=== PATIENT | female | born 1975 | race Two or more races ===

== ENCOUNTER 2019-12-08 17:23 | Emergency (ER) | payer OTHER, SELFPAY ==
[2019-12-08 18:03] VITALS: BP 155/80; PULSE 89; RESP 18; TEMP 36.9; O2SAT 98
[2019-12-08 18:28] VITALS: BP 155/80; PULSE 89; RESP 18; TEMP 36.9; O2SAT 98; BMI 31.8
--- NOTE | 2019-12-08 18:29 | ED_ITS ---
HPI - Extremity Problem General Chief complaint: Skin/Abscess/Foreign Body Stated complaint: abcess Time Seen by Provider: 12/08/19 18:29 Source: patient Mode of arrival: ambulatory Limitations: no limitations History of Present Illness HPI Narrative: Patient is a 44-year-old female who presents with a painful right 3rd digit x 1 week which is getting worse. denies fever or chills, is able to move the digit and has good strength and sensation. states it is worse if she hits it on something. Has no other complaints Related Data Previous Rx's Medication Instructions Recorded cephalexin [Keflex] 500 mg PO TID 7 Days #21 cap 12/08/19 Allergies Allergy/AdvReac Type Severity Reaction Status Date / Time No Known Allergies Allergy Verified 12/08/19 18:27 Review of Systems Review of Systems: Yes all other systems are reviewed and are negative [facility] Past Medical History Attestation statement: The following information was validated with the patient. Medical History HTN (hypertension) Hypothyroid PKD (polycystic kidney disease) Social History Social History Advance Directives: No Advance Directives Information Provided: No Physical Exam Vital Signs: Vital Signs: Vital Signs Temp Pulse Resp BP Pulse Ox 12/08/19 18:28 98.5 F 89 18 155/80 H 98 12/08/19 18:03 98.5 F 89 18 155/80 H 98 Body Mass Index 31.8 Const: General: cooperative, healthy appearing, comfortable, no acute distress and well developed Orientation/consciousness: patient oriented x3 Limitations: no limitations HENMT: Head: Yes normal to inspection Eyes: General: appearance normal, both eyes and all related structures Neck: Neck: Yes normal visual inspection and Yes full ROM Skin: General skin exam: no rashes or lesions noted Neuro: General: patient oriented x3 Extrem: General: Yes normal to inspection Right upper extremity: Extremity exam: right hand (pus and erythema around nail of right third digit) Course Course Course Narrative: 44-year-old female with right 3rd digit paronychia, will do a digital block and drain. Procedures Nail Trephination Time out: Yes Location (finger): middle (right) Sterile prep: betadine Method of drainage: other (#11 blade, did digital block w/2% epi) Procedure successful: Yes Patient tolerated procedure: No Complications Discharge Plan Discharge Clinical Impression: Paronychia of finger of right hand Patient Disposition: Home, Self-Care Instructions: Paronychia (ED) Prescriptions: New cephalexin [Keflex] 500 mg capsule 500 mg PO TID 7 Days Qty: 21 RF: 0
[2019-12-08] MEDS: Lidocaine HCl 2 % MPF 5 ML VIAL INFILTRATI (19:01)
== END 2019-12-08 19:05 | disposition home or self-care (01) ==
PROVIDERS: Emergency Provider Emergency Medicine; PCP Internal Medicine
DX: L03.011 Cellulitis of right finger (principal); M79.641 Pain in right hand; I10 Essential (primary) hypertension; Z79.899 Other long term (current) drug therapy
CPT/HCPCS: 99283; 99284

== ENCOUNTER 2020-01-16 13:20 | Outpatient (REF) | payer OTHER, SELFPAY ==
[2020-01-16 14:30] LABS: Glucose Urine UA NEG (NEG); Leukocyte Esterase Urine NEG (NEG); Nitrite Urine NEG (NEG); Specific Gravity - Urine 1.025 (1.005-1.025); Urine Blood 1+ (NEG); Urine Ketones NEG (NEG); Urine Protein NEG (NEG-TRACE)
[2020-01-16 14:32] LABS: Appearance Urine CLEAR; Color Urine YELLOW
[2020-01-16 14:43] LABS: RBC Urine 0-2 /HPF (0); Squamous Epithelial Cell Urine 1+ /LPF; WBC Urine 0-2 /HPF (0-4)
[2020-01-16 15:12] LABS: Anion Gap 13 (12-20); Blood Urea Nitrogen 15 mg/dL (9-16); Calcium 8.8 mg/dL (8.4-10.2); Carbon Dioxide 25 mmol/L (22-29); Chloride 106 mmol/L (96-108); Estimated Glomerular Filt Rate > 60; Potassium 4.5 mmol/l (3.3-5.1); Sodium 139 mmol/L (135-145)
== END 2020-01-16 13:21 | disposition home or self-care (01) ==
LOC: HO.LAB 13:20
PROVIDERS: PCP Internal Medicine; Visit Provider Internal Medicine Hypertension Specialist
DX: I12.9 Hypertensive chronic kidney disease with stage 1 through stage 4 chronic kidney disease, or unspecified chronic kidney disease (principal); N18.9 Chronic kidney disease, unspecified; Q61.2 Polycystic kidney, adult type; D63.8 Anemia in other chronic diseases classified elsewhere
CPT/HCPCS: 80051; 81001; 82310; 82565; 84520; 87086

== ENCOUNTER → 2020-01-31 08:44 | Outpatient (BNV) | payer OTHER, SELFPAY | PROVIDERS: PCP Internal Medicine; Visit Provider Internal Medicine Medical Oncology | DX: D50.9 Iron deficiency anemia, unspecified (principal) | CPT/HCPCS: 99213; 99214 ==

== ENCOUNTER 2020-02-08 16:59 | Outpatient (REF) | payer OTHER, SELFPAY ==
[2020-02-08 18:31] LABS: MANUAL DIFF FLAG NO
[2020-02-08 19:00] LABS: Basophils Percent Auto 0.4 % (0-2); Eosinophils Absolute Auto 0.2 X10*3/uL (0.0-0.4); Eosinophils Percent Auto 1.9 % (0-4); Hematocrit 35.8 % (37-47); Hemoglobin 10.9 g/dl (12.0-16.0); Imm Gran Abs Auto 0.02 X10*3/uL (0.00-0.03); Imm Gran Pct Auto 0.2 % (0.0-0.4); Lymphocytes Absolute Auto 2.7 X10*3/uL (1.2-4.9); Lymphocytes Percent Auto 29.2 % (20-40); Mean Corpuscular HGB Conc 30.4 g/dl (31.0-35.0); Mean Corpuscular Volume 72.2 fL (80-98); Mean Platelet Volume 10.7 fL (9.4-12.3); Monocytes Absolute Auto 0.6 X10*3/uL (0.1-1.2); Monocytes Percent Auto 6.7 % (2-11); Neutrophils Absolute Auto 5.8 X10*3/uL (2.0-8.3); Neutrophils Percent Auto 61.6 % (45-73); Platelet Count 326 X10*3/uL (160-400); Red Blood Count 4.96 X10*6/uL (4.20-5.50); Red Cell Distribution Width 15.9 % (11.0-16.0); White Blood Count 9.4 X10*3/uL (4.8-10.8)
[2020-02-08 19:07] LABS: Anion Gap 12 (12-20); Blood Urea Nitrogen 16 mg/dL (9-16); Carbon Dioxide 26 mmol/L (22-29); Chloride 106 mmol/L (96-108); Estimated Glomerular Filt Rate > 60; Potassium 4.4 mmol/l (3.3-5.1); Sodium 140 mmol/L (135-145)
[2020-02-08 19:25] LABS: Glucose Urine UA NEG (NEG); Leukocyte Esterase Urine NEG (NEG); Nitrite Urine NEG (NEG); Specific Gravity - Urine 1.025 (1.005-1.025); Urine Blood 1+ (NEG); Urine Ketones NEG (NEG); Urine Protein NEG (NEG-TRACE)
[2020-02-08 19:30] LABS: Appearance Urine CLEAR; Color Urine YELLOW
[2020-02-08 19:44] LABS: WBC Urine 0 /HPF (0-4)
[2020-02-08 19:45] LABS: Squamous Epithelial Cell Urine 3+ /LPF
== END 2020-02-08 17:00 | disposition home or self-care (01) ==
LOC: HO.LAB 16:59
PROVIDERS: PCP Internal Medicine; Visit Provider Internal Medicine Hypertension Specialist
DX: Q61.2 Polycystic kidney, adult type (principal); I12.9 Hypertensive chronic kidney disease with stage 1 through stage 4 chronic kidney disease, or unspecified chronic kidney disease; D63.8 Anemia in other chronic diseases classified elsewhere; N18.30 Chronic kidney disease, stage 3 unspecified
CPT/HCPCS: 36415; 80051; 81001; 81003; 82565; 84520; 85025

== ENCOUNTER 2020-06-27 16:59 | Outpatient (REF) | payer OTHER, SELFPAY ==
[2020-06-27 17:51] LABS: MANUAL DIFF FLAG NO
[2020-06-27 17:53] LABS: Basophils Percent Auto 0.4 % (0-2); Eosinophils Absolute Auto 0.2 X10*3/uL (0.0-0.4); Eosinophils Percent Auto 1.7 % (0-4); Hematocrit 36.7 % (37-47); Hemoglobin 11.2 g/dl (12.0-16.0); Imm Gran Abs Auto 0.04 X10*3/uL (0.00-0.03); Imm Gran Pct Auto 0.4 % (0.0-0.4); Immature Retic Fraction 15.9 % (3.0-15.9); Lymphocytes Absolute Auto 2.8 X10*3/uL (1.2-4.9); Lymphocytes Percent Auto 26.3 % (20-40); Mean Corpuscular HGB Conc 30.5 g/dl (31.0-35.0); Mean Corpuscular Hemoglobin 21.7 pg (27.0-33.0); Mean Corpuscular Volume 71.1 fL (80-98); Mean Platelet Volume 9.6 fL (9.4-12.3); Monocytes Absolute Auto 0.7 X10*3/uL (0.1-1.2); Monocytes Percent Auto 6.3 % (2-11); Neutrophils Absolute Auto 6.8 X10*3/uL (2.0-8.3); Neutrophils Percent Auto 64.9 % (45-73); Platelet Count 321 X10*3/uL (160-400); Red Blood Count 5.16 X10*6/uL (4.20-5.50); Red Cell Distribution Width 16.1 % (11.0-16.0); Retic HGB Equivalent 25.3 pg (30.0-35.0); Reticulocyte Percent 1.8 % (0.5-1.8); White Blood Count 10.5 X10*3/uL (4.8-10.8)
[2020-06-27 18:24] LABS: Alanine Aminotransferase 27 U/L (0-31); Albumin Level 4.4 g/dL (3.5-5.0); Alkaline Phosphatase 81 U/L (39-117); Anion Gap 12 (12-20); Aspartate Amino Transferase 22 U/L (5-31); Bilirubin Total 0.3 mg/dL (0.0-1.0); Blood Urea Nitrogen 19 mg/dL (9-16); Calcium 9.1 mg/dL (8.4-10.2); Carbon Dioxide 26 mmol/L (22-29); Chloride 103 mmol/L (96-108); Cholesterol 193 mg/dL; Estimated Glomerular Filt Rate > 60; Glucose Random 99 mg/dL (60-115); HDL Cholesterol 43 mg/dL; Iron 66 mcg/dL (30-160); LDL Cholesterol Calculated 130 mg/dl; Percent Iron Saturation 18 % (15-50); Potassium 4.3 mmol/L (3.3-5.1); Sodium 137 mmol/L (135-145); Total Iron Binding Capacity 367 mcg/dL (228-428); Total Protein 7.4 g/dL (6.5-8.0); Triglycerides 103 mg/dL; Unsaturated Iron Binding 301 ug/dL
[2020-06-27 18:46] LABS: Free T4 (Free Thyroxine) 0.98 ng/dL (0.71-1.85); Vitamin D 25-OH Total 21.9 ng/mL (>30)
[2020-06-27 19:16] LABS: Ferritin 33 ng/mL (10-250)
[2020-06-28 09:33] LABS: Vitamin B12 480 pg/mL (200-900)
== END 2020-06-27 17:00 | disposition home or self-care (01) ==
LOC: HO.LAB 16:59
PROVIDERS: PCP Internal Medicine; Visit Provider Internal Medicine
DX: D50.0 Iron deficiency anemia secondary to blood loss (chronic) (principal); I10 Essential (primary) hypertension; E03.9 Hypothyroidism, unspecified; E78.00 Pure hypercholesterolemia, unspecified
CPT/HCPCS: 36415; 80053; 80061; 82306; 82607; 82728; 82746; 83540; 84439; 84443; 85025; 85045

== ENCOUNTER 2020-12-20 09:37 | Outpatient (REF) | payer OTHER, SELFPAY ==
[2020-12-20 09:56] LABS: MANUAL DIFF FLAG NO
[2020-12-20 10:21] LABS: Basophils Percent Auto 0.6 % (0-2); Eosinophils Absolute Auto 0.2 X10*3/uL (0.0-0.4); Eosinophils Percent Auto 2.5 % (0-4); Hematocrit 37.4 % (37.0-47.0); Hemoglobin 11.5 g/dl (12.0-16.0); Imm Gran Abs Auto 0.02 X10*3/uL (0.00-0.03); Imm Gran Pct Auto 0.3 % (0.0-0.4); Lymphocytes Absolute Auto 1.7 X10*3/uL (1.2-4.9); Lymphocytes Percent Auto 25.4 % (20-40); Mean Corpuscular HGB Conc 30.7 g/dl (31.0-35.0); Mean Corpuscular Hemoglobin 21.9 pg (27.0-33.0); Mean Corpuscular Volume 71.4 fL (80.0-98.0); Mean Platelet Volume 8.7 fL (9.4-12.3); Monocytes Absolute Auto 0.4 X10*3/uL (0.1-1.2); Monocytes Percent Auto 5.8 % (2-11); Neutrophils Absolute Auto 4.47 x10*3/uL (2.0-8.3); Neutrophils Percent Auto 65.4 % (45-73); Platelet Count 284 X10*3/uL (160-400); Red Blood Count 5.24 X10*6/uL (4.20-5.50); Red Cell Distribution Width 15.5 % (11.0-16.0); White Blood Count 6.8 X10*3/uL (4.8-10.8)
[2020-12-20 10:54] LABS: Alanine Aminotransferase 25 U/L (0-31); Albumin Level 4.2 g/dL (3.5-5.0); Alkaline Phosphatase 80 U/L (39-117); Anion Gap 10 (12-20); Aspartate Amino Transferase 21 U/L (5-31); Bilirubin Total 0.4 mg/dL (0.0-1.0); Blood Urea Nitrogen 13 mg/dL (9-16); Calcium 9.1 mg/dL (8.4-10.2); Carbon Dioxide 27 mmol/L (22-29); Chloride 109 mmol/L (96-108); Estimated Glomerular Filt Rate > 60; Glucose Random 101 mg/dL (60-115); Potassium 4.3 mmol/L (3.3-5.1); Sodium 142 mmol/L (135-145); Total Protein 7.2 g/dL (6.5-8.0)
== END 2020-12-20 09:38 | disposition home or self-care (01) ==
LOC: HO.LAB 09:37
PROVIDERS: PCP Internal Medicine; Visit Provider Internal Medicine
DX: R10.11 Right upper quadrant pain (principal)
CPT/HCPCS: 36415; 80053; 85025

== ENCOUNTER 2020-12-31 19:45 | Emergency (ER) | payer OTHER, SELFPAY ==
--- NOTE | ~2020-12-31 | CT_ITS ---
EXAMINATION: CT ABDOMEN AND PELVIS WITHOUT CONTRAST CLINICAL INFORMATION: Bilateral flank pain. COMPARISON: Ultrasound of abdomen 04/08/2014 TECHNIQUE: Multidetector volumetric imaging was performed from the superior aspect of the liver through the pubic symphysis. Sagittal and coronal reformatted images were obtained on the technologist's workstation. This CT examination was performed using dose optimization techniques as appropriate, variously including the following: *Automated exposure control *Adjustment of mA and/or kV according to patient size (this includes techniques or standardized protocols for targeted exams where dose is matched to indication/reason for exam; i.e. extremities or head) *Use of iterative reconstruction technique DLP: 647 mGy-cm FINDINGS: LUNG BASES: The visualized lung bases are unremarkable. LIVER, GALLBLADDER, AND BILIARY TREE: The liver is normal in size, shape, and attenuation. No focal hepatic lesion or biliary ductal dilatation is present. The gallbladder is unremarkable with no evidence of radiopaque gallstones, gallbladder wall thickening, or obvious pericholecystic inflammatory changes. PANCREAS: Unremarkable. SPLEEN: Unremarkable. ADRENAL GLANDS: Unremarkable. KIDNEYS AND URETERS: Multiple bilateral renal cysts. Largest at the lower pole of the right kidney measures 10 cm. A few demonstrate small thin-walled calcification. No substantial change since abdominal ultrasound 04/08/2014. No follow-up imaging is recommended for simple renal cyst. No suspicious renal mass. No hydronephrosis. No renal or ureteral calculus. BLADDER: Unremarkable. GASTROINTESTINAL TRACT: The small and large bowel are unremarkable. The appendix is unremarkable. ABDOMINAL WALL: No significant hernia is appreciated. LYMPH NODES: Normal. VASCULAR: Unremarkable. PELVIC VISCERA: Unremarkable. OSSEOUS STRUCTURES: Mild degenerative spondylosis of the spine. No acute osseous abnormality. CT/CT abdomen pelvis wo con IMPRESSION: No acute abdomen abnormality CT scan abdomen pelvis.
[2020-12-31 20:00] VITALS: BP 173/62; PULSE 93; RESP 18; TEMP 36.7; O2SAT 98; BMI 30.9
--- NOTE | 2020-12-31 23:17 | ED_ITS ---
HPI - Abdominal Pain General Chief Complaint: General Medical Stated Complaint: Back pain Time Seen by Provider: 12/31/20 23:13 Source: patient Mode of arrival: ambulatory Limitations: no limitations History of Present Illness MD elicited complaint: abdominal pain and flank pain Onset (ago): week(s) (2) Pain Consistency: intermittent Location: LLQ (started today), L flank and R flank Severity: moderate (but now resolved) Quality: stabbing Radiation: none Migration to: no migration Exacerbating factors: nothing Relieving factors: nothing Associated symptoms: nausea and vomiting Related Data Home Medications Medication Instructions Recorded Confirmed meclizine 25 mg tablet 1 tab PO Q8H PRN 01/31/20 07/06/20 multivitamin 1 tab PO DAILY 03/30/20 07/31/20 Previous Rx's Medication Instructions Recorded lisinopril 10 mg tablet 10 mg PO DAILY #90 tab 06/04/20 levothyroxine 25 mcg tablet 25 mcg PO QAM #90 tab 06/05/20 Allergies Allergy/AdvReac Type Severity Reaction Status Date / Time No Known Allergies Allergy Verified 12/31/20 20:00 Review of Systems Review of Systems Constitutional : No Weight loss, No Fever, No Chills ENT/Mouth : No sore throat, No Rhinorrhea Eyes: No Swelling, No Redness Cardiovascular : No Chest Pain, No SOB, NoEdema Respiratory : No Cough, No Sputum, No Wheezing Gastrointestinal : pos Nausea, Positive Vomiting, no Diarrhea, positive abdominal Pain, No Hematochezia, No Melena Genitourinary : No Dysuria, No Urinary Frequency, No Hematuria, No Urgency Musculoskeletal : No joint pain, No Myalgias, No Joint Swelling Skin : No Skin Lesions, No rash Neuro : No Weakness, No Numbness, No Dizziness, No Headache Psych : No Anxiety/Panic, No Depression Heme/Lymph: No Bruising, No Lymphadenopathy Endocrine : No Polyuria, No Polydipsia All other systems reviewed and are negative. Physical Exam Vital Signs: Vital Signs: Last Vital Signs Temp 98.0 F 12/31/20 20:00 Pulse 93 12/31/20 20:00 Resp 18 12/31/20 20:00 BP 173/62 H 12/31/20 20:00 Pulse Ox 98 12/31/20 20:00 Body Mass Index 30.9 Appearance: Alert. Oriented X3. No acute distress. Eyes: Pupils equal, round and reactive to light. ENT: Pharynx normal. Neck: Normal inspection. Neck supple. CVS: Normal heart rate and rhythm. Pulses normal. Respiratory: No respiratory distress. Breath sounds normal. Abdomen: Soft and nontender. Skin: Skin warm and dry. Normal skin color. Normal skin turgor. Extremities: No lower extremity edema. No calf ttp Neuro: Oriented X 3. No motor deficit. No sensory deficit. Course Course Course Narrative: per RN patient eloped from the ED, UA not obtained. MDM - Abdominal Pain MDM Narrative Medical decision making narrative: 45 yo female with hx of HLD, anxiety, polycystic kidney disease reports initially 2 weeks ago R flank pain had planned for US but then today pain moved to LLQ and she had n/v that pain has resolved and she feels better now but pain has been intermittent. At this time will obtain labs, CT scan for diverticulitis, renal colic. Dispo per results and findings. Lab Data Result diagrams: 12/31/20 23:53 12/31/20 23:53 Labs: Lab Results 12/31/20 Range/Units 23:53 WBC 14.9 H (4.8-10.8) X10*3/uL RBC 5.03 (4.20-5.50) X10*6/uL Hgb 11.3 L (12.0-16.0) g/dl Hct 35.4 L (37.0-47.0) % MCV 70.4 L (80.0-98.0) fL MCH 22.5 L (27.0-33.0) pg MCHC 31.9 (31.0-35.0) g/dl RDW 15.4 (11.0-16.0) % Plt Count 315 (160-400) X10*3/uL MPV 10.5 (9.4-12.3) fL Immature Gran % (Auto) 0.3 (0.0-0.4) % Neut % (Auto) 85.2 H (45-73) % Lymph % (Auto) 10.2 L (20-40) % [place] % (Auto) 4.0 (2-11) % Eos % (Auto) 0.1 (0-4) % Baso % (Auto) 0.2 (0-2) % Lymph # (Auto) 1.5 (1.2-4.9) X10*3/uL [place] # (Auto) 0.6 (0.1-1.2) X10*3/uL Eos # (Auto) 0.0 (0.0-0.4) X10*3/uL Baso # (Auto) 0.0 (0.0-0.2) X10*3/uL Abs Immat Gran (auto) 0.05 H (0.00-0.03) X10*3/uL Absolute Neuts (auto) 12.7 H (2.0-8.3) x10*3/uL Absolute Nucleated RBC 0.000 (0.0-0.012) X10*3/uL Nucleated RBC % (auto) 0.0 (0.0-0.2) /100WBC Discharge Plan Discharge Clinical Impression: Abdominal pain Patient Disposition: Elopement Prescriptions: No Action lisinopril 10 mg tablet 10 mg PO DAILY Qty: 90 RF: 2 levothyroxine 25 mcg tablet 25 mcg PO QAM Qty: 90 RF: 2 meclizine 25 mg tablet 1 tab PO Q8H PRN (Reason: nausea) RF: 0 multivitamin Tablet 1 tab PO DAILY RF: 0 PMFSH Past Medical History Attestation statement: The following information was validated with the patient. Medical History Anemia Anxiety HTN (hypertension) Hypothyroid Iron deficiency anemia Obesity (BMI 30-39.9) PKD (polycystic kidney disease) Vitamin D deficiency Surgical History No pertinent past surgical history Family History Family History Mother Breast cancer Maternal Aunt Breast cancer IBS (irritable bowel syndrome) Maternal Aunt Breast cancer Family/Other Breast cancer Family/Other Breast cancer Sister Colon cancer Maternal Uncle Heart attack Brother Diabetes Brother Diabetes Other Mental health problem Social History Social History Housing: Apartment Alcohol intake: former Patient Tobacco Use Status: Never used Tobacco Second Hand Smoke Exposure: No Advance Directives: No Advance Directives Information Provided: No Patient : No service: No Current occupational status: employed
[2020-12-31 23:59] LABS: MANUAL DIFF FLAG NO
[2021-01-01] LABS: Basophils Percent Auto 0.2 % (0-2); Eosinophils Percent Auto 0.1 % (0-4); Hematocrit 35.4 % (37.0-47.0); Hemoglobin 11.3 g/dl (12.0-16.0); Imm Gran Abs Auto 0.05 X10*3/uL (0.00-0.03); Imm Gran Pct Auto 0.3 % (0.0-0.4); Lymphocytes Absolute Auto 1.5 X10*3/uL (1.2-4.9); Lymphocytes Percent Auto 10.2 % (20-40); Mean Corpuscular HGB Conc 31.9 g/dl (31.0-35.0); Mean Corpuscular Hemoglobin 22.5 pg (27.0-33.0); Mean Corpuscular Volume 70.4 fL (80.0-98.0); Mean Platelet Volume 10.5 fL (9.4-12.3); Monocytes Absolute Auto 0.6 X10*3/uL (0.1-1.2); Neutrophils Absolute Auto 12.7 x10*3/uL (2.0-8.3); Neutrophils Percent Auto 85.2 % (45-73); Platelet Count 315 X10*3/uL (160-400); Red Blood Count 5.03 X10*6/uL (4.20-5.50); Red Cell Distribution Width 15.4 % (11.0-16.0); White Blood Count 14.9 X10*3/uL (4.8-10.8)
--- NOTE | 2021-01-01 00:30 | PC.NURSE ---
pt not in bed (19H). this nurse was informed by family member of a different pt (family member of Rm 20) that pt was seen putting on her jacket and walked out of ED. pt not in bathroom or waiting room charge nurse aware.
[2021-01-01 00:32] LABS: Alanine Aminotransferase 29 U/L (0-31); Albumin Level 4.2 g/dL (3.5-5.0); Alkaline Phosphatase 75 U/L (39-117); Anion Gap 15 (12-20); Aspartate Amino Transferase 22 U/L (5-31); Bilirubin Direct 0.2 mg/dL (0.0-0.5); Bilirubin Total 0.4 mg/dL (0.0-1.0); Blood Urea Nitrogen 16 mg/dL (9-16); Calcium 9.2 mg/dL (8.4-10.2); Carbon Dioxide 22 mmol/L (22-29); Chloride 103 mmol/L (96-108); Estimated Glomerular Filt Rate 58; Glucose Random 185 mg/dL (60-115); Lipase 35 U/L (8-78); Potassium 3.8 mmol/L (3.3-5.1); Sodium 136 mmol/L (135-145); Total Protein 7.1 g/dL (6.5-8.0)
== END 2021-01-01 00:30 | disposition left against medical advice (07) ==
PROVIDERS: Emergency Provider Emergency Medicine; PCP Internal Medicine
DX: R10.32 Left lower quadrant pain (principal)
CPT/HCPCS: 36415; 74176; 80048; 80076; 83690; 85025; 99283; 99284

== ENCOUNTER 2021-08-02 10:27 | Outpatient (REF) | payer OTHER, SELFPAY ==
[2021-08-02 12:53] LABS: Cholesterol 172 mg/dL; HDL Cholesterol 41 mg/dL; LDL Cholesterol Calculated 121 mg/dl; Triglycerides 52 mg/dL
[2021-08-02 13:18] LABS: Free T4 (Free Thyroxine) 0.98 ng/dL (0.71-1.85); Thyroid Stimulating Hormone 1.64 uIU/mL (0.32-4.0); Vitamin D 25-OH Total 23.4 ng/mL (>30)
[2021-08-02 14:17] LABS: Folate > 20.0 ng/mL (> or = 4.0); Vitamin B12 392 pg/mL (200-900)
== END 2021-08-02 10:28 | disposition home or self-care (01) ==
LOC: HO.LAB 10:27
PROVIDERS: PCP Internal Medicine; Visit Provider Internal Medicine
DX: E03.9 Hypothyroidism, unspecified (principal); E78.00 Pure hypercholesterolemia, unspecified
CPT/HCPCS: 36415; 80061; 82306; 82607; 82746; 84439; 84443

== ENCOUNTER 2022-01-02 16:43 | Inpatient (IN) | payer OTHER, SELFPAY ==
--- NOTE | ~2022-01-02 | CT_ITS ---
EXAMINATION: CT ABDOMEN AND PELVIS WITHOUT CONTRAST CLINICAL INFORMATION: Left flank pain and left lower quadrant pain. COMPARISON: CT abdomen/pelvis 12/31/2020. TECHNIQUE: Multidetector volumetric imaging was performed from the superior aspect of the liver through the pubic symphysis. Sagittal and coronal reformatted images were obtained on the technologist's workstation. This CT examination was performed using dose optimization techniques as appropriate, variously including the following: *Automated exposure control *Adjustment of mA and/or kV according to patient size (this includes techniques or standardized protocols for targeted exams where dose is matched to indication/reason for exam; i.e. extremities or head) *Use of iterative reconstruction technique DLP: 639 mGy-cm FINDINGS: LUNG BASES: No focal consolidation or pleural effusion. LIVER, GALLBLADDER, AND BILIARY TREE: The liver measures 17.3 cm craniocaudally and demonstrates decreased parenchymal attenuation suggesting the presence of hepatic steatosis. No discrete focal liver lesions are noted in this limited noncontrast examination. Normal appearance of the gallbladder. No biliary ductal dilatation. PANCREAS: Limited noncontrast examination, unremarkable. SPLEEN: Limited noncontrast examination, unremarkable. ADRENAL GLANDS: No adrenal mass. KIDNEYS AND URETERS: There is mild to moderate left-sided hydroureteronephrosis is with a 5 mm calculus in the distal left ureter at about 3 cm proximal to the UVJ. There is mild asymmetric fat stranding around the left kidney and left ureter. No evidence of right hydroureteronephrosis. There are innumerable cysts in both kidneys, some demonstrating thin peripheral calcifications. There are also scattered hyperattenuating observations, for instance measuring 0.8 cm in the lower left kidney (3:38), likely representing proteinaceous/hemorrhagic cyst although incompletely characterized in this limited noncontrast examination. There are scattered calcific densities in both kidneys that could represent calculi, medullary nephrocalcinosis or calcifications associated with the innumerable cysts. BLADDER: Unremarkable. GASTROINTESTINAL TRACT: The stomach and the small bowel are nondilated. Normal appendix. Mild diverticulosis without evidence of pericolonic inflammatory changes or bowel obstruction. ABDOMINAL WALL: No significant hernia is appreciated. LYMPH NODES: There are prominent but subcentimeter in short axis left-sided retroperitoneal and left-sided pelvic lymph nodes, possibly reactive. VASCULAR: The abdominal aorta is of normal diameter. PELVIC VISCERA: The endometrium is not well defined in the absence of IV contrast measuring approximately 0.8 cm in thickness. No pelvic mass. OSSEOUS STRUCTURES: No acute or aggressive appearing osseous abnormalities. Degenerative changes of the spine. CT/CT abdomen pelvis wo IV con IMPRESSION: 1. Mild to moderate left-sided hydroureteronephrosis with a 5 mm calculus in the distal left ureter. 2. There are innumerable cysts in both kidneys, some of which are hyperattenuating and likely represent proteinaceous/hemorrhagic cysts although incompletely characterized in this limited noncontrast examination. Recommend further evaluation with a nonemergent abdominal MRI with and without intravenous contrast, renal mass protocol. 3. Prominent left-sided retroperitoneal and pelvic lymph nodes are likely reactive in the setting of hydronephrosis. Attention on follow-up in subsequent studies is recommended. 4. Mild diverticulosis but no evidence of acute diverticulitis. 5. Hepatic steatosis. 6. The endometrium is not well defined in the absence of IV contrast but appears thickened for a postmenopausal patient. Recommend correlation with patient's menstrual history and if indicated, consider further evaluation with a dedicated pelvic ultrasound.
--- NOTE | ~2022-01-02 | FL_ITS ---
EXAMINATION: FL guidance in OR INDICATION: Reason for Exam cystoscopy ureteroscopy retro laser COMPARISON: CT abdomen pelvis 01/02/2022 TECHNIQUE: Multiple fluoroscopic OR images were provided. FLUOROSCOPY TIME: 26.8 seconds CUMULATIVE DOSE: 10.3 mGy FINDINGS: Intraoperative fluoroscopy was obtained. No radiologist was in attendance. Please refer to operative report for complete evaluation. Placement of a left nephroureteral stent. FL/FL guidance in OR IMPRESSION: Intraoperative fluoroscopy was obtained. No radiologist was in attendance. Please refer to operative report for complete evaluation.
[2022-01-02 16:49] VITALS: BP 134/72; PULSE 96; RESP 18; TEMP 36.4; O2SAT 98; BMI 33.6
--- NOTE | 2022-01-02 16:49 | ED.GENADULT ---
HPI - General Adult General Chief complaint: Back Pain/Injury Stated complaint: left side lower back pain Time Seen by Provider: 01/02/22 17:58 Related Data Home Medications Medication Instructions Recorded Confirmed multivitamin 1 tab PO DAILY 03/30/20 01/02/22 levothyroxine 25 mcg tablet 25 mcg PO DAILY@0600 01/02/22 01/02/22 Previous Rx's Medication Instructions Recorded hydrocortisone 2.5 % topical cream 1 appl NM BID PRN itching #30 grams 08/01/21 with perineal applicator (Proctosol HC) meclizine 25 mg tablet 25 mg PO Q8H PRN nausea #20 tabs 09/26/21 lisinopril 10 mg tablet 10 mg PO DAILY #90 tabs 09/30/21 Allergies Allergy/AdvReac Type Severity Reaction Status Date / Time No Known Allergies Allergy Verified 12/09/21 12:50 PMFSH Past Medical History Medical History Anemia Anxiety Family history of colon cancer HTN (hypertension) Hypothyroid Iron deficiency anemia Obesity (BMI 30-39.9) PKD (polycystic kidney disease) Vitamin D deficiency Surgical History No pertinent past surgical history Family History Family History Mother Breast cancer Maternal Aunt Breast cancer IBS (irritable bowel syndrome) Maternal Aunt Breast cancer Family/Other Breast cancer Family/Other Breast cancer Sister Colon cancer Cervical cancer Maternal Uncle Heart attack Brother Diabetes Brother Diabetes Other Mental health problem Social History Social History Household Members: Family Housing: Apartment Are you a primary furnace caretaker to a significant other at home: No Do you presently have visiting nurse or other home services: No Alcohol intake: former Patient Tobacco Use Status: Never used Tobacco e-Cigarette/Vaping Use: Never Used Second Hand Smoke Exposure: No Advance Directives: No Advance Directives Information Provided: Yes service: No Current occupational status: employed Cognitive needs: No Hearing needs: No Vision needs: Yes Physical Exam ED Vital Signs: Vital Signs - 24 hr 01/02/22 16:49 01/02/22 19:56 Temperature 97.5 F 97.1 F Pulse Rate 96 78 Respiratory Rate 18 18 Blood Pressure 134/72 136/76 Pulse Oximetry 98 95 Oxygen Delivery Method Room Air Room Air BMI result Body Mass Index 33.6 Course Course Course Narrative: SIL--46yo F w/PMHx anemia, anxiety, HTN, hypothyroid, PKD, c/o L flank pain radiating to LLQ x 2 days. Reports assoc nausea and vomiting from pain. Denies fever, hematuria, dysuria, diarrhea/constipation Labs, UA, CT AP ordered in triage Medications Administered Generic Name Dose Route Start Last Admin Trade Name Freq PRN Reason Stop Dose Admin Dextrose/Sodium Chloride 1,000 mls @ 100 mls/hr 01/02/22 21:45 01/03/22 11:38 D5ns IVCONT 100 mls/hr .Q10H YEFRI Administration Ketorolac Tromethamine 15 mg 01/03/22 01:00 01/03/22 13:40 Ketorolac Tromethamine 15 Mg/Ml Vial IVPUSH 15 mg Q6H YEFRI Administration Levothyroxine Sodium 25 mcg 01/03/22 06:00 01/03/22 06:24 Levothyroxine Sodium 25 Mcg Tablet PO 25 mcg DAILY@0600 YEFRI Administration Lisinopril 10 mg 01/03/22 09:00 01/03/22 07:49 Lisinopril 10 Mg Tablet PO 10 mg DAILY YEFRI Administration Protocol Multivitamins/Vitamin C 1 tab 01/03/22 09:00 01/03/22 07:49 Multivitamin Tablet PO 1 tab DAILY YEFRI Administration Ondansetron HCl 4 mg 01/03/22 00:52 01/03/22 01:55 Ondansetron Hcl 4 Mg/2 Ml Vial IVPUSH 4 mg Q4H PRN Administration Nausea Sodium Chloride 3 ml 01/03/22 00:00 01/03/22 09:19 0.9 % Sodium Chloride Flush 3 Ml Syringe IVFLUSH Not Given QSHIFT YEFRI Discontinued Medications Generic Name Dose Route Start Last Admin Trade Name Freq PRN Reason Stop Dose Admin Hydromorphone HCl 0.5 mg 01/02/22 19:56 01/02/22 20:23 Hydromorphone Hcl 0.5 Mg/0.5 Ml Syringe IVPUSH 01/02/22 19:57 0.5 mg ONCE ONE Administration Protocol Hydromorphone HCl 0.5 mg 01/03/22 00:18 01/03/22 00:46 Hydromorphone Hcl 0.5 Mg/0.5 Ml Syringe IVPUSH 01/03/22 00:19 0.5 mg ONCE ONE Administration Protocol Sodium Chloride 1,000 mls @ 999 mls/hr 01/02/22 18:00 01/02/22 19:44 Ns IV 01/02/22 19:00 Infused .Q1H1M YEFRI Infusion Ceftriaxone Sodium 1 gm/ 50 mls @ 100 mls/hr 01/02/22 18:28 01/02/22 19:45 Sodium Chloride IV 01/02/22 18:57 Infused ONCE ONE Infusion Sodium Chloride 1,000 mls @ 999 mls/hr 01/02/22 19:00 01/02/22 21:17 Ns IV 01/02/22 20:00 Infused .Q1H1M YEFRI Infusion Cefazolin Sodium/Dextrose 2 gm in 50 mls @ 100 mls/hr 01/03/22 11:13 01/03/22 13:39 Ancef IV 01/03/22 11:42 100 mls/hr PREOP ONE Administration Morphine Sulfate 4 mg 01/02/22 18:02 01/02/22 18:19 Morphine Sulfate 4 Mg/Ml Cartridge IVPUSH 01/02/22 18:03 4 mg ONCE ONE Administration Protocol Prednisone 20 mg 01/02/22 17:58 01/02/22 18:10 Prednisone 20 Mg Tablet PO 01/02/22 17:59 20 mg ONCE ONE Administration Tamsulosin HCl 0.4 mg 01/02/22 17:58 01/02/22 18:10 Tamsulosin Hcl 0.4 Mg Capsule PO 01/02/22 17:59 0.4 mg ONCE ONE Administration Medical Decision Making Lab Data Result diagrams: 01/03/22 06:04 01/03/22 06:04 Labs: Lab Results 01/02/22 01/02/22 01/02/22 Range/Units 18:02 18:02 18:02 WBC 15.1 H (4.8-10.8) X10*3/uL RBC 4.88 (4.20-5.50) X10*6/uL Hgb 10.7 L (12.0-16.0) g/dl Hct 34.6 L (37.0-47.0) % MCV 70.9 L (80.0-98.0) fL MCH 21.9 L (27.0-33.0) pg MCHC 30.9 L (31.0-35.0) g/dl RDW 15.4 (11.0-16.0) % Plt Count 316 (160-400) X10*3/uL MPV 11.0 (9.4-12.3) fL Immature Gran % (Auto) 0.5 H (0.0-0.4) % Neut % (Auto) 85.6 H (45-73) % Lymph % (Auto) 7.1 L (20-40) % [place] % (Auto) 6.4 (2-11) % Eos % (Auto) 0.1 (0-4) % Baso % (Auto) 0.3 (0-2) % Lymph # (Auto) 1.1 L (1.2-4.9) X10*3/uL [place] # (Auto) 1.0 (0.1-1.2) X10*3/uL Eos # (Auto) 0.0 (0.0-0.4) X10*3/uL Baso # (Auto) 0.0 (0.0-0.2) X10*3/uL Abs Immat Gran (auto) 0.07 H (0.00-0.03) X10*3/uL Absolute Neuts (auto) 13.0 H (2.0-8.3) x10*3/uL Absolute Nucleated RBC 0.000 (0.0-0.012) X10*3/uL Nucleated RBC % (auto) 0.0 (0.0-0.2) /100WBC Sodium 138 (135-145) mmol/L Potassium 4.1 (3.3-5.1) mmol/L Chloride 107 (96-108) mmol/L Carbon Dioxide 23 (22-29) mmol/L Anion Gap 12 (12-20) BUN 18 H (9-16) mg/dL Creatinine 1.41 H (0.5-1.4) mg/dL Estim Creat Clear Calc 50.7 Estimated GFR 40 Random Glucose 122 H (60-115) mg/dL Lactic Acid (0.5-2.0) mmol/L Calcium 8.9 (8.4-10.2) mg/dL Total Bilirubin 0.4 (0.0-1.0) mg/dL Direct Bilirubin 0.2 (0.0-0.5) mg/dL AST 16 (5-31) U/L ALT 20 (0-31) U/L Alkaline Phosphatase 76 (39-117) U/L Total Protein 7.1 (6.5-8.0) g/dL Albumin 4.1 (3.5-5.0) g/dL Lipase 38 (8-78) U/L Urine Color Yellow Urine Appearance Clear Urine pH 5.0 (5.0-9.0) Ur Specific [place] >= 1.030 H (1.005-1.025) Urine Protein Trace (Neg-Trace) mg/dL Urine Glucose (UA) Negative (Negative) mg/dL Urine Ketones Negative (Negative) mg/dL Urine Blood Trace (Negative) Urine Nitrite Negative (Negative) Ur Leukocyte Esterase Negative (Negative) Urine RBC 0-2 (0-2) /HPF Urine WBC 0-5 (0-5) /HPF Ur Squamous Epith Cells 3-5 (0-2) /HPF Urine Bacteria None Seen (None Seen) Hyaline Casts 0-2 (0-2) /LPF COVID-19 ([facility]) (Negative) COVID-19 Clin Com 01/02/22 01/02/22 Range/Units 19:35 19:35 WBC (4.8-10.8) X10*3/uL RBC (4.20-5.50) X10*6/uL Hgb (12.0-16.0) g/dl Hct (37.0-47.0) % MCV (80.0-98.0) fL MCH (27.0-33.0) pg MCHC (31.0-35.0) g/dl RDW (11.0-16.0) % Plt Count (160-400) X10*3/uL MPV (9.4-12.3) fL Immature Gran % (Auto) (0.0-0.4) % Neut % (Auto) (45-73) % Lymph % (Auto) (20-40) % [place] % (Auto) (2-11) % Eos % (Auto) (0-4) % Baso % (Auto) (0-2) % Lymph # (Auto) (1.2-4.9) X10*3/uL [place] # (Auto) (0.1-1.2) X10*3/uL Eos # (Auto) (0.0-0.4) X10*3/uL Baso # (Auto) (0.0-0.2) X10*3/uL Abs Immat Gran (auto) (0.00-0.03) X10*3/uL Absolute Neuts (auto) (2.0-8.3) x10*3/uL Absolute Nucleated RBC (0.0-0.012) X10*3/uL Nucleated RBC % (auto) (0.0-0.2) /100WBC Sodium (135-145) mmol/L Potassium (3.3-5.1) mmol/L Chloride (96-108) mmol/L Carbon Dioxide (22-29) mmol/L Anion Gap (12-20) BUN (9-16) mg/dL Creatinine (0.5-1.4) mg/dL Estim Creat Clear Calc Estimated GFR Random Glucose (60-115) mg/dL Lactic Acid 0.5 (0.5-2.0) mmol/L Calcium (8.4-10.2) mg/dL Total Bilirubin (0.0-1.0) mg/dL Direct Bilirubin (0.0-0.5) mg/dL AST (5-31) U/L ALT (0-31) U/L Alkaline Phosphatase (39-117) U/L Total Protein (6.5-8.0) g/dL Albumin (3.5-5.0) g/dL Lipase (8-78) U/L Urine Color Urine Appearance Urine pH (5.0-9.0) Ur Specific [place] (1.005-1.025) Urine Protein (Neg-Trace) mg/dL Urine Glucose (UA) (Negative) mg/dL Urine Ketones (Negative) mg/dL Urine Blood (Negative) Urine Nitrite (Negative) Ur Leukocyte Esterase (Negative) Urine RBC (0-2) /HPF Urine WBC (0-5) /HPF Ur Squamous Epith Cells (0-2) /HPF Urine Bacteria (None Seen) Hyaline Casts (0-2) /LPF COVID-19 ([facility]) Negative (Negative) COVID-19 Clin Com See Note Discharge Plan Discharge Clinical Impression: Obstructive uropathy, ZACHERY (acute kidney injury) Patient Disposition: Admitted As Inpatient
--- NOTE | 2022-01-02 18:00 | ED.GENADULT ---
HPI - General Adult General Chief complaint: Back Pain/Injury Stated complaint: left side lower back pain Time Seen by Provider: 01/02/22 17:58 Source: patient Mode of arrival: ambulatory Limitations: no limitations History of Present Illness HPI narrative: 46-year-old female with a past pertinent medical history of PKD presents today to the emergency department for 2 days of left-sided flank pain. 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 However pain was initially colicky in nature and worsened and is now constant. Patient describes this pain as a constant pain to the left flank area that does not radiate. Her pain is an 8/10. Has had associated nausea and vomiting, which occurs after she has the left sided flank pain. Has had 2 similar episodes in the past but no confirmed nephrolithiasis. Patient notes that she consumes a lot of sugary drinks, however drinks a lot of cranberry juice. Denies fevers, chills, shortness of breath, chest pain, dysuria, hematuria, nocturia, urinary incontinence, increased frequency of urination or diarrhea. No recent sick contacts. Has department assistant but has not followed up with them since prior to the COVID pandemic. Does not see urology. Related Data Home Medications Medication Instructions Recorded Confirmed multivitamin 1 tab PO DAILY 03/30/20 01/02/22 levothyroxine 25 mcg tablet 25 mcg PO DAILY@0600 01/02/22 01/02/22 Previous Rx's Medication Instructions Recorded hydrocortisone 2.5 % topical cream 1 appl VT BID PRN itching #30 grams 08/01/21 with perineal applicator (Proctosol HC) meclizine 25 mg tablet 25 mg PO Q8H PRN nausea #20 tabs 09/26/21 lisinopril 10 mg tablet 10 mg PO DAILY #90 tabs 09/30/21 Allergies Allergy/AdvReac Type Severity Reaction Status Date / Time No Known Allergies Allergy Verified 12/09/21 12:50 Review of Systems Review of Systems: Constitutional : No Weight loss, No Fever, No Chills, No Fatigue, No Malaise ENT/Mouth : No sore throat, No Rhinorrhea Eyes: No Eye Pain, No Swelling, No Redness Cardiovascular : No Chest Pain, No SOB, No Dyspnea on Exertion, No Orthopnea, No Edema, No Palpitations Respiratory : No Cough, No Sputum, No Wheezing Gastrointestinal : +Nausea, + Vomiting, No Diarrhea, No Constipation, No abdominal Pain, No Hematochezia, No Melena Genitourinary : No Dysuria, No Urinary Frequency, No Hematuria, Musculoskeletal : No joint pain, No Myalgias, No Joint Swelling, + L flank pain Skin : No Skin Lesions, No rash Neuro : No Weakness, No Numbness, No Dizziness, No Headache Psych : No Anxiety/Panic, No Depression All other systems reviewed and are negative Yes all other systems are reviewed and are negative [facility] Past Medical History Attestation statement: The following information was validated with the patient. Source: old records reviewed and nursing notes reviewed Medical History Anemia Anxiety Family history of colon cancer HTN (hypertension) Hypothyroid Iron deficiency anemia Obesity (BMI 30-39.9) PKD (polycystic kidney disease) Vitamin D deficiency Surgical History No pertinent past surgical history Family History Family History Mother Breast cancer Maternal Aunt Breast cancer IBS (irritable bowel syndrome) Maternal Aunt Breast cancer Family/Other Breast cancer Family/Other Breast cancer Sister Colon cancer Cervical cancer Maternal Uncle Heart attack Brother Diabetes Brother Diabetes Other Mental health problem Social History Social History Household Members: Family Housing: Apartment Are you a primary respiratory care instructor to a significant other at home: No Do you presently have visiting nurse or other home services: No Alcohol intake: former Patient Tobacco Use Status: Never used Tobacco e-Cigarette/Vaping Use: Never Used Second Hand Smoke Exposure: No Advance Directives: No Advance Directives Information Provided: Yes service: No Current occupational status: employed Cognitive needs: No Hearing needs: No Vision needs: Yes Physical Exam ED Vital Signs: Vital Signs - 24 hr 01/02/22 16:49 01/02/22 19:56 Temperature 97.5 F 97.1 F Pulse Rate 96 78 Respiratory Rate 18 18 Blood Pressure 134/72 136/76 Pulse Oximetry 98 95 Oxygen Delivery Method Room Air Room Air BMI result Body Mass Index 33.6 vss Appearance: Alert.? Oriented X3.? No acute distress.? Head: Normocephalic, atraumatic, no step-offs or deformities Eyes: Pupils equal, round and reactive to light.? CVS: Normal heart rate and rhythm.? Pulses normal.? Respiratory: No respiratory distress.? Breath sounds normal.? Abdomen: Soft and nontender.? Skin: Skin warm and dry.? Normal skin color.? Normal skin turgor.? Extremities: No lower extremity edema.? No calf ttp. 5/5 strength to bilateral upper and lower extremities Back: No midline tenderness, no C-spine tenderness, full range of motion, + CVA tenderness on left negative on right Neuro: Oriented X 3.? No motor deficit.? No sensory deficit. CN 2-12 intact Course Reevaluation(s) Reevaluation #1: CT of the abdomen and pelvis with mild to moderate left-sided hydroureter nephrosis with 5 mm calculus in distal left ureter, will give patient fluids, morphine, prednisone, Flomax. Pending laboratory studies and urine. Time: 18:02 Reevaluation #2: Labs w/ showing leukocytosis 15.1, acute kidney injury is noted 18 and 1.41 likely secondary to obstructive uropathy. UA without infection. Lactic acid pending. Will reach out to urology for input. Will order ceftriaxone at this time Time: 18:34 Reevaluation #3: Dr. Vega recommends increase pain control (Dilaudid), and another liter of fluids Time: 18:58 Additional Reevaluation(s): 2029 Upon re-evaluation patient tells me she is feeling better however still having intermittent episodes of pain. Pain better than upon arrival, patient appears comfortable. Will do a p.o. trial. 2050 Patient tolerating p.o. well. Patient is still reporting some pain discuss this case with Urology, urology will admit for pain control. Comfortable with plan Medications Administered Discontinued Medications Generic Name Dose Route Start Last Admin Trade Name Freq PRN Reason Stop Dose Admin Hydromorphone HCl 0.5 mg 01/02/22 19:56 01/02/22 20:23 Hydromorphone Hcl 0.5 Mg/0.5 Ml Syringe IVPUSH 01/02/22 19:57 0.5 mg ONCE ONE Administration Protocol Sodium Chloride 1,000 mls @ 999 mls/hr 01/02/22 18:00 01/02/22 19:44 Ns IV 01/02/22 19:00 Infused .Q1H1M YEFRI Infusion Ceftriaxone Sodium 1 gm/ 50 mls @ 100 mls/hr 01/02/22 18:28 01/02/22 19:45 Sodium Chloride IV 01/02/22 18:57 Infused ONCE ONE Infusion Sodium Chloride 1,000 mls @ 999 mls/hr 01/02/22 19:00 01/02/22 19:40 Ns IV 01/02/22 20:00 999 mls/hr .Q1H1M YEFRI Administration Morphine Sulfate 4 mg 01/02/22 18:02 01/02/22 18:19 Morphine Sulfate 4 Mg/Ml Cartridge IVPUSH 01/02/22 18:03 4 mg ONCE ONE Administration Protocol Prednisone 20 mg 01/02/22 17:58 01/02/22 18:10 Prednisone 20 Mg Tablet PO 01/02/22 17:59 20 mg ONCE ONE Administration Tamsulosin HCl 0.4 mg 01/02/22 17:58 01/02/22 18:10 Tamsulosin Hcl 0.4 Mg Capsule PO 01/02/22 17:59 0.4 mg ONCE ONE Administration Medical Decision Making [facility] Narrative Medical decision making narrative: 1800 46-year-old female presents with left-sided flank pain x2 days worsening reports pain is severe, intermittent. Physical exam with left-sided CVA tenderness. Will rule out UTI versus cystitis versus pyelonephritis, versus obstructing uropathy/kidney stone. No signs of acute abdomen on exam. Unlikely diverticulitis, appendicitis, pancreatitis, cholecystitis. Plan at this time is to obtain basic labs, urine, imaging. Will give control patient's pain. Medical Records Medical records reviewed: Yes I reviewed the patient's medical records. Lab Data Lab results reviewed: Yes I reviewed the patient's lab results. Result diagrams: 01/02/22 18:02 01/02/22 18:02 Labs: Lab Results 01/02/22 01/02/22 01/02/22 Range/Units 18:02 18:02 18:02 WBC 15.1 H (4.8-10.8) X10*3/uL RBC 4.88 (4.20-5.50) X10*6/uL Hgb 10.7 L (12.0-16.0) g/dl Hct 34.6 L (37.0-47.0) % MCV 70.9 L (80.0-98.0) fL MCH 21.9 L (27.0-33.0) pg MCHC 30.9 L (31.0-35.0) g/dl RDW 15.4 (11.0-16.0) % Plt Count 316 (160-400) X10*3/uL MPV 11.0 (9.4-12.3) fL Immature Gran % (Auto) 0.5 H (0.0-0.4) % Neut % (Auto) 85.6 H (45-73) % Lymph % (Auto) 7.1 L (20-40) % [place] % (Auto) 6.4 (2-11) % Eos % (Auto) 0.1 (0-4) % Baso % (Auto) 0.3 (0-2) % Lymph # (Auto) 1.1 L (1.2-4.9) X10*3/uL [place] # (Auto) 1.0 (0.1-1.2) X10*3/uL Eos # (Auto) 0.0 (0.0-0.4) X10*3/uL Baso # (Auto) 0.0 (0.0-0.2) X10*3/uL Abs Immat Gran (auto) 0.07 H (0.00-0.03) X10*3/uL Absolute Neuts (auto) 13.0 H (2.0-8.3) x10*3/uL Absolute Nucleated RBC 0.000 (0.0-0.012) X10*3/uL Nucleated RBC % (auto) 0.0 (0.0-0.2) /100WBC Sodium 138 (135-145) mmol/L Potassium 4.1 (3.3-5.1) mmol/L Chloride 107 (96-108) mmol/L Carbon Dioxide 23 (22-29) mmol/L Anion Gap 12 (12-20) BUN 18 H (9-16) mg/dL Creatinine 1.41 H (0.5-1.4) mg/dL Estim Creat Clear Calc 50.7 Estimated GFR 40 Random Glucose 122 H (60-115) mg/dL Lactic Acid (0.5-2.0) mmol/L Calcium 8.9 (8.4-10.2) mg/dL Total Bilirubin 0.4 (0.0-1.0) mg/dL Direct Bilirubin 0.2 (0.0-0.5) mg/dL AST 16 (5-31) U/L ALT 20 (0-31) U/L Alkaline Phosphatase 76 (39-117) U/L Total Protein 7.1 (6.5-8.0) g/dL Albumin 4.1 (3.5-5.0) g/dL Lipase 38 (8-78) U/L Urine Color Yellow Urine Appearance Clear Urine pH 5.0 (5.0-9.0) Ur Specific [place] >= 1.030 H (1.005-1.025) Urine Protein Trace (Neg-Trace) mg/dL Urine Glucose (UA) Negative (Negative) mg/dL Urine Ketones Negative (Negative) mg/dL Urine Blood Trace (Negative) Urine Nitrite Negative (Negative) Ur Leukocyte Esterase Negative (Negative) Urine RBC 0-2 (0-2) /HPF Urine WBC 0-5 (0-5) /HPF Ur Squamous Epith Cells 3-5 (0-2) /HPF Urine Bacteria None Seen (None Seen) Hyaline Casts 0-2 (0-2) /LPF COVID-19 (LILLY) (Negative) COVID-19 Clin Com 01/02/22 01/02/22 Range/Units 19:35 19:35 WBC (4.8-10.8) X10*3/uL RBC (4.20-5.50) X10*6/uL Hgb (12.0-16.0) g/dl Hct (37.0-47.0) % MCV (80.0-98.0) fL MCH (27.0-33.0) pg MCHC (31.0-35.0) g/dl RDW (11.0-16.0) % Plt Count (160-400) X10*3/uL MPV (9.4-12.3) fL Immature Gran % (Auto) (0.0-0.4) % Neut % (Auto) (45-73) % Lymph % (Auto) (20-40) % [place] % (Auto) (2-11) % Eos % (Auto) (0-4) % Baso % (Auto) (0-2) % Lymph # (Auto) (1.2-4.9) X10*3/uL [place] # (Auto) (0.1-1.2) X10*3/uL Eos # (Auto) (0.0-0.4) X10*3/uL Baso # (Auto) (0.0-0.2) X10*3/uL Abs Immat Gran (auto) (0.00-0.03) X10*3/uL Absolute Neuts (auto) (2.0-8.3) x10*3/uL Absolute Nucleated RBC (0.0-0.012) X10*3/uL Nucleated RBC % (auto) (0.0-0.2) /100WBC Sodium (135-145) mmol/L Potassium (3.3-5.1) mmol/L Chloride (96-108) mmol/L Carbon Dioxide (22-29) mmol/L Anion Gap (12-20) BUN (9-16) mg/dL Creatinine (0.5-1.4) mg/dL Estim Creat Clear Calc Estimated GFR Random Glucose (60-115) mg/dL Lactic Acid 0.5 (0.5-2.0) mmol/L Calcium (8.4-10.2) mg/dL Total Bilirubin (0.0-1.0) mg/dL Direct Bilirubin (0.0-0.5) mg/dL AST (5-31) U/L ALT (0-31) U/L Alkaline Phosphatase (39-117) U/L Total Protein (6.5-8.0) g/dL Albumin (3.5-5.0) g/dL Lipase (8-78) U/L Urine Color Urine Appearance Urine pH (5.0-9.0) Ur Specific [place] (1.005-1.025) Urine Protein (Neg-Trace) mg/dL Urine Glucose (UA) (Negative) mg/dL Urine Ketones (Negative) mg/dL Urine Blood (Negative) Urine Nitrite (Negative) Ur Leukocyte Esterase (Negative) Urine RBC (0-2) /HPF Urine WBC (0-5) /HPF Ur Squamous Epith Cells (0-2) /HPF Urine Bacteria (None Seen) Hyaline Casts (0-2) /LPF COVID-19 (LILLY) Negative (Negative) COVID-19 Clin Com See Note Critical Care Time Critical Care Time Critical Care Time: Yes Total Critical Care Time: 35 Attestation: I attest to this time spent taking care of the patient, obtaining history, physical, reviewing labs, imaging, speaking to my attending, speaking to specialist. Discharge Plan Discharge Clinical Impression: Obstructive uropathy, ZACHERY (acute kidney injury) Patient Disposition: Admitted As Inpatient
[2022-01-02 18:08] LABS: MANUAL DIFF FLAG NO
[2022-01-02] MEDS: Tamsulosin HCL 0.4 MG CAPSULE PO (18:10)
[2022-01-02] MEDS: predniSONE 20 MG TABLET PO (18:10)
[2022-01-02] MEDS: Morphine Sulfate 4 MG/ML CARTRIDGE IVPUSH (18:19)
[2022-01-02 18:21] LABS: Basophils Percent Auto 0.3 % (0-2); Eosinophils Percent Auto 0.1 % (0-4); Hematocrit 34.6 % (37.0-47.0); Hemoglobin 10.7 g/dl (12.0-16.0); Imm Gran Abs Auto 0.07 X10*3/uL (0.00-0.03); Imm Gran Pct Auto 0.5 % (0.0-0.4); Lymphocytes Absolute Auto 1.1 X10*3/uL (1.2-4.9); Lymphocytes Percent Auto 7.1 % (20-40); Mean Corpuscular HGB Conc 30.9 g/dl (31.0-35.0); Mean Corpuscular Hemoglobin 21.9 pg (27.0-33.0); Mean Corpuscular Volume 70.9 fL (80.0-98.0); Monocytes Percent Auto 6.4 % (2-11); Neutrophils Percent Auto 85.6 % (45-73); Platelet Count 316 X10*3/uL (160-400); Red Blood Count 4.88 X10*6/uL (4.20-5.50); Red Cell Distribution Width 15.4 % (11.0-16.0); White Blood Count 15.1 X10*3/uL (4.8-10.8)
[2022-01-02 18:24] LABS: Appearance Urine Clear; Color Urine Yellow; Glucose Urine UA Negative (Negative); Leukocyte Esterase Urine Negative (Negative); Nitrite Urine Negative (Negative); UMIC TRIGGER UACC YES; Urine Blood Trace (Negative); Urine Ketones Negative (Negative); Urine Protein Trace mg/dL (Neg-Trace)
[2022-01-02] MEDS: 0.9 % Sodium Chloride 1,000 ML 999 ML IV ×2 (18:24→19:40)
[2022-01-02 18:26] LABS: Alanine Aminotransferase 20 U/L (0-31); Albumin Level 4.1 g/dL (3.5-5.0); Alkaline Phosphatase 76 U/L (39-117); Anion Gap 12 (12-20); Aspartate Amino Transferase 16 U/L (5-31); Bilirubin Direct 0.2 mg/dL (0.0-0.5); Bilirubin Total 0.4 mg/dL (0.0-1.0); Blood Urea Nitrogen 18 mg/dL (9-16); Calcium 8.9 mg/dL (8.4-10.2); Carbon Dioxide 23 mmol/L (22-29); Chloride 107 mmol/L (96-108); Creatinine Clr Calc Pharmacy 50.7; Estimated Glomerular Filt Rate 40; Glucose Random 122 mg/dL (60-115); Lipase 38 U/L (8-78); Potassium 4.1 mmol/L (3.3-5.1); Sodium 138 mmol/L (135-145); Total Protein 7.1 g/dL (6.5-8.0)
[2022-01-02 18:31] LABS: Specific Gravity - Urine >= 1.030 (1.005-1.025)
[2022-01-02] MEDS: cefTRIAXone sodium 1 GM in 0.9 % Sodium Chloride 50 ML IV (18:51)
--- NOTE | 2022-01-02 18:54 | PHA.MEDREC ---
Pharmacy Consult ? Medication Reconciliation Pharmacy has completed the medication reconciliation.
[2022-01-02 18:59] LABS: Bacteria Urine None Seen (None Seen); Hyaline Casts Urine 0-2 /LPF (0-2); RBC Urine 0-2 /HPF (0-2); WBC Urine 0-5 /HPF (0-5)
[2022-01-02 19:56] VITALS: BP 136/76; PULSE 78; RESP 18; TEMP 36.2; O2SAT 95
[2022-01-02 19:57] LABS: Lactic Acid 0.5 mmol/L (0.5-2.0)
[2022-01-02 19:59] LABS: COVID-19 Test Negative (Negative)
[2022-01-02] MEDS: HYDROmorphone HCl 0.5 MG/0.5 ML SYRINGE IVPUSH (20:23)
--- NOTE | 2022-01-02 21:27 | PC.NURSE ---
PT COMPLETING PO TRIAL WITH NO ISSUE, PAIN RESOLVED WITH MEDS.
[2022-01-02] MEDS: Dextrose 5 % and 0.9 % NaCl 1,000 ML 100 ML IVCONT (22:53)
[2022-01-02 23:28] VITALS: BP 142/72; PULSE 54; RESP 16; TEMP 36.7; O2SAT 100
[2022-01-03] VITALS (8 sets, daily range): BP systolic 115–128; BP diastolic 55–70; PULSE 66–98; RESP 14–20; TEMP 35.9–37.3; O2SAT 96–98
[2022-01-03] MEDS: HYDROmorphone HCl 0.5 MG/0.5 ML SYRINGE IVPUSH (00:46)
[2022-01-03] MEDS: 0.9 % Sodium Chloride Flush 3 ML SYRINGE IVFLUSH (00:49)
--- NOTE | 2022-01-03 00:55 | PC.NURSE ---
report given to overflow rn
--- NOTE | 2022-01-03 01:20 | PC.NURSE ---
patient ambulated from stretcher to the bed with steady gait. given the call beverly and educated on use. verbalized understanding
[2022-01-03] MEDS: ondansetron HCL 4 MG/2 ML VIAL IVPUSH (01:55)
[2022-01-03] MEDS: Ketorolac Tromethamine 15 MG/ML VIAL IVPUSH ×3 (01:55→13:40)
[2022-01-03] MEDS: Levothyroxine Sodium 25 MCG TABLET PO (06:24)
[2022-01-03 07:00] LABS: Hematocrit 31.9 % (37.0-47.0); Hemoglobin 9.8 g/dl (12.0-16.0); Mean Corpuscular HGB Conc 30.7 g/dl (31.0-35.0); Mean Corpuscular Hemoglobin 21.5 pg (27.0-33.0); Mean Platelet Volume 10.4 fL (9.4-12.3); Platelet Count 270 X10*3/uL (160-400); Red Blood Count 4.56 X10*6/uL (4.20-5.50); Red Cell Distribution Width 15.5 % (11.0-16.0); White Blood Count 14.5 X10*3/uL (4.8-10.8)
[2022-01-03] MEDS: Multivitamin TABLET 1 TAB PO (07:49)
[2022-01-03] MEDS: lisinopriL 10 MG TABLET PO (07:49)
[2022-01-03 08:20] LABS: Anion Gap 10 (12-20); Blood Urea Nitrogen 14 mg/dL (9-16); Calcium 7.7 mg/dL (8.4-10.2); Carbon Dioxide 22 mmol/L (22-29); Chloride 110 mmol/L (96-108); Creatinine Clr Calc Pharmacy 68.8; Estimated Glomerular Filt Rate 57; Glucose Random 115 mg/dL (60-115); Potassium 3.9 mmol/L (3.3-5.1); Sodium 138 mmol/L (135-145)
[2022-01-03 09:57] LABS: UPreg QC Valid YES; Urine Pregnancy NEGATIVE (NEGATIVE)
--- NOTE | 2022-01-03 11:16 | PM.HPGS ---
History of Present Illness History of Present Illness Date of Service: 01/03/22 Chief complaint: Kidney stone Narrative: Ev Friedman is a 46-year-old female with a past pertinent medical history of PKD presents 01/02/22 to the emergency department for 2 days of left-sided flank pain.? Pain was initially colicky in nature and worsened and is now constant.? Patient describes this pain as a constant pain to the left flank area that does not radiate.? Her pain was an 8/10.? Has had associated nausea and vomiting, which occurs after she has the left sided flank pain.? Has had 2 similar episodes in the past but no confirmed nephrolithiasis.? Denies fevers, chills, shortness of breath, chest pain, dysuria, hematuria, nocturia, urinary incontinence, increased frequency of urination or diarrhea.? No recent sick contacts.? 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 CT reviewed: Pertinent findings: KIDNEYS AND URETERS: Polycystic Kidneys. There is mild to moderate left-sided hydroureteronephrosis is with a 5 mm calculus in the distal left ureter at about 3 cm proximal to the UVJ. There is mild asymmetric fat stranding around the left kidney and left ureter. No evidence of right hydroureteronephrosis. Review of Systems Review of Systems: 10 point ROS negative other than stated in HPI PMFSH Past Medical History Medical History Anemia Anxiety Family history of colon cancer HTN (hypertension) Hypothyroid Iron deficiency anemia Obesity (BMI 30-39.9) PKD (polycystic kidney disease) Vitamin D deficiency Family History Family History Mother Breast cancer Maternal Aunt Breast cancer IBS (irritable bowel syndrome) Maternal Aunt Breast cancer Family/Other Breast cancer Family/Other Breast cancer Sister Colon cancer Cervical cancer Maternal Uncle Heart attack Brother Diabetes Brother Diabetes Other Mental health problem Surgical History Surgical History No pertinent past surgical history Social History Social History Household Members: Family Housing: Apartment Are you a primary child care nurse to a significant other at home: No Do you presently have visiting nurse or other home services: No Alcohol intake: former Patient Tobacco Use Status: Never used Tobacco e-Cigarette/Vaping Use: Never Used Second Hand Smoke Exposure: No Advance Directives: No Advance Directives Information Provided: Yes service: No Current occupational status: employed Cognitive needs: No Hearing needs: No Vision needs: Yes Meds Allergies Allergy/AdvReac Type Severity Reaction Status Date / Time No Known Allergies Allergy Verified 12/09/21 12:50 Active Medications: Current Medications Hydrocortisone (Hydrocortisone 2.5 % Rectal Cr 30 Gm Tube) 1 appl [place] BID PRN PRN Reason: itching Hydromorphone HCl (Hydromorphone Hcl 0.5 Mg/0.5 Ml Syringe) 0.5 mg IVPUSH Q2H PRN; Protocol PRN Reason: Pain, Moderate (Pain Scale 4-6 Dextrose/Sodium Chloride (D5ns) 1,000 mls @ 100 mls/hr IVCONT .Q10H [facility] Last Admin: 01/02/22 22:53 Dose: 100 mls/hr Cefazolin Sodium/Dextrose (Ancef) 2 gm in 50 mls @ 100 mls/hr IV PREOP ONE Stop: 01/03/22 11:42 Ketorolac Tromethamine (Ketorolac Tromethamine 15 Mg/Ml Vial) 15 mg IVPUSH Q6H [facility] Last Admin: 01/03/22 06:24 Dose: 15 mg Levothyroxine Sodium (Levothyroxine Sodium 25 Mcg Tablet) 25 mcg PO DAILY@0600 [facility] Last Admin: 01/03/22 06:24 Dose: 25 mcg Lisinopril (Lisinopril 10 Mg Tablet) 10 mg PO DAILY [facility]; Protocol Last Admin: 01/03/22 07:49 Dose: 10 mg Multivitamins/Vitamin C (Multivitamin Tablet) 1 tab PO DAILY [facility] Last Admin: 01/03/22 07:49 Dose: 1 tab Ondansetron HCl (Ondansetron Hcl 4 Mg/2 Ml Vial) 4 mg IVPUSH Q4H PRN PRN Reason: Nausea Last Admin: 01/03/22 01:55 Dose: 4 mg Pharmacy Consult (Consult Rx Perform Med Rec) 1 each MISCELLANE ONCE PRN PRN Reason: Consult order Sodium Chloride (0.9 % Sodium Chloride Flush 3 Ml Syringe) 3 ml IVFLUSH QSHIFT [facility] Last Admin: 01/03/22 09:19 Dose: Not Given Home Medications Medication Instructions Recorded Confirmed Last Taken Type multivitamin 1 tab PO DAILY 03/30/20 01/02/22 01/02/22 History levothyroxine 25 mcg tablet 25 mcg PO DAILY@0600 01/02/22 01/02/22 01/02/22 History Physical Exam Vital Signs: Vital Signs: Last Vital Signs Temp 96.6 F L 01/03/22 08:00 Pulse 66 01/03/22 08:00 Resp 15 01/03/22 08:00 BP 118/70 01/03/22 08:00 Pulse Ox 97 01/03/22 08:00 O2 Del Method 01/03/22 08:00 BMI result Body Mass Index 33.6 Const: General: cooperative and no acute distress Orientation/consciousness: patient oriented x3 HEENT: Head: Yes normal to inspection, Yes normocephalic and Yes atraumatic Eyes: Conjunctivae: conjunctivae normal Neck: Neck: Yes normal visual inspection and Yes trachea midline Chest: Chest palpation & inspection: normal inspection of the chest Resp: Effort & Inspection: normal respiratory effort Cardio: Rate: regular rate GI: Inspection: Yes normal to inspection Palpation (GI): Soft to palpation : Other: the patient has received pain medication and currently no CVA or abdominal tenderness Skin: General skin exam: no rashes or lesions noted Neuro: General: patient oriented x3 Extrem: General: No edema Psych: Appearance: grossly normal Results Results Labs: Short CBC 01/02/22 01/03/22 Range/Units 18:02 06:04 WBC 15.1 H 14.5 H (4.8-10.8) X10*3/uL Hgb 10.7 L 9.8 L (12.0-16.0) g/dl Hct 34.6 L 31.9 L (37.0-47.0) % Plt Count 316 270 (160-400) X10*3/uL BMP 01/02/22 01/03/22 18:02 06:04 Sodium 138 138 Potassium 4.1 3.9 Chloride 107 110 H Carbon Dioxide 23 22 BUN 18 H 14 Creatinine 1.41 H 1.04 Calcium 8.9 7.7 L D Liver Function 01/02/22 Range/Units 18:02 Total Bilirubin 0.4 (0.0-1.0) mg/dL Direct Bilirubin 0.2 (0.0-0.5) mg/dL AST 16 (5-31) U/L ALT 20 (0-31) U/L Alkaline Phosphatase 76 (39-117) U/L Albumin 4.1 (3.5-5.0) g/dL Urine 01/02/22 01/03/22 Range/Units 18:02 09:20 Urine Color Yellow Urine Appearance Clear Urine pH 5.0 (5.0-9.0) Ur Specific [place] >= 1.030 H (1.005-1.025) Urine Protein Trace (Neg-Trace) mg/dL Urine Glucose (UA) Negative (Negative) mg/dL Urine Test NEGATIVE (NEGATIVE) Abdomen CT scan report/results: report reviewed and image reviewed CT scan - pelvis: report reviewed and image reviewed Additional studies: Date of Service: 01/02/22 EXAMINATION: CT ABDOMEN AND PELVIS WITHOUT CONTRAST? CLINICAL INFORMATION: Left flank pain and left lower quadrant pain.? COMPARISON: CT abdomen/pelvis 12/31/2020.? FINDINGS: LUNG BASES: No focal consolidation or pleural effusion.? LIVER, GALLBLADDER, AND BILIARY TREE: The liver measures 17.3 cm craniocaudally and demonstrates decreased parenchymal attenuation suggesting the presence of hepatic steatosis. No discrete focal liver lesions are noted in this limited noncontrast examination. Normal appearance of the gallbladder. No biliary ductal dilatation. PANCREAS: Limited noncontrast examination, unremarkable.? SPLEEN: Limited noncontrast examination, unremarkable.? ADRENAL GLANDS: No adrenal mass.? KIDNEYS AND URETERS: There is mild to moderate left-sided hydroureteronephrosis is with a 5 mm calculus in the distal left ureter at about 3 cm proximal to the UVJ. There is mild asymmetric fat stranding around the left kidney and left ureter. No evidence of right hydroureteronephrosis. There are innumerable cysts in both kidneys, some demonstrating thin peripheral calcifications. There are also scattered hyperattenuating observations, for instance measuring 0.8 cm in the lower left kidney (3:38), likely representing proteinaceous/hemorrhagic cyst although incompletely characterized in this limited noncontrast examination. There are scattered calcific densities in both kidneys that could represent calculi, medullary nephrocalcinosis or calcifications associated with the innumerable cysts.? BLADDER: Unremarkable.? GASTROINTESTINAL TRACT: The stomach and the small bowel are nondilated. Normal appendix. Mild diverticulosis without evidence of pericolonic inflammatory changes or bowel obstruction.? ABDOMINAL WALL: No significant hernia is appreciated.? LYMPH NODES: There are prominent but subcentimeter in short axis left-sided retroperitoneal and left-sided pelvic lymph nodes, possibly reactive. VASCULAR: The abdominal aorta is of normal diameter. PELVIC VISCERA: The endometrium is not well defined in the absence of IV contrast measuring approximately 0.8 cm in thickness. No pelvic mass.? OSSEOUS STRUCTURES: No acute or aggressive appearing osseous abnormalities. Degenerative changes of the spine.? IMPRESSION: 1.? Mild to moderate left-sided hydroureteronephrosis with a 5 mm calculus in the distal left ureter. 2.? There are innumerable cysts in both kidneys, some of which are hyperattenuating and likely represent proteinaceous/hemorrhagic cysts although incompletely characterized in this limited noncontrast examination. Recommend further evaluation with a nonemergent abdominal MRI with and without intravenous contrast, renal mass protocol. 3.? Prominent left-sided retroperitoneal and pelvic lymph nodes are likely reactive in the setting of hydronephrosis. Attention on follow-up in subsequent studies is recommended. 4.? Mild diverticulosis but no evidence of acute diverticulitis. 5.? Hepatic steatosis. 6.? The endometrium is not well defined in the absence of IV contrast but appears thickened for a postmenopausal patient. Recommend correlation with patient's menstrual history and if indicated, consider further evaluation with a dedicated pelvic ultrasound. ? Assessment and Plan (1) ZACHERY (acute kidney injury): Status: Acute (2) Obstructive uropathy: Status: Acute (3) PKD (polycystic kidney disease): Status: Acute (4) Ureteral stone: Status: Acute Plan IV fluid hydration. Plan for Cystoscopy, left ureteroscopy, possible laser lithotripsy, possible ureteral stent. Risks discussed included but not limited to, possible need to repeat procedure if stone is not completely fragmented, Irritative voiding symptoms, bladder spasms, urgency, blood in urine. Quality Stroke Does the patient have a stroke diagnosis?: No VTE Prior VTE?: No VTE Risk Level:: Surgical - low VTE Device Contraindication: Treatment Not Indicated VTE Drug Contraindication: Treatment Not Indicated Procedures Date of Service Date of Service: 01/02/22
[2022-01-03] MEDS: Dextrose 5 % and 0.9 % NaCl 1,000 ML 100 ML IVCONT (11:38)
--- NOTE | 2022-01-03 12:47 | MHC.CM.PN ---
Home, self care is the goal; CM has initiated and will follow for dc planning. PCP is Dr. Stanley Contreras.
[2022-01-03] MEDS: ceFAZolin Sodium/Dextrose,Iso 2 GM/50 ML PIGGYBACK IV (13:39)
--- NOTE | 2022-01-03 16:24 | P.CONAN_ITS ---
[facility] Active Problems Active Problems: All Active Problems (Updated 01/03/22 @ 11:26 by Court Gonzalez MD) Ureteral stone (Acute) PKD (polycystic kidney disease) (Acute) Obstructive uropathy (Acute) ZACHERY (acute kidney injury) (Acute) Family history of colon cancer (Acute) Hemorrhoids (Acute) Constipation (Acute) Colon cancer screening (Acute) COVID-19 virus infection (Acute) Anemia of chronic disease (Acute) Annual physical exam (Acute) Constipation (Acute) Anemia (Acute) Generalized anxiety disorder (Acute) RUQ abdominal pain (Acute) Abnormal mammogram of right breast (Acute) Hematuria (Acute) Hypercholesterolemia (Acute) Obesity (BMI 30-39.9) (Acute) Hypothyroid (Acute) HTN (hypertension) (Acute) Iron deficiency anemia (Acute) Past Medical History Medical History Anemia Anxiety Family history of colon cancer HTN (hypertension) Hypothyroid Iron deficiency anemia Obesity (BMI 30-39.9) PKD (polycystic kidney disease) Vitamin D deficiency Family History Family History Mother Breast cancer Maternal Aunt Breast cancer IBS (irritable bowel syndrome) Maternal Aunt Breast cancer Family/Other Breast cancer Family/Other Breast cancer Sister Colon cancer Cervical cancer Maternal Uncle Heart attack Brother Diabetes Brother Diabetes Other Mental health problem Family history of problems with anesthesia: No Surgical History Surgical History No pertinent past surgical history History of Problems with Anesthesia: No Social History Social History Household Members: Family Housing: Apartment Are you a primary hearing care professional to a significant other at home: No Do you presently have visiting nurse or other home services: No Alcohol intake: former Patient Tobacco Use Status: Never used Tobacco e-Cigarette/Vaping Use: Never Used Second Hand Smoke Exposure: No service: No Current occupational status: employed Cognitive needs: No Hearing needs: No Vision needs: Yes Meds Allergies Allergy/AdvReac Type Severity Reaction Status Date / Time No Known Allergies Allergy Verified 12/09/21 12:50 Active Medications: Current Medications Hydrocortisone (Hydrocortisone 2.5 % Rectal Cr 30 Gm Tube) 1 appl [place] BID PRN PRN Reason: itching Hydromorphone HCl (Hydromorphone Hcl 0.5 Mg/0.5 Ml Syringe) 0.5 mg IVPUSH Q2H PRN; Protocol PRN Reason: Pain, Moderate (Pain Scale 4-6 Dextrose/Sodium Chloride (D5ns) 1,000 mls @ 100 mls/hr IVCONT .Q10H [facility] Last Admin: 01/03/22 11:38 Dose: 100 mls/hr Ketorolac Tromethamine (Ketorolac Tromethamine 15 Mg/Ml Vial) 15 mg IVPUSH Q6H [facility] Last Admin: 01/03/22 13:40 Dose: 15 mg Levothyroxine Sodium (Levothyroxine Sodium 25 Mcg Tablet) 25 mcg PO DAILY@0600 [facility] Last Admin: 01/03/22 06:24 Dose: 25 mcg Lisinopril (Lisinopril 10 Mg Tablet) 10 mg PO DAILY [facility]; Protocol Last Admin: 01/03/22 07:49 Dose: 10 mg Multivitamins/Vitamin C (Multivitamin Tablet) 1 tab PO DAILY [facility] Last Admin: 01/03/22 07:49 Dose: 1 tab Ondansetron HCl (Ondansetron Hcl 4 Mg/2 Ml Vial) 4 mg IVPUSH Q4H PRN PRN Reason: Nausea Last Admin: 01/03/22 01:55 Dose: 4 mg Pharmacy Consult (Consult Rx Perform Med Rec) 1 each MISCELLANE ONCE PRN PRN Reason: Consult order Sodium Chloride (0.9 % Sodium Chloride Flush 3 Ml Syringe) 3 ml IVFLUSH QSHIFT [facility] Last Admin: 01/03/22 09:19 Dose: Not Given Home Medications Medication Instructions Recorded Confirmed Last Taken Type multivitamin 1 tab PO DAILY 03/30/20 01/02/22 01/02/22 History levothyroxine 25 mcg tablet 25 mcg PO DAILY@0600 01/02/22 01/02/22 01/02/22 History Exam Exam Date and Time: January 03, 2022 1624 Height,Weight and Vital Signs: Height 5 ft 3 in Weight 86.183 kg Last Vital Signs Temp 96.6 F L 01/03/22 08:00 Pulse 66 01/03/22 08:00 Resp 15 01/03/22 08:00 BP 118/70 01/03/22 08:00 Pulse Ox 97 01/03/22 08:00 O2 Del Method 01/03/22 08:00 Pertinent Lab Results Pertinent Lab Results: Laboratory Tests 01/02/22 01/02/22 01/02/22 18:02 18:02 18:02 WBC 15.1 H RBC 4.88 Hgb 10.7 L Hct 34.6 L MCV 70.9 L MCH 21.9 L MCHC 30.9 L RDW 15.4 Plt Count 316 MPV 11.0 Immature Gran % (Auto) 0.5 H Neut % (Auto) 85.6 H Lymph % (Auto) 7.1 L [place] % (Auto) 6.4 Eos % (Auto) 0.1 Baso % (Auto) 0.3 Lymph # (Auto) 1.1 L [place] # (Auto) 1.0 Eos # (Auto) 0.0 Baso # (Auto) 0.0 Abs Immat Gran (auto) 0.07 H Absolute Neuts (auto) 13.0 H Absolute Nucleated RBC 0.000 Nucleated RBC % (auto) 0.0 Sodium 138 Potassium 4.1 Chloride 107 Carbon Dioxide 23 Anion Gap 12 BUN 18 H Creatinine 1.41 H Estim Creat Clear Calc 50.7 Estimated GFR 40 Random Glucose 122 H Lactic Acid Calcium 8.9 Total Bilirubin 0.4 Direct Bilirubin 0.2 AST 16 ALT 20 Alkaline Phosphatase 76 Total Protein 7.1 Albumin 4.1 Lipase 38 Urine Color Yellow Urine Appearance Clear Urine pH 5.0 Ur Specific [place] >= 1.030 H Urine Protein Trace Urine Glucose (UA) Negative Urine Ketones Negative Urine Blood Trace Urine Nitrite Negative Ur Leukocyte Esterase Negative Urine RBC 0-2 Urine WBC 0-5 Ur Squamous Epith Cells 3-5 Urine Bacteria None Seen Hyaline Casts 0-2 Urine Test COVID-19 ([facility]) COVID-19 Clin Com 01/02/22 01/02/22 01/03/22 19:35 19:35 06:04 WBC 14.5 H RBC 4.56 Hgb 9.8 L Hct 31.9 L MCV 70.0 L MCH 21.5 L MCHC 30.7 L RDW 15.5 Plt Count 270 MPV 10.4 Immature Gran % (Auto) Neut % (Auto) Lymph % (Auto) [place] % (Auto) Eos % (Auto) Baso % (Auto) Lymph # (Auto) [place] # (Auto) Eos # (Auto) Baso # (Auto) Abs Immat Gran (auto) Absolute Neuts (auto) Absolute Nucleated RBC 0.000 Nucleated RBC % (auto) 0.0 Sodium Potassium Chloride Carbon Dioxide Anion Gap BUN Creatinine Estim Creat Clear Calc Estimated GFR Random Glucose Lactic Acid 0.5 Calcium Total Bilirubin Direct Bilirubin AST ALT Alkaline Phosphatase Total Protein Albumin Lipase Urine Color Urine Appearance Urine pH Ur Specific [place] Urine Protein Urine Glucose (UA) Urine Ketones Urine Blood Urine Nitrite Ur Leukocyte Esterase Urine RBC Urine WBC Ur Squamous Epith Cells Urine Bacteria Hyaline Casts Urine Test COVID-19 ([facility]) Negative COVID-19 Clin Com See Note 01/03/22 01/03/22 06:04 09:20 WBC RBC Hgb Hct MCV MCH MCHC RDW Plt Count MPV Immature Gran % (Auto) Neut % (Auto) Lymph % (Auto) [place] % (Auto) Eos % (Auto) Baso % (Auto) Lymph # (Auto) [place] # (Auto) Eos # (Auto) Baso # (Auto) Abs Immat Gran (auto) Absolute Neuts (auto) Absolute Nucleated RBC Nucleated RBC % (auto) Sodium 138 Potassium 3.9 Chloride 110 H Carbon Dioxide 22 Anion Gap 10 L BUN 14 Creatinine 1.04 Estim Creat Clear Calc 68.8 Estimated GFR 57 Random Glucose 115 Lactic Acid Calcium 7.7 L D Total Bilirubin Direct Bilirubin AST ALT Alkaline Phosphatase Total Protein Albumin Lipase Urine Color Urine Appearance Urine pH Ur Specific [place] Urine Protein Urine Glucose (UA) Urine Ketones Urine Blood Urine Nitrite Ur Leukocyte Esterase Urine RBC Urine WBC Ur Squamous Epith Cells Urine Bacteria Hyaline Casts Urine Test NEGATIVE COVID-19 ([facility]) COVID-19 Clin Com Airway Mallampati Class: II TM Dist: >3cm Neck ROM: Full Heart: rrr Lungs: cta Assessment and Plan Assessment Anesthesia Assessment: Anesthesia Plan Discussed and Chart Reviewed Final Anesthetic Review Family History of Problems with Anesthesia: No History of Problems with Anesthesia: No NPO: Yes ASA Class: III Final Preanesthetic Review: No Changes in Pt Med Stat, Meds/Allgs Chart Reviewed and Consent Obtained/Reviewed Patient Risk: Intermediate Procedure Risk: Intermediate Anesthetic Plan Anesthetic Plan: GA Disposition: Standard PACU
--- NOTE | 2022-01-03 16:40 | P.HPSUR_ITS ---
Pre-Procedural Eval Section A Date of Service: 01/03/22 The patient is an INPATIENT: Yes Section B Chief Complaint: Kidney stone Allergies: Allergies Allergy/AdvReac Type Severity Reaction Status Date / Time No Known Allergies Allergy Verified 12/09/21 12:50 Plan I have reviewed the history and physical and performed a pertinent physical examination on my patient. No changes have occurred unless specified. Plan for Cystoscopy, left ureteroscopy, possible laser lithotripsy, possible ureteral stent. Risks discussed included but not limited to, possible need to r epeat procedure if stone is not completely fragmented, Irritative voiding symptoms, bladder spasms, urgency, blood in urine.
--- NOTE | 2022-01-03 17:47 | P.OP_ITS ---
Operative Note Operative Note Date of Service: 01/03/22 Narrative: PreOperative Diagnosis:?? Left ureteral stone Post Operative Diagnosis:?? Left ureteral stone Procedure: - cystoscopy, left retrograde, left ureteroscopy stone extraction, stent insertion, 6 [place] by 24 cm Surgeon:?Dr Court Gonzalez Anesthesia:? General Indications for procedure: 46-year-old female with a past pertinent medical history of PKD presents for 2 days of left-sided flank pain.? CT reviewed: Pertinent findings:??KIDNEYS AND URETERS: Polycystic Kidneys.? There is mild to moderate left-sided hydroureteronephrosis is with a 5 mm calculus in the distal left ureter at about 3 cm proximal to the UVJ. There is mild asymmetric fat stranding around the left kidney and left ureter. No evidence of right hydroureteronephrosis. Procedure: After informed consent was verified the patient was brought to the operating placed on the OR table in supine position.? General Anesthesia was administered per protocol.? The patient was placed in lithotomy position, prepped and draped in the usual sterile fashion.? Safety pause time-out and side of surgery confirmed.? Antibiotics confirmed. 2% lidocaine jelly 10 mL was passed transurethrally. A 22 [place] cystoscope was inserted transurethrally. The bladder was visualized.? Both ureteric orifices were in normal position. The left ureteral orifice was edematous. An open-ended ureteral catheter was passed into the Left ureteral orifice and a retrograde examination was performed. There was a filling defect in the distal ureter and dilatation of the proximal ureter. A guidewire was passed through the ureteral catheter into the kidney. The balloon dilator was passed over the guidewire and the left intramural ureter was dilated for 60 seconds. A 2nd guidewire was then passed into the kidney to use as a safety. The cystoscope was removed, leaving both guidewires in place. One guidewire was used as the safety and was attached to the draping. The semi rigid ureteroscope was passed over one of the guidewires to the level of the stone in the ureter. One guidewire was then removed. The basket was passed through the ureteroscope, The stone was basketed and removed to send for analysis. The ureteroscope was removed. The cystoscope was passed over the safety guidewire. A? 6 [place] by 24 cm stent was placed into the ureter and renal pelvis under a combination of fluoroscopy and direct visualization. The bladder was emptied.? The rigid cystoscope was removed. 2% lidocaine jelly was passed transurethrally, the dangler/string was left attached to the stent and taped lateral to the labia.? The patient tolerated the procedure well and was brought to the recovery room in stable condition. Complications: None Drains: Ureteral stent as dictated above.
[2022-01-13 16:26] LABS: Stone Source URETERAL STONE
--- NOTE | 2022-05-13 13:09 | P.DS_ITS ---
DS: Providers Provider Date of Service: 01/03/22 Date of discharge: 01/03/22 Primary care physician: Stanley Contreras MD Admitting clinician: Court Gonzalez Attending physician on admission: Court Gonzalez Attending physician on discharge: Cuort Gonzalez Discharging clinician: Court Gonzalez DS: Diagnosis Discharge Diagnosis (1) Ureteral stone: Status: Acute (2) PKD (polycystic kidney disease): Status: Acute (3) Hydronephrosis: Status: Acute DS: Summary Hospital Course Hospital Course: 46-year-old female with a past pertinent medical history of PKD presents? for 2 days of left-sided flank pain.? CT reviewed: Pertinent findings:??KIDNEYS AND URETERS: Polycystic Kidneys.? There is mild to moderate left-sided hydroureteronephrosis is with a 5 mm calculus in the distal left ureter at about 3 cm proximal to the UVJ. There is mild asymmetric fat stranding around the left kidney and left ureter. No evidence of right hydroureteronephrosis. S/P Left ureteroscopy stone extraction, and ureteral stent on 01/03/22. The patient was stable after procedure and discharged with outpatient follow up with Urology scheduled. Status at Discharge Overall status at discharge: patient is back to baseline Time Spent with Patient Time attestation: Total time managing care of this patient today ____ minutes. Discharge coordination time: Less than 30 minutes Quality: Safe Use of Opioids Does Pt have an Active Cancer Diagnosis on the Problem List?: No Quality: Stroke Does the patient have a stroke diagnosis?: No DS: Data Data Completed and Pending Completed studies during hospitalization [Text1]: Procedures Dilation of Left Ureter with Intraluminal Device, Via Natural or Artificial Opening Endoscopic (01/02/22) Extirpation of Matter from Left Ureter, Via Natural or Artificial Opening Endoscopic (01/02/22) Fluoroscopy of Left Kidney, Ureter and Bladder using Low Osmolar Contrast (01/02/22) Discharge Plan Discharge Anticipated Discharge Date/Time: 01/06/22 11:10 Attending physician on admission: Court Gonzalez Primary Care Provider: Stanley Contreras Patient Disposition: Home, Self-Care Referrals: Stanley Contreras MD [Primary Care Provider] - 1 Week Discharge Medications: Continued lisinopril 10 mg tablet 10 mg PO DAILY Qty: 90 2RF levothyroxine 25 mcg tablet 25 mcg PO DAILY@0600 multivitamin Tablet 1 tab PO DAILY (DME) blood pressure monitor [Blood Pressure Kit] Kit See Rx Instructions .ROUTE .MEDSUPPLY Qty: 1 0RF Rx Instructions: As directed meclizine 25 mg tablet 25 mg PO BID PRN (Reason: dizziness) Qty: 30 3RF hydrocortisone [Proctosol HC] 2.5 % cream with perineal applicator 1 appl AR BID PRN (Reason: itching) Qty: 30 0RF Diet: Advance to usual diet Activity on Discharge: As tolerated Hospital Course: 46-year-old female with a past pertinent medical history of PKD presents? for 2 days of left-sided flank pain.? CT reviewed: Pertinent findings:??KIDNEYS AND URETERS: Polycystic Kidneys.? There is mild to moderate left-sided hydroureteronephrosis is with a 5 mm calculus in the distal left ureter at about 3 cm proximal to the UVJ. There is mild asymmetric fat stranding around the left kidney and left ureter. No evidence of right hydroureteronephrosis. S/P Left ureteroscopy stone extraction, and ureteral stent on 01/03/22. The patient was stable after procedure and discharged with outpatient follow up with Urology scheduled.
== END 2022-01-03 18:26 | disposition home or self-care (01) | DRG 446 ==
LOC: HO.ED 19:32 → HO.EDOVER 21:41
PROVIDERS: Physician Assistant; Admitting Provider Urology; Emergency Provider Emergency Medicine; PCP Internal Medicine; Visit Provider Urology
PROC: 0TC78ZZ Extirpation of Matter from Left Ureter, Via Natural or Artificial Opening Endoscopic (ICD-10-PCS; principal; 2022-01-03 17:00)
DX: N13.2 Hydronephrosis with renal and ureteral calculous obstruction (principal); N17.9 Acute kidney failure, unspecified; Q61.3 Polycystic kidney, unspecified; F41.9 Anxiety disorder, unspecified; E03.9 Hypothyroidism, unspecified; Z20.822 Contact with and (suspected) exposure to COVID-19; Z79.890 Hormone replacement therapy; Z79.899 Other long term (current) drug therapy
CPT/HCPCS: 36415; 74176; 80048; 80076; 81001; 81025; 82365; 83605; 83690; 85025; 85027; 87040; 87635; 88300; 99285; C1726; C1758; C1769; C2617; J0690; J0696; J1100; J1170; J1885; J2250; J2270; J2405; J3010

== ENCOUNTER → 2022-01-02 21:31 | Outpatient (BNV) | payer OTHER, SELFPAY | PROVIDERS: Admitting Provider Urology; Emergency Provider Emergency Medicine; PCP Internal Medicine; Visit Provider Urology | DX: N20.1 Calculus of ureter (principal); Q61.3 Polycystic kidney, unspecified; N13.30 Unspecified hydronephrosis | CPT/HCPCS: 99238 ==

== ENCOUNTER → 2022-01-06 11:10 | Outpatient (BNVA) | payer OTHER, SELFPAY ==
--- NOTE | 2022-05-13 13:09 | PM.DS ---
DS: Providers Provider Date of Service: 01/03/22 Date of discharge: 01/03/22 Primary care physician: Stanley Contreras MD Admitting clinician: Court Gonzalez Attending physician on admission: Court Gonzalez Attending physician on discharge: Court Gonzalez Discharging clinician: Court Gonzalez DS: Diagnosis Discharge Diagnosis (1) Ureteral stone: Status: Acute (2) PKD (polycystic kidney disease): Status: Acute (3) Hydronephrosis: Status: Acute DS: Summary Hospital Course Hospital Course: 46-year-old female with a past pertinent medical history of PKD presents? for 2 days of left-sided flank pain.? CT reviewed: Pertinent findings:??KIDNEYS AND URETERS: Polycystic Kidneys.? There is mild to moderate left-sided hydroureteronephrosis is with a 5 mm calculus in the distal left ureter at about 3 cm proximal to the UVJ. There is mild asymmetric fat stranding around the left kidney and left ureter. No evidence of right hydroureteronephrosis. S/P Left ureteroscopy stone extraction, and ureteral stent on 01/03/22. The patient was stable after procedure and discharged with outpatient follow up with Urology scheduled. Status at Discharge Overall status at discharge: patient is back to baseline Time Spent with Patient Time attestation: Total time managing care of this patient today ____ minutes. Discharge coordination time: Less than 30 minutes Quality: Safe Use of Opioids Does Pt have an Active Cancer Diagnosis on the Problem List?: No Quality: Stroke Does the patient have a stroke diagnosis?: No DS: Data Data Completed and Pending Completed studies during hospitalization [Text1]: Procedures Dilation of Left Ureter with Intraluminal Device, Via Natural or Artificial Opening Endoscopic (01/02/22) Extirpation of Matter from Left Ureter, Via Natural or Artificial Opening Endoscopic (01/02/22) Fluoroscopy of Left Kidney, Ureter and Bladder using Low Osmolar Contrast (01/02/22) Discharge Plan Discharge Anticipated Discharge Date/Time: 01/06/22 11:10 Attending physician on admission: Court Gonzalez Primary Care Provider: Stanley Contreras Patient Disposition: Home, Self-Care Referrals: Stanley Contreras MD [Primary Care Provider] - 1 Week Discharge Medications: Continued lisinopril 10 mg tablet 10 mg PO DAILY Qty: 90 2RF levothyroxine 25 mcg tablet 25 mcg PO DAILY@0600 multivitamin Tablet 1 tab PO DAILY (DME) blood pressure monitor [Blood Pressure Kit] Kit See Rx Instructions .ROUTE .MEDSUPPLY Qty: 1 0RF Rx Instructions: As directed meclizine 25 mg tablet 25 mg PO BID PRN (Reason: dizziness) Qty: 30 3RF hydrocortisone [Proctosol HC] 2.5 % cream with perineal applicator 1 appl [place] BID PRN (Reason: itching) Qty: 30 0RF Diet: Advance to usual diet Activity on Discharge: As tolerated Hospital Course: 46-year-old female with a past pertinent medical history of PKD presents? for 2 days of left-sided flank pain.? CT reviewed: Pertinent findings:??KIDNEYS AND URETERS: Polycystic Kidneys.? There is mild to moderate left-sided hydroureteronephrosis is with a 5 mm calculus in the distal left ureter at about 3 cm proximal to the UVJ. There is mild asymmetric fat stranding around the left kidney and left ureter. No evidence of right hydroureteronephrosis. S/P Left ureteroscopy stone extraction, and ureteral stent on 01/03/22. The patient was stable after procedure and discharged with outpatient follow up with Urology scheduled.
== END ==
PROVIDERS: PCP Internal Medicine; Visit Provider Urology
DX: N20.1 Calculus of ureter (principal)
CPT/HCPCS: 52310; 99238

== ENCOUNTER 2022-01-12 08:00 | Emergency (ER) | payer OTHER, SELFPAY ==
[2022-01-12 08:19] VITALS: BP 117/71; PULSE 71; RESP 17; TEMP 35.3; O2SAT 99
[2022-01-12 08:35] LABS: MANUAL DIFF FLAG NO
[2022-01-12 08:38] LABS: Basophils Percent Auto 0.4 % (0-2); Eosinophils Percent Auto 0.3 % (0-4); Hematocrit 37.5 % (37.0-47.0); Hemoglobin 11.6 g/dl (12.0-16.0); Imm Gran Abs Auto 0.03 X10*3/uL (0.00-0.03); Imm Gran Pct Auto 0.4 % (0.0-0.4); Lymphocytes Percent Auto 12.3 % (20-40); Mean Corpuscular HGB Conc 30.9 g/dl (31.0-35.0); Mean Corpuscular Hemoglobin 22.1 pg (27.0-33.0); Mean Corpuscular Volume 71.3 fL (80.0-98.0); Mean Platelet Volume 9.5 fL (9.4-12.3); Monocytes Absolute Auto 0.2 X10*3/uL (0.1-1.2); Monocytes Percent Auto 3.1 % (2-11); Neutrophils Absolute Auto 6.5 x10*3/uL (2.0-8.3); Neutrophils Percent Auto 83.5 % (45-73); Platelet Count 388 X10*3/uL (160-400); Red Blood Count 5.26 X10*6/uL (4.20-5.50); Red Cell Distribution Width 15.1 % (11.0-16.0); White Blood Count 7.8 X10*3/uL (4.8-10.8)
[2022-01-12 08:50] LABS: Anion Gap 14 (12-20); Blood Urea Nitrogen 16 mg/dL (9-16); Calcium 9.4 mg/dL (8.4-10.2); Carbon Dioxide 25 mmol/L (22-29); Chloride 103 mmol/L (96-108); Creatinine Clr Calc Pharmacy 118.4; Estimated Glomerular Filt Rate > 60; Glucose Random 130 mg/dL (60-115); Potassium 4.3 mmol/L (3.3-5.1); Sodium 138 mmol/L (135-145)
[2022-01-12 09:07] LABS: COVID-19 Test Negative (Negative); IDNOW Serial# 16C4AD1C
--- NOTE | 2022-01-12 11:28 | ED.DIZZY ---
HPI - Dizziness General Chief Complaint: Dizziness Stated Complaint: vertigo spell Time Seen by Provider: 01/12/22 11:09 Source: patient Mode of arrival: ambulatory Limitations: no limitations History of Present Illness HPI Narrative: 46-year-old female came in for evaluation of feeling dizzy since this morning. Patient describing dizziness as room spinning around her started this morning associated with mild nausea but no vomiting symptoms is worsening if she moves her head from right to left or left to right, no ear problems, patient had similar symptoms in the past and was prescribed meclizine by her PCP patient ran out of meclizine here today for prescription for meclizine. Patient has no neurological deficit otherwise, able to ambulate steady in the emergency department. Related Data Home Medications Medication Instructions Recorded Confirmed multivitamin 1 tab PO DAILY 03/30/20 01/06/22 levothyroxine 25 mcg tablet 25 mcg PO DAILY@0600 01/02/22 01/06/22 Previous Rx's Medication Instructions Recorded hydrocortisone 2.5 % topical cream [address] BID PRN itching #30 grams 08/01/21 with perineal applicator (Proctosol HC) meclizine 25 mg tablet 25 mg PO Q8H PRN nausea #20 tabs 09/26/21 lisinopril 10 mg tablet 10 mg PO DAILY #90 tabs 09/30/21 cephalexin 500 mg capsule 500 mg PO BID 7 days #14 caps 01/03/22 meclizine 25 mg tablet 25 mg PO BID PRN dizziness #30 tabs 01/12/22 Allergies Allergy/AdvReac Type Severity Reaction Status Date / Time No Known Allergies Allergy Verified 01/06/22 11:50 Review of Systems Review of Systems: All other systems are reviewed and are negative Constitutional: Reports as per HPI and Reports no additional constitutional complaints Eyes: Reports as per HPI and Reports no additional eye complaints Reports system reviewed and no additional complaints, except as documented Cardiovascular: Reports as per HPI and Reports no additional cardiovascular complaints Respiratory: Reports as per HPI and Reports no additional respiratory complaints Gastrointestinal: Reports as per HPI and Reports no additional gastrointestinal complaints Genitourinary: Reports no additional female genitourinary complaints Musculoskeletal: Reports no additional musculoskeletal complaints Skin/Breast: Reports system reviewed and no additional complaints, except as docu Psychiatric: Reports no additional psychiatric complaints Endocrine: Reports no additional endocrine complaints Hematologic/Lymphatic: Reports no additional hematologic/lymphatic complaints Allergic/Immunologic: Reports no additional allergic/immunologic complaints Reports system reviewed and no additional complaints, except as documented and Reports Abnormal speech present [facility] Past Medical History Medical History Anemia Anxiety Family history of colon cancer HTN (hypertension) Hypothyroid Iron deficiency anemia Obesity (BMI 30-39.9) PKD (polycystic kidney disease) Vitamin D deficiency Surgical History No pertinent past surgical history Family History Family History Mother Breast cancer Maternal Aunt Breast cancer IBS (irritable bowel syndrome) Maternal Aunt Breast cancer Family/Other Breast cancer Family/Other Breast cancer Sister Colon cancer Cervical cancer Maternal Uncle Heart attack Brother Diabetes Brother Diabetes Other Mental health problem Social History Social History Household Members: Family Housing: Apartment Are you a primary home care coordinator to a significant other at home: No Do you presently have visiting nurse or other home services: No Alcohol intake: former Patient Tobacco Use Status: Never used Tobacco e-Cigarette/Vaping Use: Never Used Second Hand Smoke Exposure: No Advance Directives: No Advance Directives Information Provided: No service: No Current occupational status: employed Cognitive needs: No Hearing needs: No Vision needs: Yes Physical Exam Vital Signs: Vital Signs: Last Vital Signs Temp 95.6 F L 01/12/22 08:19 Pulse 71 01/12/22 08:19 Resp 17 01/12/22 08:19 BP 117/71 01/12/22 08:19 Pulse Ox 99 01/12/22 08:19 O2 Del Method 01/12/22 08:19 BMI result Body Mass Index 0.3 Vital signs have been reviewed as appeared to be correct. Blood pressure normal. Heart rate normal. Respiration rate normal. Temperature normal. Oxygen saturation normal. Appearance: Alert. Oriented X3. No acute distress. Head: Normal external exam. Normocephalic. Atraumatic. No Recio signs noted. No raccoon eyes noted Eyes: PERRLA. EOMI. Conjunctiva and sclera normal. Eyelids normal. ENT: TM's Normal. Pharynx normal. Uvula midline. Moist mucous membranes. No trismus noted. No drooling noted. No muffled voice noted. Neck: Normal inspection. Neck supple. FROM. No adenopathy. Thyroid Normal. No meningeal signs. No neck mass noted. CVS: Normal heart rate and rhythm. Heart sound normal. No murmurs noted. Pulses normal throughout. Respiratory: No respiratory distress. Painless inspiration. Breath sounds normal. No wheezes/rales/rhonchi noted. Chest nontender. No accessory muscle usage noted or decreased air movement noted. Abdomen: Soft and nontender. Bowel sounds normal in all 4 quadrants. No distention noted. No organomegaly noted. No visible injury noted. Back: No CVA tenderness. Full range of motion noted. Skin: Skin warm and dry. Normal skin color. Normal skin turgor. No rashes/lesions/lacerations noted. Extremities: No lower extremity edema. Extremities exhibit normal range of motion. Extremities nontender. Neuro: Oriented X 3. Cranial nerve exam: II-XII are grossly intact No motor deficit. No sensory deficit. Reflexes normal. NIH Stroke Scale Time: 11:30 Level of Consciousness: Alert Level of Consciousness Questions: Answers both questions correctly Level of Consciousness Commands: Performs both tasks correctly Best Gaze: Normal Visual: No visual loss Facial Palsy: Normal Motor Arm (Right): No drift Motor Arm (Left): No drift Motor Leg (Right): No drift Motor Leg (Left): No drift Limb Ataxia: Absent Sensory: Normal Best Language: No aphasia Dysarthia: Normal Extinction and Inattention: No abnormality Score: 0 Course Course Course Narrative: 46-year-old female presented with paroxysmal benign vertigo patient had in the past required meclizine by her PCP return because ran out of meclizine, patient has a normal neuro exam with unremarkable exam otherwise. [facility] - Dizziness Medical Records Attestation: I reviewed the patient's medical records. Lab Data Attestation: I reviewed the patient's lab results. Result diagrams: 01/12/22 08:30 01/12/22 08:30 Labs: Lab Results 01/12/22 01/12/22 01/12/22 Range/Units 08:30 08:30 08:30 WBC 7.8 (4.8-10.8) X10*3/uL RBC 5.26 (4.20-5.50) X10*6/uL Hgb 11.6 L (12.0-16.0) g/dl Hct 37.5 (37.0-47.0) % MCV 71.3 L (80.0-98.0) fL MCH 22.1 L (27.0-33.0) pg MCHC 30.9 L (31.0-35.0) g/dl RDW 15.1 (11.0-16.0) % Plt Count 388 D (160-400) X10*3/uL MPV 9.5 (9.4-12.3) fL Immature Gran % (Auto) 0.4 (0.0-0.4) % Neut % (Auto) 83.5 H (45-73) % Lymph % (Auto) 12.3 L (20-40) % Roane % (Auto) 3.1 (2-11) % Eos % (Auto) 0.3 (0-4) % Baso % (Auto) 0.4 (0-2) % Lymph # (Auto) 1.0 L (1.2-4.9) X10*3/uL Roane # (Auto) 0.2 (0.1-1.2) X10*3/uL Eos # (Auto) 0.0 (0.0-0.4) X10*3/uL Baso # (Auto) 0.0 (0.0-0.2) X10*3/uL Abs Immat Gran (auto) 0.03 (0.00-0.03) X10*3/uL Absolute Neuts (auto) 6.5 (2.0-8.3) x10*3/uL Absolute Nucleated RBC 0.000 (0.0-0.012) X10*3/uL Nucleated RBC % (auto) 0.0 (0.0-0.2) /100WBC Sodium 138 (135-145) mmol/L Potassium 4.3 (3.3-5.1) mmol/L Chloride 103 (96-108) mmol/L Carbon Dioxide 25 (22-29) mmol/L Anion Gap 14 (12-20) BUN 16 (9-16) mg/dL Creatinine 0.79 (0.5-1.4) mg/dL Estim Creat Clear Calc 118.4 Estimated GFR > 60 Random Glucose 130 H (60-115) mg/dL Calcium 9.4 D (8.4-10.2) mg/dL COVID-19 (LILLY) Negative (Negative) COVID-19 Clin Com See Note Discharge Plan Discharge Clinical Impression: Benign paroxysmal positional vertigo Patient Disposition: Home, Self-Care Instructions: Benign Paroxysmal Positional Vertigo (ED) Prescriptions: New meclizine 25 mg tablet 25 mg PO BID PRN (Reason: dizziness) Qty: 30 0RF No Action meclizine 25 mg tablet 25 mg PO Q8H PRN (Reason: nausea) Qty: 20 0RF lisinopril 10 mg tablet 10 mg PO DAILY Qty: 90 2RF levothyroxine 25 mcg tablet 25 mcg PO DAILY@0600 cephalexin 500 mg capsule 500 mg PO BID 7 Days Qty: 14 0RF multivitamin Tablet 1 tab PO DAILY hydrocortisone [Proctosol HC] 2.5 % cream with perineal applicator [address] BID PRN (Reason: itching) Qty: 30 0RF Referrals: Po,Stanley Montes MD [Primary Care Provider] -
== END 2022-01-12 11:42 | disposition home or self-care (01) ==
PROVIDERS: Emergency Provider Emergency Medicine; PCP Internal Medicine
DX: H81.13 Benign paroxysmal vertigo, bilateral (principal); Z20.822 Contact with and (suspected) exposure to COVID-19; Z79.899 Other long term (current) drug therapy
CPT/HCPCS: 36415; 80048; 85025; 87635; 99282; 99283

== ENCOUNTER → 2022-01-17 07:41 | Day surgery (SDC) | payer OTHER, SELFPAY ==
[2022-01-14 11:57] VITALS: BMI 34.2
--- NOTE | 2022-01-16 11:49 | P.CONAN_ITS ---
Documented by User: Karen Rea NP 01/16/22 11:50 HPI - Anesthesia Eval Consult details Narrative: 46yo F for Colonoscopy s/p cysto, etc 12/2021 with GA-LMA 4 PMFSH Active Problems Active Problems: All Active Problems (Updated 01/14/22 @ 10:36 by Jeff Em MD) Iron deficiency anemia (Acute) Hypercholesterolemia (Acute) Hematuria (Acute) Abnormal mammogram of right breast (Acute) RUQ abdominal pain (Acute) Generalized anxiety disorder (Acute) Constipation (Acute) Annual physical exam (Acute) Anemia of chronic disease (Acute) COVID-19 virus infection (Acute) Colon cancer screening (Acute) Constipation (Acute) Hemorrhoids (Acute) PKD (polycystic kidney disease) (Acute) Ureteral stone (Acute) Family history of colon cancer (Acute) Anemia (Acute) Obesity (BMI 30-39.9) (Acute) Hypothyroid (Acute) HTN (hypertension) (Acute) Past Medical History Medical History (Updated 01/17/22 @ 07:56 by Miladis Alarcon RN) Anemia Anxiety Family history of colon cancer History of kidney stones HTN (hypertension) Hypothyroid Iron deficiency anemia Obesity (BMI 30-39.9) PKD (polycystic kidney disease) Vertigo Vitamin D deficiency Family History Family History Mother Breast cancer Maternal Aunt Breast cancer IBS (irritable bowel syndrome) Maternal Aunt Breast cancer Family/Other Breast cancer Family/Other Breast cancer Sister Colon cancer Cervical cancer Maternal Uncle Heart attack Brother Diabetes Brother Diabetes Other Mental health problem Family history of problems with anesthesia: No Surgical History Surgical History (Updated 01/17/22 @ 07:58 by Miladis Alarcon RN) Hx of colonoscopy Hx of cystoscopy No pertinent past surgical history History of Problems with Anesthesia: No Social History Social History (Updated 01/14/22 @ 10:31 by Gina Saini CMA) Household Members: Family Household Members Other:: brother Housing: Apartment Are you a primary progressive care manager to a significant other at home: No Do you presently have visiting nurse or other home services: No Alcohol intake: former Patient Tobacco Use Status: Never used Tobacco e-Cigarette/Vaping Use: Never Used Second Hand Smoke Exposure: No Use of substances other than those prescribed or required for medical reasons: No Are you DNR?: No Advance Directives: No Advance Directives Information Provided: Yes service: No Current occupational status: employed Cognitive needs: No Hearing needs: No Vision needs: Yes Meds Allergies Allergy/AdvReac Type Severity Reaction Status Date / Time No Known Allergies Allergy Verified 01/14/22 13:41 Home Medications Medication Instructions Recorded Confirmed Last Taken Type multivitamin 1 tab PO DAILY 03/30/20 01/17/22 01/02/22 History levothyroxine 25 mcg tablet 25 mcg PO DAILY@0600 01/02/22 01/17/22 01/17/22 06:00 History Exam Exam Date and Time: January 16, 2022 1149 Height,Weight and Vital Signs: Height 5 ft 3 in Weight 87.543 kg Pertinent Lab Results Pertinent Lab Results: Laboratory Tests 01/14/22 01/14/22 10:26 10:26 WBC 5.9 Hgb 11.5 L Hct 37.0 Plt Count 364 Sodium 139 Potassium 4.0 Chloride 105 Carbon Dioxide 24 BUN 15 Creatinine 0.94 Assessment and Plan Assessment Anesthesia Assessment: Chart Reviewed Final Anesthetic Review Family History of Problems with Anesthesia: No History of Problems with Anesthesia: No Documented by User: Vaughn Albarran MD 01/17/22 10:32 [facility] Past Medical History Medical History (Updated 01/17/22 @ 07:56 by Miladis Alarcon RN) Anemia Anxiety Family history of colon cancer History of kidney stones HTN (hypertension) Hypothyroid Iron deficiency anemia Obesity (BMI 30-39.9) PKD (polycystic kidney disease) Vertigo Vitamin D deficiency Functional capacity: independent ambulation Family History Family History Mother Breast cancer Maternal Aunt Breast cancer IBS (irritable bowel syndrome) Maternal Aunt Breast cancer Family/Other Breast cancer Family/Other Breast cancer Sister Colon cancer Cervical cancer Maternal Uncle Heart attack Brother Diabetes Brother Diabetes Other Mental health problem Surgical History Surgical History (Updated 01/17/22 @ 07:58 by Miladis Alarcon RN) Hx of colonoscopy Hx of cystoscopy No pertinent past surgical history Social History Social History (Updated 01/14/22 @ 10:31 by Gina Saini CMA) Household Members: Family Household Members Other:: brother Housing: Apartment Are you a primary progressive care manager to a significant other at home: No Do you presently have visiting nurse or other home services: No Alcohol intake: former Patient Tobacco Use Status: Never used Tobacco e-Cigarette/Vaping Use: Never Used Second Hand Smoke Exposure: No Use of substances other than those prescribed or required for medical reasons: No Are you DNR?: No Advance Directives: No Advance Directives Information Provided: Yes service: No Current occupational status: employed Cognitive needs: No Hearing needs: No Vision needs: Yes Meds Allergies Allergy/AdvReac Type Severity Reaction Status Date / Time No Known Allergies Allergy Verified 01/14/22 13:41 Home Medications Medication Instructions Recorded Confirmed Last Taken Type multivitamin 1 tab PO DAILY 03/30/20 01/17/22 01/02/22 History levothyroxine 25 mcg tablet 25 mcg PO DAILY@0600 01/02/22 01/17/22 01/17/22 06:00 History Exam Airway Mallampati Class: IV TM Dist: >3cm Neck ROM: Full Loose/Missing/Broken Teeth: Yes Heart: S1,S2 Lungs: b/l breath sounds Assessment and Plan Assessment Anesthesia Assessment: Anesthesia Plan Discussed Final Anesthetic Review NPO: Yes ASA Class: III Final Preanesthetic Review: Meds/Allgs Chart Reviewed, Consent Obtained/Reviewed and Anes Risks/Benef Reviewed Patient Risk: Intermediate Procedure Risk: Intermediate Anesthetic Plan Anesthetic Plan: MAC: Disposition: Standard PACU
[2022-01-17 08:03] LABS: UPreg QC Valid YES; Urine Pregnancy NEGATIVE (NEGATIVE)
[2022-01-17 08:27] VITALS: BP 122/69; PULSE 86; RESP 15; TEMP 36.4; O2SAT 96
[2022-01-17] MEDS: Lactated Ringers 1,000 ML 100 ML IVCONT (08:29)
--- NOTE | 2022-01-17 08:46 | MHC.SHP ---
Pre-Procedural Eval Section A Date of Service: 01/17/22 Section B Chief Complaint: Family history of malignant neoplasm of digestive Details of Present Illness: Has a sister diagnosed to have colon cancer at age of 42 Relevant Family History (Specify if Yes): Yes Relevant Social History: None Present Medications: see Short Stay Collaborative assessment Medical History: Significant History ( hyperlipidemia, iron deficiency anemia) History of Previous Operations: Relevant previous surgery/procedure and date(s) Allergies: Allergies Allergy/AdvReac Type Severity Reaction Status Date / Time No Known Allergies Allergy Verified 01/14/22 13:41 Review of Systems Sugical H&P ROS: Negative: Constitution, Cardiovascular, Respiratory, Neurological, Psychiatric, Hem-Onc, Allergic/Immunologic, Gastrointestinal, Genitourinary, Musculoskeletal, Integumentary, Endocrine and Eyes/Ears/Nose/Throat Exam Surgical H&P Exam: Normal: HEENT, Normal: Heart, Normal: Lungs, Normal: Extremities, Normal: Abdomen, Normal: Skin and Normal: Neurological Plan Diagnosis/Plan: Unchanged I have reviewed the history and physical and performed a pertinent physical examination on my patient. No changes have occurred unless specified.
--- NOTE | 2022-01-17 09:55 | W.PM.OPN ---
Operative Note Operative Note Date of Service: 01/17/22 Narrative: Preop diagnosis: family hx of colon cancer Postop diagnosis: same, with internal and external hemorrhoids, no polyps Procedure : colonoscopy Surgeon: Carlo Man M.D. The patient is a 46F with a strong family hx of colon cancer, who undergoes colonoscopy every 5 years. She understood the technique of the procedure and was aware of the risks, benefits and alternatives. She was brought to the operating room and placed in left lateral decubitus position under monitored anesthesia care. A surgical timeout was done. I proceeded to do a digital rectal exam, and there were no anal abdulkadir lesions felt except for hemorrhoids. I inserted the Olympus colonoscope and gently advanced this all the way to the cecum. The cecum was intubated. This was idetnfied via visualization of the ileocecal valve as well as the appendiceal orifice. The cecal mucosa was unremarkable. The scope was gradually withdrawn with careful examination of the entire colonic mucosa with scope withdrawal. The patient had good bowel prep so it was unlikely that any lesion may have been missed. The rectum was reached and there were no lesions seen. The anal canal was unremarkable except for internal and external hemorrhoids. The scope was withdrawn completely with dessuflation. She tolerated the procedure well. There were no immediate complications. She falls at above average risk for colon cancer so her next colonoscopy may be within the next 5 years.
[2022-01-17 10:03] VITALS: BP 104/48; PULSE 63; RESP 19; TEMP 36.3; O2SAT 98
[2022-01-17 10:18] VITALS: BP 115/67; PULSE 61; RESP 17; O2SAT 95
[2022-01-17 10:33] VITALS: BP 124/55; PULSE 61; RESP 16; TEMP 36.3; O2SAT 98
== END | disposition home or self-care (01) ==
PROVIDERS: Nurse Practitioner; PCP Internal Medicine; Visit Provider Surgery
DX: Z12.11 Encounter for screening for malignant neoplasm of colon (principal); Z80.0 Family history of malignant neoplasm of digestive organs; K64.8 Other hemorrhoids; K64.4 Residual hemorrhoidal skin tags; D50.9 Iron deficiency anemia, unspecified; E78.5 Hyperlipidemia, unspecified; D64.9 Anemia, unspecified; Q61.3 Polycystic kidney, unspecified; I10 Essential (primary) hypertension; E55.9 Vitamin D deficiency, unspecified; E66.9 Obesity, unspecified; Z68.34 Body mass index [BMI] 34.0-34.9, adult; Z79.899 Other long term (current) drug therapy
CPT/HCPCS: 45378; 81025

== ENCOUNTER → 2022-02-24 09:46 | Outpatient (BNVA) | payer OTHER, SELFPAY | PROVIDERS: PCP Internal Medicine; Visit Provider Surgery | DX: Z13.89 Encounter for screening for other disorder (principal) ==

== ENCOUNTER 2022-03-29 09:45 | Outpatient (REF) | payer OTHER, SELFPAY ==
--- NOTE | ~2022-03-29 | MM_ITS ---
EXAMINATION: MM SCREENING DIGITAL BREAST TOMOSYNTHESIS, BILATERAL CLINICAL INFORMATION: Screening. Asymptomatic. The lifetime risk of breast cancer based on the Tyrer-Cuzick Model is 16%. COMPARISON: Outside mammography: 11/01/2020, 10/26/2020, 09/19/2019 ([facility]) and prior mammography 08/21/2016, 02/16/2016, 01/20/2015, 01/14/2014 TECHNIQUE: Digital breast tomosynthesis is performed in both the craniocaudal and mediolateral oblique views along with computer-aided detection (CAD). Synthesized 2D images are generated from the tomosynthesis. FINDINGS: There are scattered areas of fibroglandular density (ACR BI-RADS breast composition Category b). There are no significant masses, abnormal calcifications, or other abnormalities. Parenchymal pattern is similar to prior studies. Minor asymmetries are stable. There is no developing density or architectural abnormality. The axilla and skin contours are unremarkable. No significant changes. MM/MM tomosynthesis screening BI IMPRESSION: No mammographic evidence of malignancy. ASSESSMENT: BI-RADS 2: Benign RECOMMENDATION: Routine annual mammography screening. This patient's information was entered into a reminder system with a target due date for their next mammogram.
== END 2022-03-29 09:46 | disposition home or self-care (01) ==
LOC: HO.MAMMO 09:45
PROVIDERS: Visit Provider Internal Medicine
DX: Z12.31 Encounter for screening mammogram for malignant neoplasm of breast (principal)
CPT/HCPCS: 77063; 77067

== ENCOUNTER 2022-09-17 16:11 | Outpatient (REF) | payer OTHER, SELFPAY ==
[2022-09-17 18:12] LABS: Appearance Urine Cloudy; Color Urine Yellow; Glucose Urine UA Negative (Negative); Leukocyte Esterase Urine Large (3+) (Negative); Nitrite Urine Negative (Negative); PH 6.5 (5.0-9.0); UMIC TRIGGER UACC YES; Urine Blood Small (1+) (Negative); Urine Ketones Negative (Negative); Urine Protein 30 (1+) mg/dL (Neg-Trace)
[2022-09-17 18:21] LABS: Bacteria Urine 4+ (None Seen); Hyaline Casts Urine 0-2 /LPF (0-2); Squamous Epithelial Cell Urine 0-2 /HPF (0-2); UACC Culture Trigger YES; WBC Urine >50 /HPF (0-5)
== END 2022-09-17 16:12 | disposition home or self-care (01) ==
LOC: HO.LAB 16:11
PROVIDERS: PCP Internal Medicine; Visit Provider Internal Medicine
DX: R39.9 Unspecified symptoms and signs involving the genitourinary system (principal)
CPT/HCPCS: 81001; 87086; 87088; 87186

== ENCOUNTER 2022-09-20 08:27 | Outpatient (REF) | payer OTHER, SELFPAY ==
[2022-09-20 08:42] LABS: MANUAL DIFF FLAG NO
[2022-09-20 09:17] LABS: Basophils Percent Auto 0.4 % (0-2); Eosinophils Absolute Auto 0.1 X10*3/uL (0.0-0.4); Eosinophils Percent Auto 2.1 % (0-4); Hematocrit 37.7 % (37.0-47.0); Hemoglobin 11.6 g/dl (12.0-16.0); Imm Gran Abs Auto 0.02 X10*3/uL (0.00-0.03); Imm Gran Pct Auto 0.3 % (0.0-0.4); Lymphocytes Absolute Auto 1.5 X10*3/uL (1.2-4.9); Lymphocytes Percent Auto 21.6 % (20-40); Mean Corpuscular HGB Conc 30.8 g/dl (31.0-35.0); Mean Corpuscular Hemoglobin 21.6 pg (27.0-33.0); Mean Corpuscular Volume 70.1 fL (80.0-98.0); Mean Platelet Volume 9.3 fL (9.4-12.3); Monocytes Absolute Auto 0.6 X10*3/uL (0.1-1.2); Monocytes Percent Auto 8.1 % (2-11); Neutrophils Absolute Auto 4.6 x10*3/uL (2.0-8.3); Neutrophils Percent Auto 67.5 % (45-73); Platelet Count 322 X10*3/uL (160-400); Red Blood Count 5.38 X10*6/uL (4.20-5.50); Red Cell Distribution Width 15.5 % (11.0-16.0); White Blood Count 6.8 X10*3/uL (4.8-10.8)
[2022-09-20 09:31] LABS: Estimated Average Glucose 111 mg/dL; Hemoglobin A1c % 5.5 %
[2022-09-20 10:02] LABS: Alanine Aminotransferase 39 U/L (0-31); Alkaline Phosphatase 90 U/L (39-117); Anion Gap 13 (12-20); Aspartate Amino Transferase 31 U/L (5-31); Bilirubin Total 0.3 mg/dL (0.0-1.0); Blood Urea Nitrogen 12 mg/dL (9-16); Carbon Dioxide 20 mmol/L (22-29); Chloride 107 mmol/L (96-108); Cholesterol 162 mg/dL; Estimated Glomerular Filt Rate > 60; Glucose Random 139 mg/dL (60-115); HDL Cholesterol 46 mg/dL; LDL Cholesterol Calculated 102 mg/dl; Potassium 4.1 mmol/L (3.3-5.1); Sodium 136 mmol/L (135-145); Total Protein 7.7 g/dL (6.5-8.0); Triglycerides 70 mg/dL
[2022-09-20 10:18] LABS: Free T4 (Free Thyroxine) 0.83 ng/dL (0.71-1.85); Thyroid Stimulating Hormone 4.61 uIU/mL (0.32-4.0); Vitamin D 25-OH Total 31.6 ng/mL (>30)
[2022-09-20 10:30] LABS: Folate 16.7 ng/mL (> or = 4.0); Vitamin B12 380 pg/mL (200-900)
== END 2022-09-20 08:28 | disposition home or self-care (01) ==
LOC: HO.LAB 08:27
PROVIDERS: PCP Internal Medicine; Visit Provider Internal Medicine
DX: Q61.3 Polycystic kidney, unspecified (principal); E78.00 Pure hypercholesterolemia, unspecified; E55.9 Vitamin D deficiency, unspecified; R73.9 Hyperglycemia, unspecified
CPT/HCPCS: 36415; 80053; 80061; 82306; 82607; 82746; 83036; 84439; 84443; 85025

== ENCOUNTER 2022-10-01 09:22 | Outpatient (AMB) | payer OTHER, SELFPAY ==
[2022-10-01 09:24] VITALS: BP 122/70; PULSE 91; O2SAT 96; BMI 34.9
--- NOTE | 2022-10-01 09:24 | MHC.PC.OV ---
Vital Signs 10/01/22 09:24 Height 5 ft 3 in Weight 197 lb BMI 34.9 BP 122/70 Blood Pressure Location Lt brachial Position Sitting Pulse 91 Pulse Source Pulse Oximeter Pulse Oximetry (%) 96 Oxygen Delivery Method Room Air Intake Visit Reasons: hypothyroid Allergies No Known Allergies Allergy (Verified 10/01/22 09:26) Medication List - Last Reconciled 10/01/22 by Stanley Contreras MD blood pressure monitor (Blood Pressure Kit) As directed ferrous sulfate 325 mg PO BID hydrocortisone 2.5% (Proctosol HC) 1 appl NM BID PRN levothyroxine 25 mcg PO DAILY@0600 lisinopril 10 mg PO DAILY meclizine 25 mg PO BID PRN multivitamin 1 tab PO DAILY Tobacco use date assessed: 04/03/22 Dental Screening Dental Screen Date: 10/01/22 Did you have a dental visit in the last 12 months?: Yes Did you have a dental problem in the last 6 months where you did not have access to dental care?: No Was dental information given to patient?: Patient has dentist HPI hypothyroid HPI Details 47-year-old obese female with iron deficiency anemia hypercholesterolemia generalized anxiety disorder polycystic kidney disease nephrolithiasis hypothyroidism hypertension last seen for physical in March 2022 patient is here for follow-up. Colonoscopy is up-to-date, mammogram is up-to-date. Patient follows up with the hematology oncology last June 2022 with iron deficiency anemia and anemia of chronic disease trial of iron done [facility] Medical History (Updated 10/01/22 @ 10:11 by Stanley Contreras MD) Anemia Anxiety Breast cancer screening by mammogram Colon cancer screening Family history of colon cancer History of kidney stones HTN (hypertension) Hypothyroid Iron deficiency anemia Obesity (BMI 30-39.9) PKD (polycystic kidney disease) Vertigo Vitamin D deficiency Surgical History (Updated 07/15/22 @ 10:48 by Jeff Em MD) Hx of colonoscopy Hx of cystoscopy No pertinent past surgical history Family History Mother Breast cancer Maternal Aunt Breast cancer IBS (irritable bowel syndrome) Maternal Aunt Breast cancer Family/Other Breast cancer Family/Other Breast cancer Sister Colon cancer Cervical cancer Maternal Uncle Heart attack Brother Diabetes Brother Diabetes Other Mental health problem Social History Household Members: Family Household Members Other:: brother Housing: Apartment Are you a primary career development counselor to a significant other at home: No Do you presently have visiting nurse or other home services: No Alcohol intake: former Patient Tobacco Use Status: Never used Tobacco e-Cigarette/Vaping Use: Never Used Second Hand Smoke Exposure: No service: No Current occupational status: employed Cognitive needs: No Hearing needs: No Vision needs: Yes Questionnaire PHQ-9 Over the last 2 weeks, how often have you been bothered by any of the following problems? 1. Little interest or pleasure in doing things: not at all 2. Feeling down, depressed, or hopeless: not at all 3. Trouble falling or staying asleep, or sleeping too much: not at all 4. Feeling tired or having little energy: not at all 5. Poor appetite or overeating: not at all 6. Feeling bad about yourself - or that you are a failure or have let yourself or your family down: not at all 7. Trouble concentrating on things, such as reading the newspaper or watching television: not at all 8. Moving or speaking so slowly that other people could have noticed. Or the opposite - being so fidgety or restless that you have been moving around a lot more than usual: not at all 9. Thoughts that you would be better off or of hurting yourself in some way: not at all Total score: 0 Depression Screening Interpretation: Negative Source: Developed by Drs. Brian Faust, Nighat Otto, Mickey Calderon and colleagues, with an educational maya from [employer]. Thrive Questionnaire Date Thrive assessed: 04/03/22 AUDIT C Alcohol Use Questionnaire (AUDIT-C) 1. How often do you have a drink containing alcohol?: Never 3. How often do you have six or more drinks on one occasion?: Never Total Score: 0 Score Reviewed/Action Taken: Yes AMANDA-7 AMB Questionnaire AMANDA-7 Date AMANDA - 7 assessed: 04/03/22 Source: Developed by Drs. Brian Faust, Mickey Romero and colleagues, with an educational maya from [employer]. Physical exam (Primary Care) Vital Signs: Last Vital Signs Pulse 91 10/01/22 09:24 BP 122/70 08/16/23 09:24 Pulse Ox 96 10/01/22 09:24 Oxygen Delivery Method Room Air 10/01/22 09:24 BMI result Body Mass Index 34.9 Tobacco/Smoking Status: Tobacco use Status Tobacco use date assessed 04/03/22 10/01/22 09:28 Patient Tobacco Use Status Never used Tobacco 10/01/22 09:28 e-Cigarette/Vaping Use Never Used 10/01/22 09:28 PHQ-9: PHQ-9 Score PHQ-9: Total score 0 10/01/22 09:40 Depression Screening Interpretation: Negative Thrive Assessment: Date of Thrive Assessment Date Thrive assessed 04/03/22 10/01/22 09:28 Const General: alert; No acute distress Eyes Conjunctivae: conjunctivae normal Resp Auscultation: clear to auscultation bilaterally Cardio Rate: regular rate Rhythm: regular rhythm GI Inspection: Yes normal to inspection Extrem General: Yes normal to inspection and No edema Assessment and Plan Assessment & Plan (1) Iron deficiency anemia: Code(s): D50.9 - Iron deficiency anemia, unspecified Qualifiers: Iron deficiency anemia type: chronic blood loss Qualified Code(s): D50.0 - Iron deficiency anemia secondary to blood loss (chronic) Plan: Patient follows up with Hematology Oncology and has started on iron (2) Obesity (BMI 30-39.9): Code(s): E66.9 - Obesity, unspecified Plan: Diet and exercise (3) Hypothyroid: Code(s): E03.9 - Hypothyroidism, unspecified Qualifiers: Hypothyroidism type: acquired Qualified Code(s): E03.9 - Hypothyroidism, unspecified Plan: Continue with thyroid medication, retest TSH (4) HTN (hypertension): Code(s): I10 - Essential (primary) hypertension Qualifiers: Hypertension type: essential hypertension Qualified Code(s): I10 - Essential (primary) hypertension Plan: Continue with blood pressure medication. Decrease salt intake and exercise (5) Plantar fasciitis, bilateral: Code(s): M72.2 - Plantar fascial fibromatosis Plan: Discussed about the weight, gel insoles, exercises showed to patient pain . If persist to call. Coding Level of Care Code Est Pt Level 4 (59027) Diagnoses Iron deficiency anemia D50.0 Iron deficiency anemia type: chronic blood loss Obesity (BMI 30-39.9) E66.9 Hypothyroid E03.9 Hypothyroidism type: acquired HTN (hypertension) I10 Hypertension type: essential hypertension Plantar fasciitis, bilateral M72.2 Additional Codes PHQ-9 - 32855 - PHQ-9 Billing: Y ([id number])
== END 2022-10-01 11:02 | disposition home or self-care (01) ==
PROVIDERS: PCP Internal Medicine; Visit Provider Internal Medicine
DX: D50.0 Iron deficiency anemia secondary to blood loss (chronic) (principal); E03.9 Hypothyroidism, unspecified; Z68.34 Body mass index [BMI] 34.0-34.9, adult; I10 Essential (primary) hypertension; E66.9 Obesity, unspecified; M72.2 Plantar fascial fibromatosis
CPT/HCPCS: 99214

== ENCOUNTER 2022-10-09 08:35 | Emergency (ER) | payer OTHER, SELFPAY ==
--- NOTE | ~2022-10-09 | US_ITS ---
EXAMINATION: US VENOUS ULTRASOUND WITH DOPPLER LOWER EXTREMITY, RIGHT CLINICAL INFORMATION: Calf pain COMPARISON: None available. TECHNIQUE: Ultrasound of the deep veins is performed from the hip to the calf with compression sonography and color and pulse Doppler assessment. Spectral analysis with color-flow imaging is performed. FINDINGS: There is normal venous compression and respiratory variation and augmented flow. The visualized common femoral vein, superficial femoral vein, profunda femoral vein, popliteal vein, and the trifurcation region shows no evidence of deep venous thrombosis. There is no significant popliteal fossa cyst. If the patient's symptoms persist, followup ultrasound in 5 days 7 days might be of value to exclude proximal propagation from a non-visualized calf vein. US/US venous duplex LE RT IMPRESSION: No DVT demonstrated in the right lower extremity.
[2022-10-09 08:41] VITALS: BP 107/80; PULSE 91; RESP 12; TEMP 37.4; O2SAT 97; BMI 34.9
[2022-10-09 10:17] VITALS: BP 124/60; PULSE 63; RESP 16
--- NOTE | 2022-10-09 11:29 | ED_ITS ---
HPI - Extremity Problem General Chief complaint: Extremity Problem Stated complaint: r leg pain Time Seen by Provider: 10/09/22 08:56 Source: patient and RN notes reviewed Mode of arrival: ambulatory Limitations: no limitations History of Present Illness HPI Narrative: This is a 47-year-old female presenting to the emergency department for evaluation of right leg pain x4 days. Patient denies any recent trauma or injury. She states that she walks lots of miles every day, and reports that she has pain while walking especially stairs. She denies foot pain, knee pain or back pain. Denies fevers, chills, chest pain, shortness breath, abdominal pain, nausea, vomiting, or diarrhea. Denies history of similar symptoms in the past. No other complaints or concerns at this time. MD Complaint: extremity pain Onset (ago): day(s) Pain Consistency: constant Location: right and lower extremity Quality: aching Radiation: none Relieving factors: nothing Exacerbating factors: nothing Associated symptoms: denies other symptoms Related Data Home Medications Medication Instructions Recorded Confirmed multivitamin 1 tab PO DAILY 03/30/20 10/01/22 levothyroxine 25 mcg tablet 25 mcg PO DAILY@0600 01/02/22 10/01/22 Previous Rx's Medication Instructions Recorded hydrocortisone 2.5 % topical cream 1 appl [place] BID PRN itching #30 grams 08/01/21 with perineal applicator (Proctosol HC) blood pressure monitor (Blood #1 ea 04/03/22 Pressure Kit) lisinopril 10 mg tablet 10 mg PO DAILY #90 tabs 06/10/22 ferrous sulfate 325 mg (65 mg 325 mg PO BID #60 tabs 07/15/22 iron) tablet meclizine 25 mg tablet 25 mg PO BID PRN dizziness #60 tabs 09/08/22 Allergies Allergy/AdvReac Type Severity Reaction Status Date / Time No Known Allergies Allergy Verified 10/01/22 09:26 Review of Systems Review of Systems: Yes all other systems are reviewed and are negative Constitutional: Constitutional: Reports as per HPI [facility] Past Medical History Medical History (Updated 10/09/22 @ 11:33 by CANDIDO Bentley) Anemia Anxiety Breast cancer screening by mammogram Colon cancer screening Family history of colon cancer History of kidney stones HTN (hypertension) Hypothyroid Iron deficiency anemia Obesity (BMI 30-39.9) PKD (polycystic kidney disease) Vertigo Vitamin D deficiency Surgical History (Updated 07/15/22 @ 10:48 by Jeff Em MD) Hx of colonoscopy Hx of cystoscopy No pertinent past surgical history Family History Family History Mother Breast cancer Maternal Aunt Breast cancer IBS (irritable bowel syndrome) Maternal Aunt Breast cancer Family/Other Breast cancer Family/Other Breast cancer Sister Colon cancer Cervical cancer Maternal Uncle Heart attack Brother Diabetes Brother Diabetes Other Mental health problem Social History Social History Household Members: Family Household Members Other:: brother Housing: Apartment Are you a primary care management specialist to a significant other at home: No Do you presently have visiting nurse or other home services: No Alcohol intake: former Patient Tobacco Use Status: Never used Tobacco Smoked in Last 30 Days: No e-Cigarette/Vaping Use: Never Used Second Hand Smoke Exposure: No Use of substances other than those prescribed or required for medical reasons: No Advance Directives: No Advance Directives Information Provided: Yes service: No Current occupational status: employed Cognitive needs: No Hearing needs: No Vision needs: Yes Physical Exam Vital Signs: Vital Signs: Last Vital Signs Temp 99.3 F 10/09/22 08:41 Pulse 63 10/09/22 10:17 Resp 16 10/09/22 10:17 BP 124/60 10/09/22 10:17 Pulse Ox 97 10/09/22 08:41 O2 Del Method Room Air 10/09/22 08:41 BMI result Body Mass Index 34.9 Const: General: cooperative, comfortable and no acute distress Orientation/consciousness: patient oriented x3 Limitations: no limitations HEENT: Head: Yes normal to inspection, Yes normocephalic and Yes atraumatic Ears: hearing grossly normal bilaterally General nose exam: Normal external nose present Face and sinus: Yes normal facial exam Mouth: Normal oral and palatal mucosa present, oropharynx normal and moist mucous membranes Throat: Yes posterior oropharynx normal Eyes: General: appearance normal, both eyes and all related structures Eyelids: Yes eyelids normal Conjunctivae: conjunctivae normal Sclerae: sclerae normal Pupils: Equal, round and reactive pupils present EOM: EOMs intact bilaterally Neck: Neck: Yes normal visual inspection, Yes full ROM and Yes no lymphadenopathy Lymphatic: no lymphadenopathy noted Chest: Chest palpation & inspection: normal inspection of the chest Resp: Effort & Inspection: normal respiratory effort and able to speak in complete sentences Auscultation: clear to auscultation bilaterally, no crackles, no rales, no rhonchi and no wheezes Cardio: Rate: regular rate Rhythm: regular rhythm Heart sounds: S1 normal heart sound present and S2 normal heart sound present GI: Inspection: Yes normal to inspection Skin: General skin exam: no rashes or lesions noted Trauma: no lacerations or abrasions Wounds: no wounds Neuro: General: patient oriented x3 and moves all extremities Cranial nerves: Yes Equal, round and reactive pupils present Extrem: Other: Right knee nontender, tenderness to palpation of the right calf with weight- bearing, no tenderness to palpation at rest. DP pulses 2+. Patient is ambulatory. No overlying skin changes noted to the right lower extremity. General: Yes normal to inspection Right upper extremity: normal to inspection Left upper extremity: normal to inspection Right lower extremity: normal to inspection Left lower extremity: normal to inspection Medical Decision Making Medical Decision Making MDM Narrative: 47-year-old female presenting to the emergency department for evaluation of right leg pain x4 days. No trauma or injury however reports that she walks many miles a day. On arrival, vital signs within normal limits. Differential diagnoses include DVT versus muscle strain. Patient has no chest pain or shortness of breath, no recent travel, surgeries, hospitalizations, history of blood clots, clotting disorders, cancer history, tobacco use, or control use. PE and DVT unlikely however will obtain ultrasound for rule out. On review of physical examination, sneakers that patient wears every day are worn out at the bottom. Discussed with patient it is important to wear supportive shoes. Encouraged to take ibuprofen or Tylenol as needed for pain. Advised follow-up with primary care physician as needed. If any new or worsening symptoms occur, patient was advised to return for re-evaluation. Patient understands and agrees with plan. Patient stable for discharge. Differential Diagnosis Differential Diagnoses: The differential diagnosis associated with the presentation includes Muscle strain, muscle contusion, DVT, johnson cyst Radiology Impression Discussion of test interpretation with radiology: I have reviewed the radiologist's reading. Radiologist Impression: EXAMINATION:? US VENOUS ULTRASOUND WITH DOPPLER LOWER EXTREMITY, RIGHT CLINICAL INFORMATION:? Calf pain COMPARISON:? None available. TECHNIQUE: Ultrasound of the deep veins is performed from the hip to the calf with compression sonography and color and pulse Doppler assessment. Spectral analysis with color-flow imaging is performed. FINDINGS: There is normal venous compression and respiratory variation and augmented flow. The visualized common femoral vein, superficial femoral vein, profunda femoral vein, popliteal vein, and the trifurcation region shows no evidence of deep venous thrombosis. ? There is no significant popliteal fossa cyst. If the patient's symptoms persist, followup ultrasound in 5 days 7 days might be of value to exclude proximal propagation from a non-visualized calf vein. US/US venous duplex LE RT IMPRESSION: No DVT demonstrated in the right lower extremity. Dictated By: Thaddeus Dang MD Discharge Plan Discharge Clinical Impression: Pain in right leg Patient Disposition: Home, Self-Care Instructions: Leg Cramps (ED), Leg Pain (ED) Additional Instructions: Your ultrasound was negative for blood clots Please rest, use heat or ice, gentle massage and stretching. You may use ibuprofen or Tylenol as needed for pain. Invest in good supportive sneakers. Please follow-up with your primary care physician regarding this visit. If any new or worsening symptoms occur, please return for re-evaluation. Prescriptions: No Action lisinopril 10 mg tablet 10 mg PO DAILY Qty: 90 2RF meclizine 25 mg tablet 25 mg PO BID PRN (Reason: dizziness) Qty: 60 3RF ferrous sulfate 325 mg (65 mg iron) Tablet 325 mg PO BID Qty: 60 3RF levothyroxine 25 mcg tablet 25 mcg PO DAILY@0600 multivitamin Tablet 1 tab PO DAILY (DME) blood pressure monitor [Blood Pressure Kit] Kit See Rx Instructions .ROUTE .MEDSUPPLY Qty: 1 0RF Rx Instructions: As directed hydrocortisone [Proctosol HC] 2.5 % cream with perineal applicator 1 appl [place] BID PRN (Reason: itching) Qty: 30 0RF Stand Alone Forms: Work/School Release
== END 2022-10-09 11:38 | disposition home or self-care (01) ==
PROVIDERS: Emergency Provider Emergency Medicine; PCP Internal Medicine
DX: M79.604 Pain in right leg (principal); I10 Essential (primary) hypertension; D50.9 Iron deficiency anemia, unspecified; E66.9 Obesity, unspecified; Z68.34 Body mass index [BMI] 34.0-34.9, adult; Z79.899 Other long term (current) drug therapy
CPT/HCPCS: 93971; 99284

== ENCOUNTER 2022-11-22 09:38 | Outpatient (REF) | payer OTHER, SELFPAY | END 2022-11-22 09:39 | disposition home or self-care (01) | LOC: HO.LAB 09:38 | PROVIDERS: PCP Internal Medicine; Visit Provider Internal Medicine | DX: E03.9 Hypothyroidism, unspecified (principal) | CPT/HCPCS: 36415; 84439; 84443 ==

== ENCOUNTER 2023-04-10 09:52 | Outpatient (AMB) | payer OTHER, SELFPAY ==
[2023-04-10 10:06] VITALS: BP 130/78; PULSE 90; O2SAT 97; BMI 32.2
--- NOTE | 2023-04-10 10:06 | A.OFFPC_ITS ---
Vital Signs 04/10/23 10:06 Height 5 ft 3 in Weight 182 lb BMI 32.2 BP 130/78 Blood Pressure Location Lt brachial Position Sitting Pulse 90 Pulse Source Pulse Oximeter Pulse Oximetry (%) 97 Oxygen Delivery Method Room Air Intake Visit Reasons: Annual Exam Intake Note: Patient is here today for a physical. Speech And Language Assistant Required: No Allergies No Known Allergies Allergy (Verified 04/10/23 10:07) Medication List - Last Reconciled 04/10/23 by Stanley Contreras MD blood pressure monitor (Blood Pressure Kit) As directed ferrous sulfate 325 mg PO BID hydrocortisone 2.5% (Proctosol HC) 1 appl [place] BID PRN levothyroxine 25 mcg PO DAILY@0600 lisinopril 10 mg PO DAILY lorazepam 0.5 mg PO DAILY PRN meclizine 25 mg PO BID PRN multivitamin 1 tab PO DAILY Tobacco use date assessed: 04/10/23 Dental Screening Dental Screen Date: 04/10/23 Did you have a dental visit in the last 12 months?: Yes Did you have a dental problem in the last 6 months where you did not have access to dental care?: No Was dental information given to patient?: Patient has dentist HPI Annual Exam HPI Details 47-year-old obese female with hypothyroi dism hypertension iron deficiency anemia last seen in September 2022 patient is here for physical exam patient's colonoscopy is up-to-date mammogram is due this month. Review of the notes was seen by hematology oncology for the iron deficiency anemia/anemia of chronic disease continuing to follow-up. Patient has also seen Nephrology. No diagnosis problem ER visit for right leg pain also in September 2022 [facility] Medical History (Updated 04/10/23 @ 10:53 by Stanley Contreras MD) Breast cancer screening by mammogram Vertigo History of kidney stones Family history of colon cancer Colon cancer screening Vitamin D deficiency Obesity (BMI 30-39.9) Anxiety Iron deficiency anemia Anemia HTN (hypertension) Hypothyroid PKD (polycystic kidney disease) Surgical History Hx of cystoscopy Hx of colonoscopy No pertinent past surgical history Family History Mother Breast cancer Maternal Aunt Breast cancer IBS (irritable bowel syndrome) Maternal Aunt Breast cancer Family/Other Breast cancer Family/Other Breast cancer Sister Colon cancer Cervical cancer Maternal Uncle Heart attack Brother Diabetes Brother Diabetes Other Mental health problem Social History (Updated 04/10/23 @ 10:56 by Stanley Contreras MD) Household Members: Family Household Members Other:: brother Housing: Apartment Are you a primary tire care manager to a significant other at home: No Do you presently have visiting nurse or other home services: No Alcohol intake: former Comment: 2012 quit Patient Tobacco Use Status: Never used Tobacco e-Cigarette/Vaping Use: Never Used Second Hand Smoke Exposure: No service: No Current occupational status: employed Cognitive needs: No Hearing needs: No Vision needs: Yes Questionnaire PHQ-9 Over the last 2 weeks, how often have you been bothered by any of the following problems? 1. Little interest or pleasure in doing things: not at all 2. Feeling down, depressed, or hopeless: not at all 3. Trouble falling or staying asleep, or sleeping too much: nearly every day 4. Feeling tired or having little energy: not at all 5. Poor appetite or overeating: not at all 6. Feeling bad about yourself - or that you are a failure or have let yourself or your family down: not at all 7. Trouble concentrating on things, such as reading the newspaper or watching television: not at all 8. Moving or speaking so slowly that other people could have noticed. Or the opposite - being so fidgety or restless that you have been moving around a lot more than usual: not at all 9. Thoughts that you would be better off or of hurting yourself in some way: not at all Total score: 3 Depression Screening Interpretation: Negative Depression Screening Done: Yes Source: Developed by Drs. Brian Faust, Nighat Otto, Mickey Calderon and colleagues, with an educational maya from [employer]. Thrive Questionnaire Date Thrive assessed: 04/10/23 I am a: Patient What is your living situation today?: I have a steady place to live Within the past 12 months, did the food you bought not last and you didn't have the money to get more?: Never true Within the past 12 months, did you worry whether your food would run out before you got money to buy more?: Never true Do you have trouble paying for medicines?: No Do you have trouble getting transportation to medical appointments?: No Do you have trouble paying your heating and electricity bill?: No Do you have trouble taking care of your child, family member or friend?: No Do you have trouble with day-to-day activities such as bathing, preparing meals, shopping, managing finances, etc.?: No Are you currently unemployed and looking for a job?: No Are you interested in more education?: No Please select the resources that you would like help with: None THRIVE Score: 0 AUDIT C Alcohol Use Questionnaire (AUDIT-C) 1. How often do you have a drink containing alcohol?: Never 3. How often do you have six or more drinks on one occasion?: Never Total Score: 0 Score Reviewed/Action Taken: Yes AMANDA-7 AMB Questionnaire AMANDA-7 Date AMANDA - 7 assessed: 04/10/23 Feeling nervous, anxious, or on edge: 0 = Not at all Not being able to stop or control worryin = Several days Worrying too much about different things: 0 = Not at all Trouble relaxin = Not at all Being so restless that it is hard to sit still: 0 = Not at all Becoming easily annoyed or irritable: 0 = Not at all Feeling afraid as if something awful might happen: 0 = Not at all Total AMANDA-7 score (0-4 normal; 5-9 mild; 10-14 moderate; 15-21 severe): 1 Source: Developed by Drs. Brian Faust, Nighat Otto, Mickey Calderon and colleagues, with an educational maya from [employer]. Review of Systems Const Denies poor appetite and Denies weakness Eyes Denies no additional complaints ENT Reports Normal hearing present, Denies dizziness, Denies nasal congestion, Denies tinnitus and Denies sore throat Card Denies chest pain, Denies syncope, Denies rapid heart rate and Denies dyspnea Resp Denies cough and Denies dyspnea GI Denies change in stool character, Reports constipation, Denies diarrhea, Denies nausea and Denies vomiting Denies urinary frequency, Denies difficulty voiding and Denies dysuria Neuro Reports Normal hearing present, Denies confusion, Denies dizziness, Denies syncope and Denies weakness Psych Denies confusion Physical exam (Primary Care) Vital Signs: Last Vital Signs Pulse 90 04/10/23 10:06 BP 130/78 04/10/23 10:06 Pulse Ox 97 04/10/23 10:06 Oxygen Delivery Method Room Air 04/10/23 10:06 BMI result Body Mass Index 32.2 Tobacco/Smoking Status: Tobacco use Status Tobacco use date assessed 04/10/23 04/10/23 10:08 Patient Tobacco Use Status Never used Tobacco 04/10/23 10:08 e-Cigarette/Vaping Use Never Used 04/10/23 10:08 PHQ-9: PHQ-9 Score PHQ-9: Total score 3 04/10/23 10:18 Depression Screening Interpretation: Negative Thrive Assessment: Date of Thrive Assessment Date Thrive assessed 04/10/23 04/10/23 10:08 Const General: No confusion Orientation/consciousness: No confusion HENMT Head: Yes normocephalic Ears: external ears normal and TM's normal bilaterally Face and sinus: Yes normal facial exam Mouth: moist mucous membranes Throat: Yes tonsils normal Eyes Conjunctivae: conjunctivae normal Pupils: Equal, round and reactive pupils present and Pupil accommodation reflex normal Direct Ophthalmoscopy: normal light reflex Neck Neck: No lymphadenopathy Thyroid: Thyroid normal Chest Chest palpation & inspection: normal inspection of the chest Resp Effort & Inspection: normal respiratory effort and no audible wheezes Auscultation: clear to auscultation bilaterally, no crackles, no wheezes and lung sounds not diminished Cardio Rate: regular rate Rhythm: regular rhythm Peripheral pulses: radial pulses present and dorsalis pedis present GI Palpation (GI): no masses Auscultation: normal bowel sounds and normoactive bowel sounds Rectal Exam - Female: deferred Skin General skin exam: no rashes or lesions noted Rashes: no rashes Neuro General: No confusion Cranial nerves: Yes Equal, round and reactive pupils present and Yes Normal hear ing present Cognition (Neuro): normal cognition Gait exam (Neuro): Normal gait present Motor exam (neuro): 5/5 motor strength present throughout Deep tendon reflexes (DTR's): Right brachioradialis reflex intensity grade: 2+, Left brachioradialis reflex intensity grade: 2+, Right patellar reflex intensity grade: 2+ and Left patellar reflex intensity grade: 2+ Extrem General: No edema Assessment and Plan Assessment & Plan (1) Annual physical exam: Code(s): Z00.00 - Encounter for general adult medical examination without abnormal findings (2) Anemia of chronic disease: Code(s): D63.8 - Anemia in other chronic diseases classified elsewhere Plan: Patient follows up with Hematology-Oncology and stable (3) Obesity (BMI 30-39.9): Code(s): E66.9 - Obesity, unspecified Plan: Diet and exercise (4) HTN (hypertension): Code(s): I10 - Essential (primary) hypertension Qualifiers: Hypertension type: essential hypertension Qualified Code(s): I10 - Essential (primary) hypertension Plan: Continue with blood pressure medication. Decrease salt intake and exercise presently on lisinopril 10 mg once a day (5) Hypothyroid: Code(s): E03.9 - Hypothyroidism, unspecified Qualifiers: Hypothyroidism type: acquired Qualified Code(s): E03.9 - Hypothyroidism, unspecified Plan: Continue with thyroid medication (6) Generalized anxiety disorder: Comment: Counseling declined referral July 2021 Code(s): F41.1 - Generalized anxiety disorder Plan: Stable (7) Hypercholesterolemia: Code(s): E78.00 - Pure hypercholesterolemia, unspecified Plan: Avoid fried foods, chicken skin, eggs, butter margarine, pastries and meat. Be it pork or beef they have a lot of cholesterol LDL goal of less than 130 and triglyceride of less than 150 (8) Bilateral knee pain: Code(s): M25.561 - Pain in right knee; M25.562 - Pain in left knee Orders: Orders Free T4 (Free Thyroxine) Today E78.00 - Pure hypercholesterolemia, unspecified Lipid Panel Today E78.00 - Pure hypercholesterolemia, unspecified IRON PROFILE Today E78.00 - Pure hypercholesterolemia, unspecified Reticulocyte Count Today E78.00 - Pure hypercholesterolemia, unspecified Thyroid Stimulating Hormone Today E78.00 - Pure hypercholesterolemia, unspecified XR knee standing BI Today M25.561 - Pain in right knee, M25.562 - Pain in left knee Vitamin B12 and Folate Today E78.00 - Pure hypercholesterolemia, unspecified Vitamin D 25-OH Total Today E78.00 - Pure hypercholesterolemia, unspecified Ferritin Today E78.00 - Pure hypercholesterolemia, unspecified Medications: New lorazepam 0.5 mg PO DAILY PRN 14 tabs 1RF anxiety F41.1 - Generalized anxiety disorder Refilled ferrous sulfate 325 mg PO BID 60 tabs 3RF Coding Level of Care Code Est Pt Prev Care 40-64y(66852) Diagnoses Annual physical exam Z00.00 Anemia of chronic disease D63.8 Obesity (BMI 30-39.9) E66.9 Essential hypertension I10 Hypertension type: essential hypertension Acquired hypothyroidism E03.9 Hypothyroidism type: acquired Generalized anxiety disorder F41.1 Hypercholesterolemia E78.00 Bilateral knee pain M25.561; M25.562
== END 2023-04-10 11:06 | disposition home or self-care (01) ==
PROVIDERS: Visit Provider Internal Medicine
DX: Z00.00 Encounter for general adult medical examination without abnormal findings (principal); D63.8 Anemia in other chronic diseases classified elsewhere; E66.9 Obesity, unspecified; Z68.32 Body mass index [BMI] 32.0-32.9, adult; I10 Essential (primary) hypertension; E03.9 Hypothyroidism, unspecified; F41.1 Generalized anxiety disorder; E78.00 Pure hypercholesterolemia, unspecified; M25.561 Pain in right knee; M25.562 Pain in left knee
CPT/HCPCS: 99396

== ENCOUNTER 2023-04-10 11:16 | Outpatient (REF) | payer OTHER, SELFPAY ==
--- NOTE | ~2023-04-10 | XR_ITS ---
EXAMINATION: XR KNEE AP STANDING, BILATERAL CLINICAL INFORMATION: Pain in right knee. COMPARISON: None available. TECHNIQUE: AP bilateral standing view of the knees was obtained. FINDINGS: RIGHT KNEE: [id number] medial and mild lateral joint space narrowing. Small medial and lateral marginal osteophytes. Multiple ossific/calcific densities projecting over the intertrochanteric notch may be posterior to the knee, but loose bodies should also be considered. LEFT KNEE: Mild medial joint space narrowing. Tiny medial and small lateral marginal osteophytes. XR/XR knee standing BI IMPRESSION: 1. [id number] degenerative changes right knee. 2. Mild degenerative changes left knee. 3. Multiple ossific/calcific densities projecting over the intertrochanteric notch may be posterior to the knee, but loose bodies should also be considered.
== END 2023-04-10 11:17 | disposition home or self-care (01) ==
LOC: HO.XRAY 11:16
PROVIDERS: PCP Internal Medicine; Visit Provider Internal Medicine
DX: M25.561 Pain in right knee (principal); M25.562 Pain in left knee
CPT/HCPCS: 73565

== ENCOUNTER 2023-04-11 10:04 | Outpatient (REF) | payer OTHER, SELFPAY | END 2023-04-11 10:05 | disposition home or self-care (01) | LOC: HO.MAMMO 10:04 | PROVIDERS: PCP Internal Medicine; Visit Provider Internal Medicine | DX: Z12.31 Encounter for screening mammogram for malignant neoplasm of breast (principal) | CPT/HCPCS: 77063; 77067 ==

== ENCOUNTER → 2023-04-11 10:30 | Outpatient (BNV) | payer OTHER, SELFPAY | PROVIDERS: PCP Internal Medicine; Visit Provider Radiology Diagnostic Radiology | DX: Z12.31 Encounter for screening mammogram for malignant neoplasm of breast (principal) | CPT/HCPCS: 77063; 77067 ==

== ENCOUNTER 2023-04-15 13:01 | Outpatient (REF) | payer OTHER, SELFPAY | END 2023-04-15 13:02 | disposition home or self-care (01) | LOC: HO.MAMMO 13:01 | PROVIDERS: Visit Provider Internal Medicine | DX: Z13.89 Encounter for screening for other disorder (principal) ==

== ENCOUNTER 2023-09-11 12:57 | Outpatient (REF) | payer OTHER, SELFPAY ==
[2023-09-11 13:21] LABS: Immature Retic Fraction 16.6 % (3.0-15.9); Retic HGB Equivalent 24.9 pg (30.0-35.0); Reticulocyte Percent 1.8 % (0.5-1.8)
[2023-09-11 14:02] LABS: HBS Num1 0.64 mIU/mL (0-7.99); HBc Num1 0.15 S/CO (0.00-0.79); HBsAGNum1 0.26 S/CO (0.00-0.99); Hepatitis B Core Antibody Nonreactive (Nonreactive); Hepatitis B Surface Antigen Negative (Negative); ~HepC Num1 0.15 S/CO (0.00-0.79); ~Hepatitis B Surface Antibody NONREACTIVE (Nonreactive); ~Hepatitis C Antibody Nonreactive (Nonreactive)
[2023-09-11 14:14] LABS: Folate 14.5 ng/mL (> or = 4.0); Vitamin B12 512 pg/mL (200-900)
[2023-09-13 19:39] LABS: TS Negative Control Passed; TS Panel A 2; TS Panel B 3; TS Positive Control Passed; TSpotTB Negative (Negative)
[2023-09-15 02:49] LABS: Rubella IgG Antibody 2.45 Index
[2023-09-15 22:18] LABS: Rubeola IgG (Measles) <13.50 AU/mL
== END 2023-09-11 12:58 | disposition home or self-care (01) ==
LOC: HO.LAB 12:57
PROVIDERS: PCP Internal Medicine; Visit Provider Internal Medicine
DX: Z02.1 Encounter for pre-employment examination (principal); E78.00 Pure hypercholesterolemia, unspecified; Z02.0 Encounter for examination for admission to educational institution; R79.89 Other specified abnormal findings of blood chemistry
CPT/HCPCS: 36415; 82607; 82746; 85045; 86481; 86704; 86706; 86735; 86762; 86765; 86787; 86803; 87340

== ENCOUNTER 2023-09-21 09:20 | Outpatient (AMB) | payer OTHER, SELFPAY ==
--- NOTE | 2023-09-21 09:36 | A.OFFVIS_ITS ---
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 Operator Required: No Information Interpreted: clinical only Ice Rink Attendant: Ice Rink Attendant Present Allergies No Known Allergies Allergy (Verified 09/21/23 09:36) Medication List - Last Reconciled 09/21/23 by Lilian Davis CNM blood pressure monitor (Blood Pressure Kit) As directed ferrous sulfate 325 mg PO BID hydrocortisone 2.5% (Proctosol HC) 1 appl [place] BID PRN levothyroxine 25 mcg PO DAILY@0600 lisinopril 10 mg PO DAILY lorazepam 0.5 mg PO DAILY PRN meclizine 25 mg PO BID PRN multivitamin 1 tab PO DAILY Is last menstrual period known: Yes Last menstrual period: 09/08/23 Do you need a note to return to daycare/school/sports/work: No HPI HPI 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 She has no history of abnormal Pap smears. She sees Dr. Brandt and her kidney doctor all the time for regular care she has polycystic kidney disease. And she is on medication for it and she says she has good sometimes she says her blood sugars get high and it is when she eats for anxiety and she likes chooses and ice cream and finds her blood sugar goes high but she is not prediabetic or diabetic but she monitors her own blood sugar she does have fasting labs to do for her primary care doctor and she plans to do them either today or this week she is on vacation. 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 She is tired she is not sexually active she does get her regular mammograms. She knows she needs to that is what her doctor tells her. FORMERLY [facility], [facility]1983 Medical History Breast cancer screening by mammogram Vertigo History of kidney stones Family history of colon cancer Colon cancer screening Vitamin D deficiency Obesity (BMI 30-39.9) Anxiety Iron deficiency anemia Anemia HTN (hypertension) Hypothyroid PKD (polycystic kidney disease) Surgical History Hx of cystoscopy Hx of colonoscopy No pertinent past surgical history Family History Mother Breast cancer Maternal Aunt Breast cancer IBS (irritable bowel syndrome) Maternal Aunt Breast cancer Family/Other Breast cancer Family/Other Breast cancer Sister Colon cancer Cervical cancer Maternal Uncle Heart attack Brother Diabetes Brother Diabetes Other Mental health problem Social History Household Members: Family Household Members Other:: brother Housing: Apartment Are you a primary career development specialist to a significant other at home: No Do you presently have visiting nurse or other home services: No Alcohol intake: former Comment: 2012 quit Patient Tobacco Use Status: Never used Tobacco e-Cigarette/Vaping Use: Never Used Second Hand Smoke Exposure: No service: No Current occupational status: employed Cognitive needs: No Hearing needs: No Vision needs: Yes Female Reproductive History Menstrual Age of Menarche: 13 Duration of menses: 3-5 days Date of last menstrual period: 09/08/23 control method: none Total pregnancies: 0 Date of last pap smear: 03/17/18 (neg.per patient) History of abnormal pap smear: Yes Date of Mammogram: 04/11/23 (negative) History of abnormal mammogram: No Physical Exam Vital Signs: Last Vital Signs BP 118/74 09/21/23 09:40 BMI result Body Mass Index 34.4 Const General: healthy appearing, comfortable, no acute distress, well developed and alert Nutritional Appearance: average body habitus Orientation/consciousness: patient oriented x3 Limitations: no limitations HEENT Head: Yes normocephalic Neck Neck: Yes normal visual inspection Chest Chest palpation & inspection: normal inspection of the chest Breast/axilla inspection: normal inspection of the breasts and normal inspection of the axillae Breast/axilla palpation: normal palpation of the breasts and normal palpation of the axillae Resp Effort & Inspection: normal respiratory effort GI Inspection: Yes normal to inspection, No Abdominal wall edema and No distended Palpation (GI): Soft to palpation and nontender Other: Normal external exam vagina is pink and moist cervix nulliparous pink smooth healthy appearing difficult to reach but nontender on bimanual exam very good tone with Kegel challenging to relax during the visit. General: Yes bladder normal to palpation External Female Exam: normal external appearance and normal appearance of the u rethra Speculum Exam - Vagina: normal appearance of the vagina, normal palpation and normal vaginal discharge Speculum Exam - Cervix: normal appearance of the cervix, normal palpation and nontender Bimanual exam- vagina & uterus: normal bimanual exam, normal palpation, uterine size normal, bladder normal to palpation, consistency normal, normal palpation, uterine mobility normal, uterine shape normal, No Cervical tenderness present, non-tender and no cervical motion tenderness Bimanual Exam- Adnexa, other: normal adnexae, no masses, normal and No adnexal tenderness Neuro General: patient oriented x3 Assessment & Plan Assessment & Plan (1) Cervical cancer screening: Code(s): Z12.4 - Encounter for screening for malignant neoplasm of cervix Category: Medical (2) PKD (polycystic kidney disease): Comment: Nephrology has seen patient negative Code(s): Q61.3 - Polycystic kidney, unspecified Category: Medical (3) Women's annual routine gynecological examination: Code(s): Z01.419 - Encounter for gynecological examination (general) (routine) without abnormal findings Category: Medical Plan -----Discussed in this visit the following: healthy balanced diet, regular and consistent exercise, getting recommended health screens, doing the best she can for her particular health concerns, kegel exercises, pap smear screening and followup recommendations, mammography screening and SBE, normal changes in cycles in her life stage--- . Discussed the relationship between elevated blood sugars and yeast infections we will wait testing though she has no symptoms today and she does not appear to have any abnormal discharge or yeast in appearance. Discussed dorita menopausal changes and what to expect in the coming months and years. 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 She is continuing with primary care and care of her kidneys discussed the challenges of weight loss and eating and anxiety and making healthier choices which is very challenging. Coding Level of Care Code New Pt Prev Care 40-64y(86535) Diagnoses Cervical cancer screening Z12.4 PKD (polycystic kidney disease) Q61.3 Women's annual routine gynecological examination Z01.419
[2023-09-21 09:40] VITALS: BP 118/74; BMI 34.4
== END 2023-09-21 11:22 | disposition home or self-care (01) ==
LOC: HO.HWSM 09:20
PROVIDERS: PCP Internal Medicine; Visit Provider Advanced Practice Midwife
DX: Z01.419 Encounter for gynecological examination (general) (routine) without abnormal findings (principal); Q61.3 Polycystic kidney, unspecified
CPT/HCPCS: 99386

== ENCOUNTER 2023-09-21 09:20 | Outpatient (REF) | payer OTHER, SELFPAY ==
[2023-09-22 04:08] LABS: CT PCR NOT DETECTED (Not Detect.); NG PCR NOT DETECTED (Not Detect.)
[2023-09-22 09:02] LABS: Bacterial Vaginosis PCR POSITIVE (Negative); Candida Group PCR NOT DETECTED (Not Detect); Candida glab krusei PCR NOT DETECTED (Not Detect); Trichomonas vaginalis PCR NOT DETECTED (Not Detect)
[2023-09-23 13:08] LABS: HPV mRNA E6/E7 Not Detected (Not Detected)
== END 2023-09-21 09:21 | disposition home or self-care (01) ==
LOC: HO.LAB 09:20
PROVIDERS: PCP Internal Medicine; Visit Provider Advanced Practice Midwife
DX: Z01.419 Encounter for gynecological examination (general) (routine) without abnormal findings (principal); Z11.51 Encounter for screening for human papillomavirus (HPV); Z20.2 Contact with and (suspected) exposure to infections with a predominantly sexual mode of transmission; N89.8 Other specified noninflammatory disorders of vagina
CPT/HCPCS: 0352U; 36415; 87491; 87591; 87624; 88175

== ENCOUNTER 2023-09-22 10:03 | Outpatient (REF) | payer OTHER, SELFPAY ==
[2023-09-22 10:59] LABS: Appearance Urine Clear; Color Urine Yellow; Glucose Urine UA Negative (Negative); Leukocyte Esterase Urine Negative (Negative); Nitrite Urine Negative (Negative); Urine Blood Negative (Negative); Urine Ketones Negative (Negative); Urine Protein Negative (Neg-Trace)
[2023-09-22 11:26] LABS: Cholesterol 167 mg/dL (<200); HDL Cholesterol 43 mg/dL (>40); Iron 62 mcg/dL (30-160); LDL Cholesterol Calculated 106 mg/dL (<100); Percent Iron Saturation 21 % (15-50); Total Iron Binding Capacity 298 mcg/dL (228-428); Triglycerides 94 mg/dL (<150); Unsaturated Iron Binding 236 ug/dL
[2023-09-22 11:54] LABS: Ferritin 45 ng/mL (10-250); Thyroid Stimulating Hormone 2.02 uIU/mL (0.32-4.0); Vitamin D 25-OH Total 29.2 ng/mL (>30)
== END 2023-09-22 10:04 | disposition home or self-care (01) ==
LOC: HO.LAB 10:03
PROVIDERS: PCP Internal Medicine; Visit Provider Internal Medicine
DX: E78.00 Pure hypercholesterolemia, unspecified (principal); R39.9 Unspecified symptoms and signs involving the genitourinary system
CPT/HCPCS: 36415; 80061; 81003; 82306; 82728; 83540; 84439; 84443

== ENCOUNTER 2023-09-23 10:33 | Outpatient (AMB) | payer OTHER, SELFPAY ==
--- NOTE | 2023-09-23 11:18 | AM.OFFVISNUR ---
Intake Visit Reasons: MMR Allergies No Known Allergies Allergy (Verified 09/21/23 09:36) Assessment & Plan Assessment & Plan Orders: Orders MMR Immunization Today Z23 - Encounter for immunization Medications: New M-M-R II (PF) (measles,mumps,rubella vacc(PF)) 0.5 mL subcut ONCE 1 ea 0RF NS Z23 - Encounter for immunization
== END 2023-09-23 11:21 | disposition home or self-care (01) ==
PROVIDERS: PCP Internal Medicine; Visit Provider Internal Medicine
DX: Z23 Encounter for immunization (principal)
CPT/HCPCS: 90471; 90707

== ENCOUNTER 2023-10-30 10:50 | Outpatient (AMB) | payer OTHER, SELFPAY ==
[2023-10-30 11:00] VITALS: BP 122/80; PULSE 97; O2SAT 97; BMI 34.2
--- NOTE | 2023-10-30 11:00 | MHC.PC.OV ---
Vital Signs 10/30/23 11:00 Height 5 ft 3 in Weight 193 lb BMI 34.2 BP 122/80 Blood Pressure Location Lt brachial Position Sitting Pulse 97 Pulse Source Pulse Oximeter Pulse Oximetry (%) 97 Oxygen Delivery Method Room Air Intake Visit Reasons: Hypertension - see comments Allergies No Known Allergies Allergy (Verified 10/30/23 11:00) Tobacco use date assessed: 04/10/23 Dental Screening Dental Screen Date: 04/10/23 HPI Hypertension - see comments HPI Details 48-year-old obese female with anemia of chronic disease hypertension hypothyroid generalized anxiety disorder and hypercholesterolemia last seen in 04/07/2023 for physical exam. Patient's colonoscopy is up-to-date 02/04/2022 mammogram up-to-date 04/07/2023. Review of the notes was seen by hematology oncology for the iron deficiency anemia continued monitoring advised. Patient complains of knee pain and deny any fall. This has been a complaint before and specially on going up a flight of stairs. Discussed with the patient that she does have arthritis and discussed about pain control with this as for blood pressure blood pressure is under control also noted on the right arm to have some itchy area has been placing lotion with partial relief and would like to get some treatment. [facility] Medical History (Updated 10/30/23 @ 11:22 by Stanley Contreras MD) Pre-employment health screening examination Women's annual routine gynecological examination Breast cancer screening by mammogram [place]igo History of kidney stones Family history of colon cancer Colon cancer screening Vitamin D deficiency Obesity (BMI 30-39.9) Anxiety Iron deficiency anemia Anemia HTN (hypertension) Hypothyroid PKD (polycystic kidney disease) Surgical History Hx of cystoscopy Hx of colonoscopy No pertinent past surgical history Family History Mother Breast cancer Maternal Aunt Breast cancer IBS (irritable bowel syndrome) Maternal Aunt Breast cancer Family/Other Breast cancer Family/Other Breast cancer Sister Colon cancer Cervical cancer Maternal Uncle Heart attack Brother Diabetes Brother Diabetes Other Mental health problem Social History Household Members: Family Household Members Other:: brother Housing: Apartment Are you a primary day care home provider to a significant other at home: No Do you presently have visiting nurse or other home services: No Alcohol intake: former Comment: 2012 quit Patient Tobacco Use Status: Never used Tobacco Tobacco use type: Cigarette e-Cigarette/Vaping Use: Never Used Second Hand Smoke Exposure: No service: No Current occupational status: employed Cognitive needs: No Hearing needs: No Vision needs: Yes Female Reproductive History Menstrual Age of Menarche: 13 Questionnaire PHQ-9 Over the last 2 weeks, how often have you been bothered by any of the following problems? 1. Little interest or pleasure in doing things: not at all 2. Feeling down, depressed, or hopeless: not at all 3. Trouble falling or staying asleep, or sleeping too much: nearly every day 4. Feeling tired or having little energy: not at all 5. Poor appetite or overeating: not at all 6. Feeling bad about yourself - or that you are a failure or have let yourself or your family down: not at all 7. Trouble concentrating on things, such as reading the newspaper or watching television: not at all 8. Moving or speaking so slowly that other people could have noticed. Or the opposite - being so fidgety or restless that you have been moving around a lot more than usual: not at all 9. Thoughts that you would be better off or of hurting yourself in some way: not at all Total score: 3 Depression Screening Interpretation: Negative Depression Screening Done: Yes Source: Developed by Drs. Brian Faust, Nighat Otto, Mickey Calderon and colleagues, with an educational maya from [employer]. Thrive Questionnaire Date Thrive assessed: 04/10/23 AUDIT C Alcohol Use Questionnaire (AUDIT-C) 1. How often do you have a drink containing alcohol?: Never 3. How often do you have six or more drinks on one occasion?: Never Total Score: 0 Score Reviewed/Action Taken: Yes AMANDA-7 AMB Questionnaire AMANDA-7 Date AMANDA - 7 assessed: 04/10/23 Source: Developed by Nighat Mosley Kurt Kroenke and colleagues, with an educational maya from [employer]. Physical exam (Primary Care) Vital Signs: Last Vital Signs Pulse 97 10/30/23 11:00 BP 122/80 10/30/23 11:00 Pulse Ox 97 10/30/23 11:00 Oxygen Delivery Method Room Air 10/30/23 11:00 BMI result Body Mass Index 34.2 Tobacco/Smoking Status: Tobacco use Status Tobacco use date assessed 04/10/23 10/30/23 11:01 Patient Tobacco Use Status Never used Tobacco 10/30/23 11:01 Tobacco use type Cigarette 10/30/23 11:01 e-Cigarette/Vaping Use Never Used 10/30/23 11:01 PHQ-9: PHQ-9 Score PHQ-9: Total score 3 10/30/23 11:01 Depression Screening Interpretation: Negative Thrive Assessment: Date of Thrive Assessment Date Thrive assessed 04/10/23 10/30/23 11:01 Const General: alert; No acute distress Eyes Conjunctivae: conjunctivae normal Resp Auscultation: clear to auscultation bilaterally Cardio Rate: regular rate Rhythm: regular rhythm GI Inspection: Yes normal to inspection Extrem General: Yes normal to inspection and No edema Assessment and Plan Assessment & Plan (1) Iron deficiency anemia: Code(s): D50.9 - Iron deficiency anemia, unspecified Qualifiers: Iron deficiency anemia type: chronic blood loss Qualified Code(s): D50.0 - Iron deficiency anemia secondary to blood loss (chronic) Plan: Patient has seen hematology oncology continued monitoring of blood count. Stable (2) Hypercholesterolemia: Code(s): E78.00 - Pure hypercholesterolemia, unspecified Plan: Avoid fried foods, chicken skin, eggs, butter margarine, pastries and meat. Be it pork or beef they have a lot of cholesterol LDL goal of less than 130 and triglyceride of less than 150. (3) Generalized anxiety disorder: Comment: Counseling declined referral July 2021 Code(s): F41.1 - Generalized anxiety disorder Plan: Continue with present medication as needed (4) HTN (hypertension): Code(s): I10 - Essential (primary) hypertension Qualifiers: Hypertension type: essential hypertension Qualified Code(s): I10 - Essential (primary) hypertension Plan: Continue with blood pressure medication. Decrease salt intake and exercise on lisinopril 10 mg once a day (5) Hypothyroid: Code(s): E03.9 - Hypothyroidism, unspecified Qualifiers: Hypothyroidism type: acquired Qualified Code(s): E03.9 - Hypothyroidism, unspecified Plan: Continue with thyroid medication (6) Obesity (BMI 30-39.9): Code(s): E66.9 - Obesity, unspecified Plan: Diet and exercise (7) Osteoarthritis of right knee: Code(s): M17.11 - Unilateral primary osteoarthritis, right knee Plan: Discussed about conservative management with pain control as well as losing weight which would help this. (8) Eczema: Code(s): L30.9 - Dermatitis, unspecified Plan: Triamcinolone given and was advised to use sparingly no more than 14 days. Medications: New triamcinolone acetonide 0.5% 1 appl topical BID 30 grams 0RF L30.9 - Dermatitis, unspecified diclofenac sodium 1% (Arthritis Pain (diclofenac)) apply to single knee, ankle, foot; for foot includes sole/toes/top of foot 4 grams topical QID 200 grams 1RF M17.11 - Unilateral primary osteoarthritis, right knee Coding Level of Care Code Est Pt Level 4 (47049) Diagnoses Iron deficiency anemia due to chronic blood loss D50.0 Iron deficiency anemia type: chronic blood loss Hypercholesterolemia E78.00 Generalized anxiety disorder F41.1 Essential hypertension I10 Hypertension type: essential hypertension Acquired hypothyroidism E03.9 Hypothyroidism type: acquired Obesity (BMI 30-39.9) E66.9 Osteoarthritis of right knee M17.11 Eczema L30.9
== END 2023-10-30 13:43 | disposition home or self-care (01) ==
PROVIDERS: PCP Internal Medicine; Visit Provider Internal Medicine
DX: D50.0 Iron deficiency anemia secondary to blood loss (chronic) (principal); E78.00 Pure hypercholesterolemia, unspecified; F41.1 Generalized anxiety disorder; I10 Essential (primary) hypertension; E03.9 Hypothyroidism, unspecified; M17.11 Unilateral primary osteoarthritis, right knee; L30.9 Dermatitis, unspecified
CPT/HCPCS: 99214

== ENCOUNTER 2024-04-04 10:42 | Outpatient (REF) | payer OTHER, SELFPAY ==
[2024-04-04 11:40] LABS: Appearance Urine Turbid; Color Urine Yellow; Glucose Urine UA Negative (Negative); Leukocyte Esterase Urine Large (3+) (Negative); Nitrite Urine Positive (Negative); PH 5.5 (5.0-9.0); UMIC TRIGGER UACC YES; Urine Blood Large (3+) (Negative); Urine Ketones Negative (Negative); Urine Protein 100 (2+) mg/dL (Neg-Trace)
[2024-04-04 11:51] LABS: Bacteria Urine 4+ (None Seen); UACC Culture Trigger YES; WBC Urine >50 /HPF (0-5)
== END 2024-04-04 10:43 | disposition home or self-care (01) ==
LOC: HO.LAB 10:42
PROVIDERS: PCP Internal Medicine; Visit Provider Internal Medicine
DX: R30.0 Dysuria (principal)
CPT/HCPCS: 81001; 87086; 87088; 87186

== ENCOUNTER 2024-04-15 09:55 | Outpatient (AMB) | payer OTHER, SELFPAY ==
[2024-04-15 09:58] VITALS: BP 128/76; PULSE 86; O2SAT 98; BMI 32.6
--- NOTE | 2024-04-15 09:58 | A.OFFPC_ITS ---
Vital Signs 04/15/24 09:58 Height 5 ft 3 in Weight 184 lb BMI 32.6 BP 128/76 Blood Pressure Location Lt brachial Position Sitting Pulse 86 Pulse Source Pulse Oximeter Pulse Oximetry (%) 98 Oxygen Delivery Method Room Air Intake Visit Reasons: PE Allergies No Known Allergies Allergy (Verified 04/15/24 09:59) Medication List - Last Reconciled 04/15/24 by Stanley Contreras MD blood pressure monitor (Blood Pressure Kit) As directed diclofenac sodium 1% (Arthritis Pain (diclofenac)) 4 grams topical QID ferrous sulfate 325 mg PO BID hydrocortisone 2.5% (Proctosol HC) 1 appl NC BID PRN levothyroxine 25 mcg PO DAILY@0600 lisinopril 10 mg PO DAILY lorazepam 0.5 mg PO DAILY PRN multivitamin 1 tab PO DAILY triamcinolone acetonide 0.5% 1 appl topical BID Tobacco use date assessed: 04/15/24 Dental Screening Dental Screen Date: 04/15/24 Did you have a dental visit in the last 12 months?: Yes Did you have a dental problem in the last 6 months where you did not have access to dental care?: No Was dental information given to patient?: Patient has dentist [facility] Medical History (Updated 01/18/24 @ 10:52 by Jeff Em MD) Pre-employment health screening examination Women's annual routine gynecological examination Breast cancer screening by mammogram [place] History of kidney stones Family history of colon cancer Colon cancer screening Vitamin D deficiency Obesity (BMI 30-39.9) Anxiety Iron deficiency anemia Anemia HTN (hypertension) Hypothyroid PKD (polycystic kidney disease) Surgical History Hx of cystoscopy Hx of colonoscopy No pertinent past surgical history Family History Mother Breast cancer Maternal Aunt Breast cancer IBS (irritable bowel syndrome) Maternal Aunt Breast cancer Family/Other Breast cancer Family/Other Breast cancer Sister Colon cancer Cervical cancer Maternal Uncle Heart attack Brother Diabetes Brother Diabetes Other Mental health problem Social History Household Members: Family Household Members Other:: brother Housing: Apartment Are you a primary anesthesiologist and critical care to a significant other at home: No Do you presently have visiting nurse or other home services: No Alcohol intake: former Comment: 2012 quit Patient Tobacco Use Status: Never used Tobacco Tobacco use type: Cigarette e-Cigarette/Vaping Use: Never Used Second Hand Smoke Exposure: No service: No Current occupational status: employed Cognitive needs: No Hearing needs: No Vision needs: Yes Female Reproductive History Menstrual Age of Menarche: 13 Questionnaire PHQ-9 Over the last 2 weeks, how often have you been bothered by any of the following problems? 1. Little interest or pleasure in doing things: not at all 2. Feeling down, depressed, or hopeless: not at all 3. Trouble falling or staying asleep, or sleeping too much: not at all 4. Feeling tired or having little energy: not at all 5. Poor appetite or overeating: not at all 6. Feeling bad about yourself - or that you are a failure or have let yourself or your family down: not at all 7. Trouble concentrating on things, such as reading the newspaper or watching television: not at all 8. Moving or speaking so slowly that other people could have noticed. Or the opposite - being so fidgety or restless that you have been moving around a lot more than usual: not at all 9. Thoughts that you would be better off or of hurting yourself in some way: not at all Total score: 0 Depression Screening Interpretation: Negative Depression Screening Done: Yes 98538 - PHQ-9 Billing: Yes Source: Developed by Drs. Brian Faust, Nighat Otto, Mickey Calderon and colleagues, with an educational maya from [employer]. Thrive Questionnaire Date Thrive assessed: 04/08/24 I am a: Patient What is your living situation today?: I have a steady place to live Within the past 12 months, did the food you bought not last and you didn't have the money to get more?: Never true Within the past 12 months, did you worry whether your food would run out before you got money to buy more?: Never true Do you have trouble paying for medicines?: No Do you have trouble getting transportation to medical appointments?: No Do you have trouble paying your heating and electricity bill?: No Do you have trouble taking care of your child, family member or friend?: No Do you have trouble with day-to-day activities such as bathing, preparing meals, shopping, managing finances, etc.?: No Are you currently unemployed and looking for a job?: No Are you interested in more education?: No Please select the resources that you would like help with: None Currently or been in a relationship where the following occur: No concerns reported THRIVE Score: 0 AUDIT C Alcohol Use Questionnaire (AUDIT-C) 1. How often do you have a drink containing alcohol?: Never 3. How often do you have six or more drinks on one occasion?: Never Total Score: 0 AMANDA-7 AMB Questionnaire AMANDA-7 Date AMANDA - 7 assessed: 04/15/24 Feeling nervous, anxious, or on edge: 0 = Not at all Not being able to stop or control worryin = Not at all Worrying too much about different things: 0 = Not at all Trouble relaxin = Not at all Being so restless that it is hard to sit still: 0 = Not at all Becoming easily annoyed or irritable: 0 = Not at all Feeling afraid as if something awful might happen: 0 = Not at all Total AMANDA-7 score (0-4 normal; 5-9 mild; 10-14 moderate; 15-21 severe): 0 Source: Developed by Drs. Brian Faust, Nighat Otto, Mickey Calderon and colleagues, with an educational maya from [employer]. Review of Systems Const Denies poor appetite and Denies weakness Eyes Denies no additional complaints ENT Reports Normal hearing present, Denies dizziness, Denies nasal congestion, Denies tinnitus and Denies sore throat Card Denies chest pain, Denies syncope, Denies rapid heart rate and Denies dyspnea Resp Denies cough and Denies dyspnea GI Denies change in stool character, Reports constipation, Denies diarrhea, Denies nausea and Denies vomiting Denies urinary frequency, Denies difficulty voiding and Denies dysuria Neuro Reports Normal hearing present, Denies confusion, Denies dizziness, Denies syncope and Denies weakness Psych Denies confusion Physical exam (Primary Care) Vital Signs: Last Vital Signs Pulse 86 04/15/24 09:58 BP 128/76 04/15/24 09:58 Pulse Ox 98 04/15/24 09:58 Oxygen Delivery Method Room Air 04/15/24 09:58 BMI result Body Mass Index 32.6 Tobacco/Smoking Status: Tobacco use Status Tobacco use date assessed 04/15/24 04/15/24 10:00 Patient Tobacco Use Status Never used Tobacco 04/15/24 10:00 Tobacco use type Cigarette 04/15/24 10:00 e-Cigarette/Vaping Use Never Used 04/15/24 10:00 PHQ-9: PHQ-9 Score PHQ-9: Total score 0 04/15/24 10:38 Depression Screening Interpretation: Negative Thrive Assessment: Date of Thrive Assessment Date Thrive assessed 04/08/24 04/15/24 10:00 Currently or been in a relationship where the following occur: No concerns reported Const General: No confusion Orientation/consciousness: No confusion HENMT Head: Yes normocephalic Ears: external ears normal and TM's normal bilaterally Face and sinus: Yes normal facial exam Mouth: moist mucous membranes Throat: Yes tonsils normal Eyes Conjunctivae: conjunctivae normal Pupils: Equal, round and reactive pupils present and Pupil accommodation reflex normal Direct Ophthalmoscopy: normal light reflex Neck Neck: No lymphadenopathy Thyroid: Thyroid normal Chest Chest palpation & inspection: normal inspection of the chest Resp Effort & Inspection: normal respiratory effort and no audible wheezes Auscultation: clear to auscultation bilaterally, no crackles, no wheezes and lung sounds not diminished Cardio Rate: regular rate Rhythm: regular rhythm Peripheral pulses: radial pulses present and dorsalis pedis present GI Palpation (GI): no masses Auscultation: normal bowel sounds and normoactive bowel sounds Rectal Exam - Female: deferred Skin General skin exam: no rashes or lesions noted Rashes: no rashes Neuro General: No confusion Cranial nerves: Yes Equal, round and reactive pupils present and Yes Normal hearing present Cognition (Neuro): normal cognition Gait exam (Neuro): Normal gait present Motor exam (neuro): 5/5 motor strength present throughout Deep tendon reflexes (DTR's): Right brachioradialis reflex intensity grade: 2+, Left brachioradialis reflex intensity grade: 2+, Right patellar reflex intensity grade: 2+ and Left patellar reflex intensity grade: 2+ Extrem General: No edema Coding Level of Care Code Est Pt Prev Care 40-64y(33861) Diagnoses Annual physical exam Z00.00 Anemia of chronic disease D63.8 Iron deficiency anemia due to chronic blood loss D50.0 Iron deficiency anemia type: chronic blood loss Acquired hypothyroidism E03.9 Hypothyroidism type: acquired Essential hypertension I10 Hypertension type: essential hypertension Obesity (BMI 30-39.9) E66.9 Hypercholesterolemia E78.00 Additional Codes PHQ-9 - 14176 - PHQ-9 Billing: Yes ([id number]) Assessment & Plan Assessment & Plan (1) Annual physical exam: Code(s): Z00.00 - Encounter for general adult medical examination without abnormal findings Category: Medical Plan: Patient is advised to eat healthy, keep well hydrated, keep active and have adequate sleep. (2) Anemia of chronic disease: Code(s): D63.8 - Anemia in other chronic diseases classified elsewhere Category: Medical Plan: Continue to monitor patient has seen hematology oncology (3) Iron deficiency anemia: Code(s): D50.9 - Iron deficiency anemia, unspecified Category: Medical Qualifiers: Iron deficiency anemia type: chronic blood loss Qualified Code(s): D50.0 - Iron deficiency anemia secondary to blood loss (chronic) Plan: Continue to monitor patient has seen hematology oncology (4) Hypothyroid: Code(s): E03.9 - Hypothyroidism, unspecified Category: Medical Qualifiers: Hypothyroidism type: acquired Qualified Code(s): E03.9 - Hypothyroidism, unspecified Plan: Continue with thyroid medication 10/06/2023 last blood work (5) HTN (hypertension): Code(s): I10 - Essential (primary) hypertension Category: Medical Qualifiers: Hypertension type: essential hypertension Qualified Code(s): I10 - Essential (primary) hypertension Plan: Continue with blood pressure medication. Decrease salt intake and exercise on lisinopril 10 mg once a day (6) Obesity (BMI 30-39.9): Code(s): E66.9 - Obesity, unspecified Category: Medical Plan: Diet and exercise (7) Hypercholesterolemia: Code(s): E78.00 - Pure hypercholesterolemia, unspecified Category: Medical Plan: Avoid fried foods, chicken skin, eggs, butter margarine, pastries and meat. Be it pork or beef they have a lot of cholesterol LDL goal of less than 130 and triglyceride of less than 150. [place] blood work is normal Plan History of Present Illness The patient is a 48-year-old female presenting for a wellness examination. She has managed essential hypertension with lisinopril, and her blood pressure readings have been stable. Her hypothyroidism is well-controlled with levothyroxine, and recent weight loss has been acknowledged. While the weight reduction has been steady, leg discomfort associated with the loss has been reported by the patient. Her medical history highlights obesity, nephrolithiasis, and polycystic kidney disease. 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 Most recent lab values indicate a hemoglobin level of 11.9 g/dL. Attention has been focused on managing hyperc holesterolemia, aiming for an LDL target of below 130 mg/dL, with recent levels recorded at 106 mg/dL. The patient lives with generalized anxiety disorder for which lorazepam is taken on an as-needed basis. She maintains dietary supplement intake with iron and multivitamins. No surgical history was reported, and significant family history includes colon and breast cancers. Routine cancer screenings are up-to-date, with a colonoscopy most recently done in January 2022; a mammogram is planned in alignment with familial breast cancer risks. The patient reports recent exposure to hair dye resulting in irritation of the left eye, prompting further evaluation today. Health Maintenance - Blood pressure controlled on lisinopril 10 mg daily. - Hypothyroidism managed with levothyroxine 25 mcg daily. - Weight management discussed; noted weight loss of 11 pounds. - Cholesterol management: LDL last recorded at 106 mg/dL, September 2023. - Mammogram scheduled for April 2024, considering family history of breast cancer. - Last colonoscopy performed January 2022. - Hematology follow-up for anemia of chronic disease and iron deficiency. - Vaccination status: Up-to-date with tetanus; declined flu vaccination. - Monitoring of electrolytes and renal function normal. Social History - Denies use of alcohol, tobacco, and recreational drugs. - Patient does not report any allergies to medications. - Living situation includes family history with noted cancer occurrences. - No current employment, family planning, or housing issues discussed. Review of Systems - General: Reports recent weight loss. - Bowel: Denies changes in bowel habits. - Urinary: Denies dysuria, wakes once or twice at night to urinate. - Eyes: Reports left eye irritation from hair dye exposure. Physical Exam General: Cooperative, healthy appearing, comfortable, no acute distress and well developed Orientation: Patient oriented x3 Limitations: No limitations Head: Normal to inspection Ears: Hearing grossly normal bilaterally Nose: Normal external nose present Face and sinus: Normal facial exam Eyes: Appearance normal, both eyes and all related structures; patient requested left eye check due to hair dye incident Neck: Normal visual inspection and Yes full ROM Respiratory: Normal respiratory effort and able to speak in complete sentences. Clear to auscultation bilaterally Cardiovascular: Regular rate and rhythm. Normal S1 and S2 GI: Normal to inspection. Soft to palpation and nontender Skin: No rashes or lesions noted Neuro: Patient oriented x3 Extremities: Normal to inspection; patient reports leg discomfort and achiness, especially when going up stairs Results - Labs: Hemoglobin at 11.9 g/dL in January 2024; LDL at 106 mg/dL in September 2023; vitamin D noted as mildly low. - Normal renal and liver function reported. Plan Blood pressure management will persist with lisinopril. Thyroid stability on current levothyroxine dosage is satisfactory. Weight monitoring remains essential, correlated to reported leg discomfort. Hypercholesterolemia management targets an LDL below 130 mg/dL, maintained through diet and lifestyle advice. Anemia of chronic disease with an iron deficiency remains closely followed by hematology. Screening mammogram is planned in consideration of family history. Immunizations are largely current; however, the patient opted not to receive the flu vaccine. Medication management will include renewing lorazepam prescriptions. Ongoing use of multivitamins with iron continues. Patient was informed and verbally consented to the use of an ambient scribe for clinic note documentation during this visit. Discussion Notes Patient Instructions - Continue medication as prescribed: lisinopril 10 mg, levothyroxine 25 mcg, multivitamins, and iron supplements. - Schedule and complete mammogram in April 2024. - Monitor blood pressure at home regularly. - Maintain a healthy diet for weight and cholesterol management. - Refill lorazepam and use as needed for anxiety. - Follow up with supervisor [employer] as per current schedule. - Return for follow-up in October 2024. Orders: Orders Complete Blood Count Auto Diff 6 Months E03. - Hypothyroidism, unspecified Comprehensive Met. Panel 6 Months E03. - Hypothyroidism, unspecified Thyroid Stimulating Hormone 6 Months E03.9 - Hypothyroidism, unspecified Vitamin D 25-OH Total 6 Months E03.9 - Hypothyroidism, unspecified Free T4 (Free Thyroxine) 6 Months E03.9 - Hypothyroidism, unspecified Lipid Panel 6 Months E03.9 - Hypothyroidism, unspecified, E78.00 - Pure hypercholesterolemia, unspecified Vitamin B12 and Folate 6 Months E03.9 - Hypothyroidism, unspecified Hemoglobin A1c 6 Months E03.9 - Hypothyroidism, unspecified Ferritin 6 Months E03.9 - Hypothyroidism, unspecified IRON PROFILE 6 Months E03.9 - Hypothyroidism, unspecified Reticulocyte Count 6 Months E03.9 - Hypothyroidism, unspecified
--- OUTSIDE RECORDS SUMMARY | 2024-04-15 10:55 | XMS_ITS | Clinical Summary ---
Author Organization [facility] Facility Address [address] [place] [address] Care Team Providers Care Pharmacist Helper Name Role Phone Stanley Contreras MD Primary Care Provider [phone] Medications Multiple Vitamin (MULTIVITAMIN ADULT PO) Take 1 capsule by mouth 1 (one) time each day Active ferrous sulfate 325 (65 Fe) MG tablet Take 1 tablet by mouth 3 Active lisinopril 10 MG tablet Take 1 tablet by mouth 1 (one) time each day 5 Active meclizine (ANTIVERT) 25 MG tablet TAKE 1 TABLET BY MOUTH TWICE A DAY NEEDED FOR DIZZINESS 3 Active levothyroxine (SYNTHROID, LEVOTHROID) 25 MCG tablet Take 1 tablet (25 mcg total) by mouth 1 (one) time each day in the morning 30 tablet 3 Active Active Problems Problem Noted Date Diagnosed Date Anemia of chronic disease 11/06/20222022 Hypertensive renal disease 11/06/202211/06 Adult polycystic kidney 11/06/2022 11/07/19 23 Family History Medical History Relation Comments Hypertension Mother Kidney disease Mother Diabetes Sibling 1 Kidney disease Sibling 2 Relation Status Comments Father Unknown Mother Unknown Sibling 1 Sibling 2 Social History Tobacco Use Types Packs/Day Years Used Date Smoking Tobacco: Never Smokeless Tobacco: Never Tobacco Cessation:Counseling Given: Not Answered Alcohol Use Standard Drinks/Week Comments Never 0 (1 standard drink = 0.6 oz pure alcohol) Alcoholic Drinks/day: Occasional social drink Comments Unknown Sex and Gender Information Value Date Recorded Sex Assigned at Not on file Legal Sex Female 5:00 PM EST Gender Identity Not on file Sexual Orientation Not on file Last Filed Vital Signs Vital Sign Reading Time Taken Comments Blood Pressure 132/92 11/06/2022 2:12 PM EDT Pulse 98 11/06/2022 2:12 PM EDT Temperature - - Respiratory Rate - - Oxygen Saturation 99% 11/06/2022 2:12 PM EDT Inhaled Oxygen Concentration - - Weight 84.6 kg (186 lb 6.4 oz) 11/06/2022 2:12 P M EDT Height 160 cm (5' 3 ) 11/06/2022 2:12 PM EDT Body Mass Index 33.02 11/06/2022 2:12 PM EDT Plan of Treatment Health Maintenance Due Date Last Done Comments Breast Cancer Screening 1973 Hepatitis B Vaccine (1 of 3 - 19+ 3-dose series) 1992 Colorectal Cancer Screening: Annual FOBT 2022 Colorectal Cancer Screening: Colonoscopy 2022 Colorectal Cancer Screening: Sigmoidoscopy 2022 Influenza Vaccine (#1) 2023 Pneumococcal Vaccine: Pediat rics (0 to 5 Years) and At-Risk Patients (6 to 64 Years) Aged Out No longer eligible b ased on patient's age to complete this topic Insurance [facility] Care Teams Pharmacist Helper Relationship Specialty Start Date End Date Stanley Contreras MD [address] [place], [place] PCP - General 02/27/20
--- OUTSIDE RECORDS SUMMARY | 2024-04-15 10:55 | XMS_ITS | Encounter Summary ---
Author Organization [facility] Address [address] [facility] [address] [place] [address] Phone Care Team Providers Care Photovoltaic Panel Installer Name Role Phone Stanley Contreras MD Primary Care Provider [phone] Reason for Visit * Reason Comments Med Refill Encounter Details Date Type Department Care Team (Late st Contact Info) Description 12/06/2022 Refill [facility] [address] [place] [id number] Terrance Card MD Social History Tobacco Use Types Packs/Day Years Used Date Smoking Tobacco: Never Smokeless Tobacco: Never Alcohol Use Standard Drinks/Week Comments Never 0 (1 standard drink = 0.6 oz pure alcohol) Alcoholic Drinks/day: Occasional social drink Comments Unknown Sex and Gender Information Value Date Recorded Sex Assigned at Not on file Legal Sex Female 5:00 PM EST Gender Identity Not on file Sexual Orientation Not on file documented as of this encounter Plan of Treatment Not on file documented as of this encounter Visit Diagnoses Not on filedocumented in this encounter Care Teams Photovoltaic Panel Installer Relationship Specialty Start Date End Date Stanley Contreras MD [facility] [address] [place] PCP - General 02/27/20 documented as of this encounter
== END 2024-04-15 10:52 | disposition home or self-care (01) ==
PROVIDERS: PCP Internal Medicine; Visit Provider Internal Medicine
DX: Z00.00 Encounter for general adult medical examination without abnormal findings (principal); D63.8 Anemia in other chronic diseases classified elsewhere; Z68.32 Body mass index [BMI] 32.0-32.9, adult; E66.9 Obesity, unspecified; D50.0 Iron deficiency anemia secondary to blood loss (chronic); E03.9 Hypothyroidism, unspecified; I10 Essential (primary) hypertension; E78.00 Pure hypercholesterolemia, unspecified

== ENCOUNTER → 2024-04-15 09:55 | Outpatient (BNVA) | payer OTHER, SELFPAY | PROVIDERS: PCP Internal Medicine; Visit Provider Internal Medicine | DX: Z00.00 Encounter for general adult medical examination without abnormal findings (principal); D50.0 Iron deficiency anemia secondary to blood loss (chronic); D63.8 Anemia in other chronic diseases classified elsewhere; E03.9 Hypothyroidism, unspecified; I10 Essential (primary) hypertension; E66.9 Obesity, unspecified; Z68.32 Body mass index [BMI] 32.0-32.9, adult; E78.00 Pure hypercholesterolemia, unspecified; Z79.899 Other long term (current) drug therapy | CPT/HCPCS: 96127 ==

== ENCOUNTER 2024-04-29 13:48 | Outpatient (AMB) | payer OTHER, SELFPAY ==
--- NOTE | 2024-04-29 14:16 | A.OFFPC_ITS ---
Vital Signs 04/29/24 14:17 Height 5 ft 3 in Weight 181 lb 8 oz BMI 32.1 BP 102/62 Blood Pressure Location Lt brachial Position Sitting Pulse 88 Pulse Source Pulse Oximeter Temp 97.3 F Temp Source Temporal Artery Scan Pulse Oximetry (%) 98 Oxygen Delivery Method Room Air Intake Visit Reasons: lower back pain Intake Note: Patient is here to follow up on lower back pain. Field Project Manager Required: No Community Engagement Specialist: Not Required per policy Accompanied by: Self / Same As Patient Allergies No Known Allergies Allergy (Verified 04/29/24 14:43) Medication List - Last Reconciled 04/29/24 by Emily Epperson PA-C blood pressure monitor (Blood Pressure Kit) As directed cyclobenzaprine 10 mg PO Q8H diclofenac sodium 1% (Arthritis Pain (diclofenac)) 4 grams topical QID ferrous sulfate 325 mg PO BID hydrocortisone 2.5% (Proctosol HC) 1 appl [place] BID PRN levothyroxine 25 mcg PO DAILY@0600 lidocaine 5% (Lidoderm) 1 patch topical DAILY lisinopril 10 mg PO DAILY lorazepam 0.5 mg PO DAILY PRN meloxicam 15 mg PO DAILY multivitamin 1 tab PO DAILY triamcinolone acetonide 0.5% 1 appl topical BID Tobacco use date assessed: 04/29/24 Dental Screening Dental Screen Date: 04/15/24 [facility] Medical History (Updated 04/29/24 @ 14:43 by Emily Epperson PA-C) Lumbar strain Pre-employment health screening examination Women's annual routine gynecological examination Breast cancer screening by mammogram Vertigo History of kidney stones Family history of colon cancer Colon cancer screening Vitamin D deficiency Obesity (BMI 30-39.9) Anxiety Iron deficiency anemia Anemia HTN (hypertension) Hypothyroid PKD (polycystic kidney disease) Surgical History Hx of cystoscopy Hx of colonoscopy No pertinent past surgical history Family History Mother Breast cancer Maternal Aunt Breast cancer IBS (irritable bowel syndrome) Maternal Aunt Breast cancer Family/Other Breast cancer Family/Other Breast cancer Sister Colon cancer Cervical cancer Maternal Uncle Heart attack Brother Diabetes Brother Diabetes Other Mental health problem Social History Household Members: Family Household Members Other:: brother Housing: Apartment Are you a primary school childcare attendant to a significant other at home: No Do you presently have visiting nurse or other home services: No Alcohol intake: former Comment: 2012 quit Patient Tobacco Use Status: Never used Tobacco Tobacco use type: Cigarette e-Cigarette/Vaping Use: Never Used Second Hand Smoke Exposure: No service: No Current occupational status: employed Cognitive needs: No Hearing needs: No Vision needs: Yes Female Reproductive History Menstrual Age of Menarche: 13 Questionnaire Thrive Questionnaire Date Thrive assessed: 04/08/24 I am a: Patient What is your living situation today?: I have a steady place to live Within the past 12 months, did the food you bought not last and you didn't have the money to get more?: Never true Within the past 12 months, did you worry whether your food would run out before you got money to buy more?: Never true Do you have trouble paying for medicines?: No Do you have trouble getting transportation to medical appointments?: No Do you have trouble paying your heating and electricity bill?: No Do you have trouble taking care of your child, family member or friend?: No Do you have trouble with day-to-day activities such as bathing, preparing meals, shopping, managing finances, etc.?: No Are you currently unemployed and looking for a job?: No Are you interested in more education?: No Please select the resources that you would like help with: None Currently or been in a relationship where the following occur: No concerns reported THRIVE Score: 0 AMANDA-7 AMB Questionnaire AMANDA-7 Date AMANDA - 7 assessed: 04/15/24 Source: Developed by Drs. Brian Faust, Nighat Otto, Mickey Calderon and colleagues, with an educational maya from [employer]. Physical exam (Primary Care) Vital Signs: Last Vital Signs Temp 97.3 F 04/29/24 14:17 Pulse 88 04/29/24 14:17 BP 102/62 04/29/24 14:17 Pulse Ox 98 04/29/24 14:17 Oxygen Delivery Method Room Air 04/29/24 14:17 BMI result Body Mass Index 32.1 Tobacco/Smoking Status: Tobacco use Status Tobacco use date assessed 04/29/24 04/29/24 14:20 Patient Tobacco Use Status Never used Tobacco 04/29/24 14:20 Tobacco use type Cigarette 04/29/24 14:20 e-Cigarette/Vaping Use Never Used 04/29/24 14:20 Thrive Assessment: Date of Thrive Assessment Date Thrive assessed 04/08/24 04/29/24 14:20 Currently or been in a relationship where the following occur: No concerns reported Coding Level of Care Code Est Pt Level 3 (66274) Diagnoses Lumbar strain S39.012A Assessment & Plan Assessment & Plan (1) Lumbar strain: Code(s): S39.012A - Strain of muscle, fascia and tendon of lower back, initial encounter Category: Medical Plan: Pt c likely muscular pain, but could be herniated disc. Neuro exam shows no deficits. Not c/w AAA/epidural abscess. Not c/w Pyelo/UTI/kidney stone/spinal fx. Not cauda equina syndrome. Imaging not currently indicated.??DC c meds and f/u. Plan Plan Patient was informed and verbally consented to the use of an ambient scribe for clinic note documentation during this visit. 1. Acute Muscle Strain Of The Back The patient presents with a muscle strain in the mid-lower back with exacerbation upon posture changes. I will initiate treatment with meloxicam, an anti-inflammatory medication to reduce pain and swelling, and prescribe a course of cyclobenzaprine to manage muscle spasms, highlighting necessary precautions with its sedative effects. Lidoderm patches will also be prescribed, considering [id number] availability. She is advised to limit physical strain and observe for any symptomatic shifts, particularly involving neurological signs. 2. History Of Nephrolithiasis The patient has a documented history of kidney stones but displays no current symptoms aligning with nephrolithiasis. Continued monitoring is suggested, without immediate intervention. I will provide instructions to return for evaluation if symptoms such as hematuria or acute flank pain arise. Discussion Notes During the visit, we discussed that the patient's presentation was consistent with an acute musculoskeletal strain. I educated the patient on the usage of prescribed medications, such as the anti-inflammatory meloxicam, and the sedative muscle relaxant, cyclobenzaprine, outlining the pros and cons of each, including potential interactions and effects on daily activity. The patient was advised that Lidoderm patches might require [id number] purchase if prescription coverage is not applicable. Return precautions were outlined for any new concerning symptoms, especially those indicative of urological issues like kidney stones, including hematuria, severe pain, or systemic symptoms like fever. Follow-up was scheduled as needed, with instructions to contact our office should symptoms unexpectedly escalate. Medications: New meloxicam 15 mg PO DAILY 30 tabs 1RF lidocaine 5% (Lidoderm) leave on most painful area for up to 12 hrs 1 patch topical DAILY 15 ea 1RF cyclobenzaprine 10 mg PO Q8H 30 tabs 1RF Patient Instructions: Patient Instructions - Take meloxicam daily as prescribed for back pain. - Use cyclobenzaprine (Flexerol) at night only, and avoid working or driving while under its effects. - Purchase Lidoderm patches [id number] if needed. - Rest and refrain from lifting or any strenuous physical activity over the weekend. - Return if experiencing fever, worsening pain, new urinary symptoms, or if concerned about any changes in symptoms. - Plan to resume work on Thursday, provided symptoms do not intensify. Scribe Plan - Not visible on output: History of Present Illness The patient is a 48-year-old female presenting with back pain that commenced last night after sitting during a hoahaoism service. She denies any inciting activities such as heavy lifting or falls from the previous day. The pain is localized to the mid-lower back and is described as an internal sensation. The patient distinguishes this pain from her previous episodes of nephrolithiasis in her left kidney. Despite a history of kidney stones, measured at 5 mm and 3 mm in size, the patient is confident this is non-urological in etiology, as there are no respective urinary symptoms like hematuria or fever. On initial morning evaluation, the pain was prominent and invasive upon sitting but has since seen mild relief throughout the day. She attributes the discomfort to a potential muscle strain, noting pain primarily when transitioning from sitting to standing. She has no recent history of similar pain, nor does she report significant changes in physical activities or routines. Social History - Employment: Not discussed - Housing: Not discussed - Family Status: Engaged with hoahaoism and daycare activities - Exercise: Not discussed - Nutritional Intake: Not discussed Review of Systems - Musculoskeletal: Reports mid-lower back pain exacerbated by sitting and standing. - Genitourinary: Denies hematuria, dysuria, and urinary frequency or urgency. - Gastrointestinal: Denies abdominal pain, nausea, vomiting. - General: Denies fever, chills. Physical Exam Appearance: Alert. Oriented X3. No acute distress. Head: Normal external exam. Normocephalic. Atraumatic. Eyes: Pupils are equal, round, and reactive to light. Extraocular movements intact. Conjunctiva and sclera normal. Eyelids normal. Ears: External auditory canal normal. Tympanic membranes normal. Throat: Pharynx normal. Uvula midline. Moist mucous membranes. Neck: Normal inspection. Neck supple. Full range of motion. No adenopathy. Thyroid Normal. No meningeal signs. No neck mass noted. Cardiovascular: Normal heart rate and rhythm. Heart sound normal. No murmurs noted. Pulses normal throughout. Respiratory: No respiratory distress. Painless inspiration. Breath sounds normal. No wheezes/rales/rhonchi noted. Chest nontender. No accessory muscle usage noted or decreased air movement noted. Abdomen: Soft and nontender. Bowel sounds normal in all 4 quadrants. No distention noted. No organomegaly noted. No visible injury noted. Back: No costovertebral angle tenderness. Full range of motion noted. Patient reports back pain, described as internal and felt when walking, but no external tenderness upon palpation. Skin: Skin warm and dry. Normal skin color. Normal skin turgor. No rashes/lesions/lacerations noted. Extremities: No lower extremity edema. Extremities exhibit normal range of motion. Extremities nontender. Neuro: Oriented X 3. No motor deficit. No sensory deficit. Reflexes normal.
[2024-04-29 14:17] VITALS: BP 102/62; PULSE 88; TEMP 36.3; O2SAT 98; BMI 32.1
--- OUTSIDE RECORDS SUMMARY | 2024-04-29 15:34 | XMS_ITS | Encounter Summary ---
Author Organization [facility] Address [address] [facility] [address] [place] [address] Phone Care Team Providers Care Asset Management Coordinator Name Role Phone Stanley Contreras MD Primary Care Provider [phone] Reason for Visit * Reason Comments Med Refill Encounter Details Date Type Department Care Team (Late st Contact Info) Description 12/06/2022 Refill [facility] [address] [place] [phone] Terrance Card MD Social History Tobacco Use [...] on filedocumented in this encounter Care Teams Asset Management Coordinator Relationship Specialty Start Date End Date Stanley Contreras MD [facility] [place] [address] [place] PCP - General 02/27/20 documented as of this encounter
--- OUTSIDE RECORDS SUMMARY | 2024-04-29 15:34 | XMS_ITS | Clinical Summary ---
Author Organization [facility] Facility Address [address] [place] [address] Care Team Providers Care Supervisor Engine Assembly Name Role Phone Stanley Contreras MD Primary Care Provider [phone] Medications Multiple Vitamin (MULTIVITAMIN ADULT PO) Take [...] patient's age to complete this topic Insurance [facility] Care Teams Supervisor Engine Assembly Relationship Specialty Start Date End Date Stanley Contreras MD [address] [place], [place] PCP - General 02/27/20
== END 2024-04-29 14:41 | disposition home or self-care (01) ==
LOC: HO.HMCH 13:49
PROVIDERS: PCP Internal Medicine; Visit Provider Physician Assistant Medical
DX: S39.012A Strain of muscle, fascia and tendon of lower back, initial encounter (principal)

== ENCOUNTER → 2024-04-29 13:48 | Outpatient (BNVA) | payer OTHER, SELFPAY | PROVIDERS: PCP Internal Medicine; Visit Provider Physician Assistant Medical ==

== ENCOUNTER 2024-05-12 10:52 | Outpatient (REF) | payer OTHER, SELFPAY ==
--- OUTSIDE RECORDS SUMMARY | 2024-05-12 14:24 | XMS_ITS | Encounter Summary ---
Author Organization [facility] Address [address] [facility] [address] [place] [address] Phone Care Team Providers Care Serology Technician Name Role Phone Stanley Contreras MD Primary Care Provider [phone] Reason for Visit * Reason Comments Med Refill Encounter Details Date Type Department Care Team (Late st Contact Info) Description 12/06/2022 Refill [facility] [address] [place] [phone] Terrance Card MD Social History Tobacco Use [...] on filedocumented in this encounter Care Teams Serology Technician Relationship Specialty Start Date End Date Stanley Contreras MD [facility] [place] [address] [place] PCP - General 02/27/20 documented as of this encounter
--- OUTSIDE RECORDS SUMMARY | 2024-05-12 14:24 | XMS_ITS | Clinical Summary ---
Author Organization [facility] Facility Address [address] [place] [id number] Care Team Providers Care Senior Facilities Manager Name Role Phone Stanley Contreras MD Primary Care Provider [phone] Medications Multiple Vitamin (MULTIVITAMIN ADULT PO) Take [...] patient's age to complete this topic Insurance [facility] Care Teams Senior Facilities Manager Relationship Specialty Start Date End Date Stanley Contreras MD [address] [place], [place] PCP - General 02/27/20
== END 2024-05-12 10:53 | disposition home or self-care (01) ==
LOC: HO.MAMMO 10:52
PROVIDERS: PCP Internal Medicine; Visit Provider Internal Medicine
DX: Z12.31 Encounter for screening mammogram for malignant neoplasm of breast (principal)
CPT/HCPCS: 77063; 77067

== ENCOUNTER → 2024-05-12 11:15 | Outpatient (BNV) | payer OTHER, SELFPAY | PROVIDERS: PCP Internal Medicine; Visit Provider Internal Medicine | DX: Z12.31 Encounter for screening mammogram for malignant neoplasm of breast (principal) | CPT/HCPCS: 77063; 77067 ==

== ENCOUNTER 2024-06-08 17:17 | Emergency (ER) | payer OTHER, SELFPAY ==
[2024-06-08 18:25] VITALS: BP 132/79; PULSE 78; RESP 18; TEMP 36.3; O2SAT 98; BMI 32.1
--- NOTE | 2024-06-08 18:29 | ED_ITS ---
HPI - Abdominal Pain General Chief Complaint: General Medical Stated Complaint: back pain, ?kidney pain Related Data Home Medications ?Medication ?Instructions ?Recorded ?Confirmed multivitamin 1 tab PO DAILY 03/30/20 04/29/24 Previous Rx's ?Medication ?Instructions ?Recorded hydrocortisone 2.5 % topical cream 1 appl [place] BID PRN itching #30 grams 08/01/21 with perineal applicator (Proctosol HC) blood pressure monitor (Blood #1 ea 04/03/22 Pressure Kit) ferrous sulfate 325 mg (65 mg 325 mg PO BID #60 tabs 04/10/23 iron) tablet diclofenac sodium 1 % topical gel 4 g topical QID #200 grams 10/30/23 (Arthritis Pain (diclofenac)) triamcinolone acetonide 0.5 % 1 appl topical BID #30 grams 10/30/23 topical cream lisinopril 10 mg tablet 10 mg PO DAILY #90 tabs 11/16/23 levothyroxine 25 mcg tablet 25 mcg PO DAILY@0600 #90 tabs 02/15/24 cyclobenzaprine 10 mg tablet 10 mg PO Q8H #30 tabs 04/29/24 lidocaine 5 % topical patch 1 patch topical DAILY #15 ea 04/29/24 (Lidoderm) meloxicam 15 mg tablet 15 mg PO DAILY #30 tabs 04/29/24 lorazepam 0.5 mg tablet 0.5 mg PO DAILY PRN anxiety #14 05/04/24 tabs Allergies Allergy/AdvReac Type Severity Reaction Status Date / Time No Known Allergies Allergy Verified 06/09/24 09:20 [facility] Past Medical History Medical History Lumbar strain Pre-employment health screening examination Women's annual routine gynecological examination Breast cancer screening by mammogram Vertigo History of kidney stones Family history of colon cancer Colon cancer screening Vitamin D deficiency Obesity (BMI 30-39.9) Anxiety Iron deficiency anemia Anemia HTN (hypertension) Hypothyroid PKD (polycystic kidney disease) Surgical History Hx of cystoscopy Hx of colonoscopy No pertinent past surgical history Family History Family History Mother Breast cancer Maternal Aunt Breast cancer IBS (irritable bowel syndrome) Maternal Aunt Breast cancer Family/Other Breast cancer Family/Other Breast cancer Sister Colon cancer Cervical cancer Maternal Uncle Heart attack Brother Diabetes Brother Diabetes Other Mental health problem Social History Social History Household Members: Family Household Members Other:: brother Housing: Apartment Are you a primary career placement services counselor to a significant other at home: No Do you presently have visiting nurse or other home services: No Alcohol intake: former Comment: 2012 quit Patient Tobacco Use Status: Never used Tobacco Tobacco use type: Cigarette e-Cigarette/Vaping Use: Never Used Second Hand Smoke Exposure: No service: No Current occupational status: employed Cognitive needs: No Hearing needs: No Vision needs: Yes Physical Exam ED Vital Signs: BMI result Body Mass Index 32.1 Course Course Course Narrative: This is a Rapid Medical Exam performed in triage by Gisselle Woodruff PA-C. Full HPI, ROS and PE to be performed by primary ED provider. 49-year-old female with a past medical history HTN, hypothyroid, PKD, anemia, kidney stones presenting to the ED c/o right flank pain radiating to RUQ x 1 week. Admits pain is intermittent. Denies nausea, vomiting, diarrhea, fever. Pain worse with ambulation PE: Abdomen is soft and nontender. No CVAT Plan: Labs, UA Medical Decision Making Lab Data 06/08/24 18:40 06/08/24 18:40 Labs: Lab Results 06/08/24 Range/Units 18:40 WBC 7.0 (4.8-10.8) X10*3/uL RBC 5.28 (4.20-5.50) X10*6/uL Hgb 11.6 L (12.0-16.0) g/dl Hct 37.3 (37.0-47.0) % MCV 70.6 L (80.0-98.0) fL MCH 22.0 L (27.0-33.0) pg MCHC 31.1 (31.0-35.0) g/dl RDW 15.7 (11.0-16.0) % Plt Count 303 (160-400) X10*3/uL MPV 11.3 (9.4-12.3) fL Immature Gran % (Auto) 0.1 (0.0-0.4) % Neut % (Auto) 60.2 (45-73) % Lymph % (Auto) 32.8 (20-40) % [place] % (Auto) 5.2 (2-11) % Eos % (Auto) 1.3 (0-4) % Baso % (Auto) 0.4 (0-2) % Lymph # (Auto) 2.3 (1.2-4.9) X10*3/uL [place] # (Auto) 0.4 (0.1-1.2) X10*3/uL Eos # (Auto) 0.1 (0.0-0.4) X10*3/uL Baso # (Auto) 0.0 (0.0-0.2) X10*3/uL Abs Immat Gran (auto) 0.01 (0.00-0.03) X10*3/uL Absolute Neuts (auto) 4.2 (2.0-8.3) x10*3/uL Absolute Nucleated RBC 0.000 (0.0-0.012) X10*3/uL Nucleated RBC % (auto) 0.0 (0.0-0.2) /100WBC Sodium 139 (135-145) mmol/L Potassium 3.9 (3.3-5.1) mmol/L Chloride 103 (96-108) mmol/L Carbon Dioxide 28 (22-29) mmol/L Anion Gap 12 (12-20) BUN 18 H (9-16) mg/dL Creatinine 0.73 (0.5-1.4) mg/dL Estim Creat Clear Calc 92.5 Estimated GFR > 60 Random Glucose 96 (60-115) mg/dL Calcium 9.6 (8.4-10.2) mg/dL Magnesium 1.8 (1.6-2.6) mg/dL Total Bilirubin 0.2 (0.0-1.0) mg/dL Direct Bilirubin < 0.2 (0.0-0.5) mg/dL AST 40 H (5-31) U/L ALT 47 H (0-31) U/L Alkaline Phosphatase 80 (39-117) U/L Total Protein 7.4 (6.5-8.0) g/dL Albumin 4.2 (3.5-5.0) g/dL Lipase 27 (8-78) U/L Discharge Plan Discharge Clinical Impression: Flank pain Patient Disposition: Left W/O Completing Treatment Prescriptions: No Action lisinopril 10 mg tablet 10 mg PO DAILY Qty: 90 8RF levothyroxine 25 mcg tablet 25 mcg PO DAILY@0600 Qty: 90 8RF lorazepam 0.5 mg tablet 0.5 mg PO DAILY PRN (Reason: anxiety) Qty: 14 1RF multivitamin Tablet 1 tab PO DAILY (DME) blood pressure monitor [Blood Pressure Kit] Kit See Rx Instructions .ROUTE .MEDSUPPLY Qty: 1 0RF Rx Instructions: As directed hydrocortisone [Proctosol HC] 2.5 % cream with perineal applicator 1 appl [place] BID PRN (Reason: itching) Qty: 30 0RF ferrous sulfate 325 mg (65 mg iron) tablet 325 mg PO BID Qty: 60 3RF triamcinolone acetonide 0.5 % cream 1 appl topical BID Qty: 30 0RF diclofenac sodium [Arthritis Pain (diclofenac)] 1 % gel 4 g topical QID Qty: 200 1RF Rx Instructions: apply to single knee, ankle, foot; for foot includes sole/toes/top of foot meloxicam 15 mg tablet 15 mg PO DAILY Qty: 30 1RF cyclobenzaprine 10 mg tablet 10 mg PO Q8H Qty: 30 1RF lidocaine [Lidoderm] 5 % adhesive patch,medicated 1 patch topical DAILY Qty: 15 1RF Rx Instructions: leave on most painful area for up to 12 hrs Discharge Date/Time: 06/08/24 22:07
[2024-06-08 18:45] LABS: MANUAL DIFF FLAG NO
[2024-06-08 18:46] LABS: Basophils Percent Auto 0.4 % (0-2); Eosinophils Absolute Auto 0.1 X10*3/uL (0.0-0.4); Eosinophils Percent Auto 1.3 % (0-4); Hematocrit 37.3 % (37.0-47.0); Hemoglobin 11.6 g/dl (12.0-16.0); Imm Gran Abs Auto 0.01 X10*3/uL (0.00-0.03); Imm Gran Pct Auto 0.1 % (0.0-0.4); Lymphocytes Absolute Auto 2.3 X10*3/uL (1.2-4.9); Lymphocytes Percent Auto 32.8 % (20-40); Mean Corpuscular HGB Conc 31.1 g/dl (31.0-35.0); Mean Corpuscular Volume 70.6 fL (80.0-98.0); Mean Platelet Volume 11.3 fL (9.4-12.3); Monocytes Absolute Auto 0.4 X10*3/uL (0.1-1.2); Monocytes Percent Auto 5.2 % (2-11); Neutrophils Absolute Auto 4.2 x10*3/uL (2.0-8.3); Neutrophils Percent Auto 60.2 % (45-73); Platelet Count 303 X10*3/uL (160-400); Red Blood Count 5.28 X10*6/uL (4.20-5.50); Red Cell Distribution Width 15.7 % (11.0-16.0)
--- OUTSIDE RECORDS SUMMARY | 2024-06-08 18:49 | XMS_ITS | Clinical Summary ---
Author Organization [facility] Facility Address [address] [place] [id number] Care Team Providers Care Clearing Inspector Name Role Phone Stanley Contreras MD Primary Care Provider [phone] Medications Multiple Vitamin (MULTIVITAMIN ADULT PO) Take [...] (1 of 3 - 19+ 3-dose series) 05/11 Colorectal Cancer Screening: Annual FOBT 2022 Colorectal Cancer Screening: Colonoscopy 2022 Colorectal Cancer Screening: Sigmoidoscopy 2022 Pneumococcal Vaccine: 50+ Years (1 of 1 - PCV) 024 Influenza Vaccine (Season Ended) 2024 Insurance [facility] Care Teams Clearing Inspector Relationship Specialty Start Date End Date Stanley Contreras MD [facility] [place] [address] [place] PCP - General 02/27/20
--- OUTSIDE RECORDS SUMMARY | 2024-06-08 18:49 | XMS_ITS | Encounter Summary ---
Author Organization [facility] Address [address] [facility] [address] [place] [address] Phone Care Team Providers Care Scene Shifter Name Role Phone Stanley Contreras MD Primary Care Provider [phone] Reason for Visit * Reason Comments Med Refill Encounter Details Date Type Department Care Team (Late st Contact Info) Description 12/06/2022 Refill [facility] [address] [place] [phone] Terrance Card MD Social History Tobacco Use [...] on filedocumented in this encounter Care Teams Scene Shifter Relationship Specialty Start Date End Date Stanley Contreras MD [facility] [address] [place] PCP - General 02/27/20 documented as of this encounter
[2024-06-08 19:01] LABS: Alanine Aminotransferase 47 U/L (0-31); Albumin Level 4.2 g/dL (3.5-5.0); Alkaline Phosphatase 80 U/L (39-117); Anion Gap 12 (12-20); Aspartate Amino Transferase 40 U/L (5-31); Bilirubin Direct < 0.2 mg/dL (0.0-0.5); Bilirubin Total 0.2 mg/dL (0.0-1.0); Blood Urea Nitrogen 18 mg/dL (9-16); Calcium 9.6 mg/dL (8.4-10.2); Carbon Dioxide 28 mmol/L (22-29); Chloride 103 mmol/L (96-108); Creatinine Clr Calc Pharmacy 92.5; Estimated Glomerular Filt Rate > 60; Glucose Random 96 mg/dL (60-115); Lipase 27 U/L (8-78); Magnesium 1.8 mg/dL (1.6-2.6); Potassium 3.9 mmol/L (3.3-5.1); Sodium 139 mmol/L (135-145); Total Protein 7.4 g/dL (6.5-8.0)
--- NOTE | 2024-06-08 21:24 | PC.NURSE ---
called for reassessment, no answer.
== END 2024-06-08 22:07 | disposition left against medical advice (07) ==
PROVIDERS: Physician Assistant; Emergency Provider Emergency Medicine; PCP Internal Medicine
DX: R10.9 Unspecified abdominal pain (principal); I10 Essential (primary) hypertension; E03.9 Hypothyroidism, unspecified; D50.9 Iron deficiency anemia, unspecified
CPT/HCPCS: 36415; 80048; 80076; 83690; 83735; 85025; 99281; 99283

== ENCOUNTER 2024-06-09 09:15 | Emergency (ER) | payer OTHER, SELFPAY ==
--- NOTE | ~2024-06-09 | CT_ITS ---
EXAMINATION: CT ABDOMEN AND PELVIS WITHOUT CONTRAST CLINICAL INFORMATION: Right flank and right lower quadrant abdominal pain. COMPARISON: 01/02/2022, 12/31/2020. TECHNIQUE: Multidetector volumetric imaging was performed from the superior aspect of the liver through the pubic symphysis. Sagittal and coronal reformatted images were obtained on the technologist's workstation. This CT examination was performed using dose optimization techniques as appropriate, variously including the following: *Automated exposure control *Adjustment of mA and/or kV according to patient size (this includes techniques or standardized protocols for targeted exams where dose is matched to indication/reason for exam; i.e. extremities or head) *Use of iterative reconstruction technique FINDINGS: LUNG BASES: The visualized lung bases are unremarkable. LIVER, GALLBLADDER, AND BILIARY TREE: The liver is normal in size, shape, and attenuation. No focal hepatic lesion or biliary ductal dilatation is present. The gallbladder is unremarkable with no evidence of radiopaque gallstones, gallbladder wall thickening, or obvious pericholecystic inflammatory changes. PANCREAS: Unremarkable. SPLEEN: Unremarkable. ADRENAL GLANDS: Unremarkable. KIDNEYS AND URETERS: Right kidney: There are numerous renal cysts present, the largest in the lower pole measuring 10.1 x 9.7 x 10.0 cm. There are numerous smaller cysts present as well, some with thin calcifications within the hurley, similar to prior examinations and consistent with Bosniak 2 type cyst. No definite solid mass identified. There is a 4 mm nonobstructing calculus in the midpole. There is no hydronephrosis or hydroureter. Left kidney: There are numerous renal cysts present, largest in the midpole measuring 7.2 cm in diameter. Several smaller cysts present, also demonstrating peripheral thin calcifications, and some small hyperattenuating likely proteinaceous cysts. The appearance is unchanged from prior exams. There is 3 mm nonobstructing calculus in the upper pole, and in the midpole as well. There is no left hydronephrosis or hydroureter. BLADDER: Normal. The distal ureters appear normal. GASTROINTESTINAL TRACT: Normal appendix. No acute findings in the GI tract. Normal appearance. ABDOMINAL WALL: No significant hernia is appreciated. LYMPH NODES: Previously described subcentimeter left-sided para-aortic and left-sided pelvic lymph nodes are unchanged and consistent with reactive etiology. There is no pathologic adenopathy. VASCULAR: Unremarkable. PELVIC VISCERA: The uterus and adnexa are unremarkable. OSSEOUS STRUCTURES: No suspicious lytic or blastic bone lesions. Mild degenerative changes throughout the spine. Mild hip joint degenerative changes. CT/CT abdomen pelvis wo IV con IMPRESSION: 1. No acute findings in the abdomen or pelvis. 2. Numerous bilateral renal cysts, largest measuring up to 10.1 cm in the right lower pole. Several of these cysts demonstrate thin wall calcifications. Several smaller cysts are slightly hyperattenuating, most likely proteinaceous or hemorrhagic cysts. The overall appearance is unchanged without suspicious features. 3. There are nonobstructing calculi in both kidneys. There is no hydronephrosis or hydroureter. 4. Additional ancillary findings as discussed in the body of the report. Electronically signed by: Norman Costa MD 06/09/2024 02:02 PM EDT
[2024-06-09 09:19] VITALS: BP 133/78; PULSE 96; RESP 16; TEMP 36.1; O2SAT 99; BMI 31.9
--- NOTE | 2024-06-09 09:26 | ED.ABDPAIN ---
HPI - Abdominal Pain General Chief Complaint: Abdominal Pain Stated Complaint: Kidney Pain Time Seen by Provider: 06/09/24 09:23 Source: patient Mode of arrival: ambulatory Limitations: no limitations History of Present Illness ED Provider: XENA LEONARD PA-C HPI narrative: 49 year old female with pmhx significant for nephrolithiasis, PCKD, hypothyroidism, HTN, anemia presents to the ED today for evaluation of right flank pain x1 week. No radiation. No recent heavy lifting. No blunt injury or trauma. Reports taking muscle relaxer last night with improvement. Pain is minimal at present, reports more of a discomfort. 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 Denies any fever/chills, N/V/D, abdominal pain, urinary symptoms. Related Data Home Medications ?Medication ?Instructions ?Recorded ?Confirmed multivitamin 1 tab PO DAILY 03/30/20 04/29/24 Previous Rx's ?Medication ?Instructions ?Recorded hydrocortisone 2.5 % topical cream 1 appl GA BID PRN itching #30 grams 08/01/21 with perineal applicator (Proctosol HC) blood pressure monitor (Blood #1 ea 04/03/22 Pressure Kit) ferrous sulfate 325 mg (65 mg 325 mg PO BID #60 tabs 04/10/23 iron) tablet diclofenac sodium 1 % topical gel 4 g topical QID #200 grams 10/30/23 (Arthritis Pain (diclofenac)) triamcinolone acetonide 0.5 % 1 appl topical BID #30 grams 10/30/23 topical cream lisinopril 10 mg tablet 10 mg PO DAILY #90 tabs 11/16/23 levothyroxine 25 mcg tablet 25 mcg PO DAILY@0600 #90 tabs 02/15/24 cyclobenzaprine 10 mg tablet 10 mg PO Q8H #30 tabs 04/29/24 lidocaine 5 % topical patch 1 patch topical DAILY #15 ea 04/29/24 (Lidoderm) meloxicam 15 mg tablet 15 mg PO DAILY #30 tabs 04/29/24 lorazepam 0.5 mg tablet 0.5 mg PO DAILY PRN anxiety #14 05/04/24 tabs Allergies Allergy/AdvReac Type Severity Reaction Status Date / Time No Known Allergies Allergy Verified 06/09/24 09:20 Review of Systems Review of Systems Yes all other systems are reviewed and are negative PMFSH Past Medical History Attestation statement: The following information was validated with the patient. Source: old records reviewed and nursing notes reviewed Medical History Lumbar strain Pre-employment health screening examination Women's annual routine gynecological examination Breast cancer screening by mammogram Vertigo History of kidney stones Family history of colon cancer Colon cancer screening Vitamin D deficiency Obesity (BMI 30-39.9) Anxiety Iron deficiency anemia Anemia HTN (hypertension) Hypothyroid PKD (polycystic kidney disease) Surgical History Hx of cystoscopy Hx of colonoscopy No pertinent past surgical history Family History Family History Mother Breast cancer Maternal Aunt Breast cancer IBS (irritable bowel syndrome) Maternal Aunt Breast cancer Family/Other Breast cancer Family/Other Breast cancer Sister Colon cancer Cervical cancer Maternal Uncle Heart attack Brother Diabetes Brother Diabetes Other Mental health problem Social History Social History Household Members: Family Household Members Other:: brother Housing: Apartment Are you a primary healthcare translator to a significant other at home: No Do you presently have visiting nurse or other home services: No Alcohol intake: former Comment: 2012 quit Patient Tobacco Use Status: Never used Tobacco Tobacco use type: Cigarette Smoked in Last 30 Days: No e-Cigarette/Vaping Use: Never Used Second Hand Smoke Exposure: No Use of substances other than those prescribed or required for medical reasons: No Advance Directives: No Advance Directives Information Provided: Yes service: No Current occupational status: employed Cognitive needs: No Hearing needs: No Vision needs: Yes Physical Exam ED Vital Signs: Vital Signs - 24 hr 06/09/24 09:19 06/09/24 10:11 06/09/24 12:41 Temperature 97 F 97.1 F 98.7 F Pulse Rate 96 84 61 Respiratory Rate 16 18 18 Blood Pressure 133/78 131/78 133/79 Pulse Oximetry 99 98 96 Oxygen Delivery Method Room Air Room Air Room Air BMI result Body Mass Index 31.9 Vitals stable General: Well appearing, in no acute distress. Skin: Warm, dry, intact. No rashes or lesions. Head: Normocephalic, atraumatic. EENT: Hearing is intact b/l. Conjunctiva clear. Sclera is anicteric. Neck: Supple without LAD. Cardiac: Chest wall symmetric. RRR. Lungs: Normal respiratory effort without accessory muscle use. CTA bilaterally. Abdomen: Soft, non-tender, non-distended. No rebound tenderness or guarding. Positive BS x4. no cvat. Back: No midline spinous or paraspinal tenderness. No step off deformity. No CVA tenderness Ext: Upper and lower extremities atraumatic Neuro: AOx3. Normal speech. Ambulating with steady gait. Course Course Course Narrative: 1100 -- no leukocytosis or left shift. H&H around baseline. Chemistry without acute electrolyte abnormality requiring intervention. Kidney function around baseline. Random glucose 119. Liver function around baseline. Lipase elevated to 107, triglycerides WNL. No concern for pancreatitis. Urine without infection or blood. > will trial IM Toradol. CT a/p ordered. 1447 -- delay in obtaining CT results as image was did not cross over. I did speak with radiologist. CT shows numerous bilateral renal cysts, largest measuring up to 10.1 cm in the right lower pole, several cyst demonstrate thin wall calcifications, several smaller cysts or slightly hyper attenuating most likely proteinaceous or hemorrhagic. Overall appearance is unchanged from imaging in 2020 and 2021. No suspicious features. There are nonobstructing calculi in both kidneys without evidence of hydronephrosis or hydroureter. > patient reports improvement with Toradol. Unclear etiology of discomfort however patient appears comfortable and in no acute distress. Advised to follow up with urologist. Referral provided. Patient has remained stable throughout ED visit today. Discussed worrisome signs and symptoms and when to return to the ED. All questions answered at this time. Patient is agreeable with disposition and stable for discharge. Medical Decision Making Medical Decision Making MDM Narrative: 49 year old female with pmhx significant for nephrolithiasis, PCKD, hypothyroidism, HTN, anemia presents to the ED today for evaluation of right flank pain x1 week. Vital signs stable, afebrile. she is nontoxic appearing and in NAD. on exam, abdomen is soft, ND/NT, no rebound or guarding. No CVAT. active bs x4. Differential diagnosis consists of nephrolithiasis, MSK strain/sprain, UTI, hydronephrosis, appendicitis, gastroenteritis, constipation, pancreatitis, biliary colic, gastritis, PUD, anemia, electrolyte abnormality Plan for labs, UA, CT abd/pelvis, pain control and re-evaluation. Differential Diagnosis Differential Diagnoses: The differential diagnosis associated with the presentation includes As above Admission/Observation Not indicated Lab Data MDM Lab Attestation statement: I reviewed the patient's lab results. As above 06/09/24 09:52 06/09/24 09:52 Labs: Lab Results 06/09/24 Range/Units 09:52 WBC 6.2 (4.8-10.8) X10*3/uL RBC 5.30 (4.20-5.50) X10*6/uL Hgb 11.6 L (12.0-16.0) g/dl Hct 37.2 (37.0-47.0) % MCV 70.2 L (80.0-98.0) fL MCH 21.9 L (27.0-33.0) pg MCHC 31.2 (31.0-35.0) g/dl RDW 15.9 (11.0-16.0) % Plt Count 265 (160-400) X10*3/uL MPV 9.1 L (9.4-12.3) fL Immature Gran % (Auto) 0.2 (0.0-0.4) % Neut % (Auto) 66.0 (45-73) % Lymph % (Auto) 25.9 (20-40) % Dent % (Auto) 5.8 (2-11) % Eos % (Auto) 1.6 (0-4) % Baso % (Auto) 0.5 (0-2) % Lymph # (Auto) 1.6 (1.2-4.9) X10*3/uL Dent # (Auto) 0.4 (0.1-1.2) X10*3/uL Eos # (Auto) 0.1 (0.0-0.4) X10*3/uL Baso # (Auto) 0.0 (0.0-0.2) X10*3/uL Abs Immat Gran (auto) 0.01 (0.00-0.03) X10*3/uL Absolute Neuts (auto) 4.1 (2.0-8.3) x10*3/uL Absolute Nucleated RBC 0.000 (0.0-0.012) X10*3/uL Nucleated RBC % (auto) 0.0 (0.0-0.2) /100WBC Sodium 139 (135-145) mmol/L Potassium 4.1 (3.3-5.1) mmol/L Chloride 109 H (96-108) mmol/L Carbon Dioxide 25 (22-29) mmol/L Anion Gap 9 L (12-20) BUN 19 H (9-16) mg/dL Creatinine 0.71 (0.5-1.4) mg/dL Estim Creat Clear Calc 94.8 Estimated GFR > 60 Random Glucose 119 H (60-115) mg/dL Calcium 9.5 (8.4-10.2) mg/dL Magnesium 1.7 (1.6-2.6) mg/dL Total Bilirubin 0.3 (0.0-1.0) mg/dL AST 40 H (5-31) U/L ALT 47 H (0-31) U/L Alkaline Phosphatase 83 (39-117) U/L Total Protein 7.3 (6.5-8.0) g/dL Albumin 4.1 (3.5-5.0) g/dL Triglycerides 76 (<150) mg/dL Lipase 107 H (8-78) U/L Urine Color Yellow Urine Appearance Clear Urine pH 8.5 (5.0-9.0) Ur Specific [place] 1.020 (1.005-1.025) Urine Protein Negative (Neg-Trace) mg/dL Urine Glucose (UA) Negative (Negative) mg/dL Urine Ketones Negative (Negative) mg/dL Urine Blood Negative (Negative) Urine Nitrite Negative (Negative) Ur Leukocyte Esterase Negative (Negative) Independent Interpretation I performed an independent interpretation of an: CT Scan Interpretation: CT abdomen/pelvis showing multiple cysts to bilateral kidneys Radiology Impression Discussion of test interpretation with radiology: I have reviewed the radiologist's reading. Radiologist Impression: Procedure(s): CT abdomen pelvis wo IV con Accession Number(s): [id number] cc: Stanley Contreras MD; Xena Leonard~ Report Number: [id number]: Total DLP = 576.00 mGy-cm EXAMINATION: CT ABDOMEN AND PELVIS WITHOUT CONTRAST CLINICAL INFORMATION: Right flank and right lower quadrant abdominal pain. COMPARISON: 01/02/2022, 12/31/2020. TECHNIQUE: Multidetector volumetric imaging was performed from the superior aspect of the liver through the pubic symphysis. Sagittal and coronal reformatted images were obtained on the technologist's workstation. This CT examination was performed using dose optimization techniques as appropriate, variously including the following: *Automated exposure control *Adjustment of mA and/or kV according to patient size (this includes techniques or standardized protocols for targeted exams where dose is matched to indication/reason for exam; i.e. extremities or head) *Use of iterative reconstruction technique FINDINGS: LUNG BASES: The visualized lung bases are unremarkable. LIVER, GALLBLADDER, AND BILIARY TREE: The liver is normal in size, shape, and attenuation. No focal hepatic lesion or biliary ductal dilatation is present. The gallbladder is unremarkable with no evidence of radiopaque gallstones, gallbladder wall thickening, or obvious pericholecystic inflammatory changes. PANCREAS: Unremarkable. SPLEEN: Unremarkable. ADRENAL GLANDS: Unremarkable. KIDNEYS AND URETERS: Right kidney: There are numerous renal cysts present, the largest in the lower pole measuring 10.1 x 9.7 x 10.0 cm. There are numerous smaller cysts present as well, some with thin calcifications within the hurley, similar to prior examinations and consistent with Bosniak 2 type cyst. No definite solid mass identified. There is a 4 mm nonobstructing calculus in the midpole. There is no hydronephrosis or hydroureter. Left kidney: There are numerous renal cysts present, largest in the midpole measuring 7.2 cm in diameter. Several smaller cysts present, also demonstrating peripheral thin calcifications, and some small hyperattenuating likely proteinaceous cysts. The appearance is unchanged from prior exams. There is 3 mm nonobstructing calculus in the upper pole, and in the midpole as well. There is no left hydronephrosis or hydroureter. BLADDER: Normal. The distal ureters appear normal. GASTROINTESTINAL TRACT: Normal appendix. No acute findings in the GI tract. Normal appearance. ABDOMINAL WALL: No significant hernia is appreciated. LYMPH NODES: Previously described subcentimeter left-sided para-aortic and left-sided pelvic lymph nodes are unchanged and consistent with reactive etiology. There is no pathologic adenopathy. VASCULAR: Unremarkable. PELVIC VISCERA: The uterus and adnexa are unremarkable. OSSEOUS STRUCTURES: No suspicious lytic or blastic bone lesions. Mild degenerative changes throughout the spine. Mild hip joint degenerative changes. CT/CT abdomen pelvis wo IV con IMPRESSION: 1. No acute findings in the abdomen or pelvis. 2. Numerous bilateral renal cysts, largest measuring up to 10.1 cm in the right lower pole. Several of these cysts demonstrate thin wall calcifications. Several smaller cysts are slightly hyperattenuating, most likely proteinaceous or hemorrhagic cysts. The overall appearance is unchanged without suspicious features. 3. There are nonobstructing calculi in both kidneys. There is no hydronephrosis or hydroureter. 4. Additional ancillary findings as discussed in the body of the report. External Record Review External record reviewed: Inpatient record Prescription Management I considered prescription management with: Pain Medication Social Determinants Patient?s care significantly limited by Social Determinants of Health including: Other Social Determinant of Health Medications Administered Discontinued Medications Generic Name Dose Route Start Last Admin Trade Name Freq PRN Reason Stop Dose Admin Ketorolac Tromethamine 30 mg 06/09/24 10:38 06/09/24 11:06 Ketorolac Tromethamine 30 Mg/Ml Vial IM 06/09/24 10:39 30 mg ONCE ONE Administration Critical Care Time Critical Care Time Critical Care Time: No Discharge Plan Discharge Clinical Impression: Right flank pain Patient Disposition: Home, Self-Care Instructions: Flank Pain (ED) Additional Instructions: Your blood work is reassuring. Your urine is negative for infection and blood. As discussed, the CT scan of your abdomen shows: CT abdomen pelvis wo IV con IMPRESSION: 1. No acute findings in the abdomen or pelvis. 2. Numerous bilateral renal cysts, largest measuring up to 10.1 cm in the right lower pole. Several of these cysts demonstrate thin wall calcifications. Several smaller cysts are slightly hyperattenuating, most likely proteinaceous or hemorrhagic cysts. The overall appearance is unchanged without suspicious features. 3. There are nonobstructing calculi in both kidneys. There is no hydronephrosis or hydroureter. These findings are unchanged from your scan a few years ago. I recommend Tylenol for pain/discomfort. You should also follow up with urologist. I have provided you with a referral. Call them to establish care. They will not call you. Return with any new or worsening symptoms. In the case of an emergency call 911. Prescriptions: No Action lisinopril 10 mg tablet 10 mg PO DAILY Qty: 90 8RF levothyroxine 25 mcg tablet 25 mcg PO DAILY@0600 Qty: 90 8RF lorazepam 0.5 mg tablet 0.5 mg PO DAILY PRN (Reason: anxiety) Qty: 14 1RF multivitamin Tablet 1 tab PO DAILY (DME) blood pressure monitor [Blood Pressure Kit] Kit See Rx Instructions .ROUTE .MEDSUPPLY Qty: 1 0RF Rx Instructions: As directed hydrocortisone [Proctosol HC] 2.5 % cream with perineal applicator 1 appl GA BID PRN (Reason: itching) Qty: 30 0RF ferrous sulfate 325 mg (65 mg iron) tablet 325 mg PO BID Qty: 60 3RF triamcinolone acetonide 0.5 % cream 1 appl topical BID Qty: 30 0RF diclofenac sodium [Arthritis Pain (diclofenac)] 1 % gel 4 g topical QID Qty: 200 1RF Rx Instructions: apply to single knee, ankle, foot; for foot includes sole/toes/top of foot meloxicam 15 mg tablet 15 mg PO DAILY Qty: 30 1RF cyclobenzaprine 10 mg tablet 10 mg PO Q8H Qty: 30 1RF lidocaine [Lidoderm] 5 % adhesive patch,medicated 1 patch topical DAILY Qty: 15 1RF Rx Instructions: leave on most painful area for up to 12 hrs Referrals: [facility] [Provider Group] Stanley Contreras MD [Primary Care Provider] - Stand Alone Forms: Work/School Release Discharge Date/Time: 06/09/24 14:50 Print Language: Icelandic
--- NOTE | 2024-06-09 09:44 | PC.NURSE ---
pt is alert and oriented, skin appropriate for eternity, respirations even and unlabored, pt reports intermittent right flank that radiates to the front denies pain at this time, denies n/v/diarrhea/no urinary symptoms, pt does state that the pain sometimes gets worse with movement also has hx of kidney stones
[2024-06-09 10:00] LABS: MANUAL DIFF FLAG NO
[2024-06-09 10:03] LABS: Appearance Urine Clear; Color Urine Yellow; Glucose Urine UA Negative (Negative); Leukocyte Esterase Urine Negative (Negative); Nitrite Urine Negative (Negative); PH 8.5 (5.0-9.0); Urine Blood Negative (Negative); Urine Ketones Negative (Negative); Urine Protein Negative (Neg-Trace)
[2024-06-09 10:07] LABS: Basophils Percent Auto 0.5 % (0-2); Eosinophils Absolute Auto 0.1 X10*3/uL (0.0-0.4); Eosinophils Percent Auto 1.6 % (0-4); Hematocrit 37.2 % (37.0-47.0); Hemoglobin 11.6 g/dl (12.0-16.0); Imm Gran Abs Auto 0.01 X10*3/uL (0.00-0.03); Imm Gran Pct Auto 0.2 % (0.0-0.4); Lymphocytes Absolute Auto 1.6 X10*3/uL (1.2-4.9); Lymphocytes Percent Auto 25.9 % (20-40); Mean Corpuscular HGB Conc 31.2 g/dl (31.0-35.0); Mean Corpuscular Hemoglobin 21.9 pg (27.0-33.0); Mean Corpuscular Volume 70.2 fL (80.0-98.0); Mean Platelet Volume 9.1 fL (9.4-12.3); Monocytes Absolute Auto 0.4 X10*3/uL (0.1-1.2); Monocytes Percent Auto 5.8 % (2-11); Neutrophils Absolute Auto 4.1 x10*3/uL (2.0-8.3); Platelet Count 265 X10*3/uL (160-400); Red Cell Distribution Width 15.9 % (11.0-16.0); White Blood Count 6.2 X10*3/uL (4.8-10.8)
[2024-06-09 10:11] VITALS: BP 131/78; PULSE 84; RESP 18; TEMP 36.2; O2SAT 98
[2024-06-09 10:16] LABS: Alanine Aminotransferase 47 U/L (0-31); Albumin Level 4.1 g/dL (3.5-5.0); Alkaline Phosphatase 83 U/L (39-117); Anion Gap 9 (12-20); Aspartate Amino Transferase 40 U/L (5-31); Bilirubin Total 0.3 mg/dL (0.0-1.0); Blood Urea Nitrogen 19 mg/dL (9-16); Calcium 9.5 mg/dL (8.4-10.2); Carbon Dioxide 25 mmol/L (22-29); Chloride 109 mmol/L (96-108); Creatinine Clr Calc Pharmacy 94.8; Estimated Glomerular Filt Rate > 60; Glucose Random 119 mg/dL (60-115); Lipase 107 U/L (8-78); Magnesium 1.7 mg/dL (1.6-2.6); Potassium 4.1 mmol/L (3.3-5.1); Sodium 139 mmol/L (135-145); Total Protein 7.3 g/dL (6.5-8.0)
[2024-06-09 10:35] LABS: Triglycerides 76 mg/dL (<150)
--- OUTSIDE RECORDS SUMMARY | 2024-06-09 11:01 | XMS_ITS | Clinical Summary ---
Author Organization [facility] Facility Address [address] [place] [id number] Care Team Providers Care Cable Weaver Name Role Phone Stanley Contreras MD Primary Care Provider Medications Multiple Vitamin (MULTIVITAMIN ADULT PO) Take [...] 024 Influenza Vaccine (Season Ended) 2024 Insurance [employer] Care Teams Cable Weaver Relationship Specialty Start Date End Date Stanley Contreras MD [facility] [place] [address] [place] PCP - General 02/27/20
--- OUTSIDE RECORDS SUMMARY | 2024-06-09 11:01 | XMS_ITS | Encounter Summary ---
Author Organization [facility] Address [address] [facility] [address] [place] [address] Phone Care Team Providers Care Submersible Pilot Name Role Phone Stanley Contreras MD Primary Care Provider [phone] Reason for Visit * Reason Comments Med Refill Encounter Details Date Type Department Care Team (Late st Contact Info) Description 12/06/2022 Refill [facility] [address] [place] [phone] Terrance Card MD Social History Tobacco Use [...] on filedocumented in this encounter Care Teams Submersible Pilot Relationship Specialty Start Date End Date Stanley Contreras MD [facility] [place] [address] [place] PCP - General 02/27/20 documented as of this encounter
[2024-06-09] MEDS: Ketorolac Tromethamine 30 MG/ML VIAL IM (11:06)
[2024-06-09 12:41] VITALS: BP 133/79; PULSE 61; RESP 18; TEMP 37.1; O2SAT 96
[2024-06-09 14:49] VITALS: BP 142/32; PULSE 67; RESP 18; TEMP 36.9; O2SAT 98
[2024-06-09 14:50] VITALS: BP 142/32; PULSE 67; RESP 18; TEMP 36.9; O2SAT 98
== END 2024-06-09 14:50 | disposition home or self-care (01) ==
PROVIDERS: Physician Assistant Medical; Emergency Provider Emergency Medicine; PCP Internal Medicine
DX: R10.9 Unspecified abdominal pain (principal); N20.0 Calculus of kidney; I10 Essential (primary) hypertension; E78.00 Pure hypercholesterolemia, unspecified; E03.9 Hypothyroidism, unspecified; D50.9 Iron deficiency anemia, unspecified
CPT/HCPCS: 36415; 74176; 80053; 81003; 83690; 83735; 84478; 85025; 96372; 99284; J1885

== ENCOUNTER → 2024-06-09 10:37 | Outpatient (BNV) | payer OTHER, SELFPAY | PROVIDERS: Emergency Provider Emergency Medicine; PCP Internal Medicine; Visit Provider Radiology Diagnostic Radiology | DX: N28.1 Cyst of kidney, acquired (principal); N20.0 Calculus of kidney | CPT/HCPCS: 74176 ==

== ENCOUNTER 2024-06-16 10:00 | Outpatient (AMB) | payer OTHER, SELFPAY ==
--- NOTE | 2024-06-16 10:05 | HO.NEPHOV ---
Vital Signs 06/16/24 10:09 Weight 179 lb BP 132/82 Blood Pressure Location Rt brachial Position Sitting Intake Visit Reasons: Previous Pt/ Kidney Stones/ LVM Intake Note: Patient presents for follow up. Allergies No Known Allergies Allergy (Verified 06/16/24 10:10) Medication List - Last Reconciled 06/16/24 by Terrance Card MD blood pressure monitor (Blood Pressure Kit) As directed cyclobenzaprine 10 mg PO Q8H diclofenac sodium 1% (Arthritis Pain (diclofenac)) 4 grams topical QID ferrous sulfate 325 mg PO BID hydrocortisone 2.5% (Proctosol HC) 1 appl [place] BID PRN levothyroxine 25 mcg PO DAILY@0600 lidocaine 5% (Lidoderm) 1 patch topical DAILY lisinopril 10 mg PO DAILY lorazepam 0.5 mg PO DAILY PRN meloxicam 15 mg PO DAILY multivitamin 1 tab PO DAILY triamcinolone acetonide 0.5% 1 appl topical BID HPI Comments Details: Ev is well known to me . She is a middle-aged woman with a history of polycystic kidney disease. She was previously seen in October 2022. Recently she was in the emergency room and was found to have bilateral renal stones. She is here for further evaluation. Liliane has a history of polycystic kidney disease There has a family history of PCKD. She has been drinking plenty of Coke in [facility]. [facility] Medical History Lumbar strain Pre-employment health screening examination Women's annual routine gynecological examination Breast cancer screening by mammogram Vertigo History of kidney stones Family history of colon cancer Colon cancer screening Vitamin D deficiency Obesity (BMI 30-39.9) Anxiety Iron deficiency anemia Anemia HTN (hypertension) Hypothyroid PKD (polycystic kidney disease) Surgical History Hx of cystoscopy Hx of colonoscopy No pertinent past surgical history Family History Mother Breast cancer Maternal Aunt Breast cancer IBS (irritable bowel syndrome) Maternal Aunt Breast cancer Family/Other Breast cancer Family/Other Breast cancer Sister Colon cancer Cervical cancer Maternal Uncle Heart attack Brother Diabetes Brother Diabetes Other Mental health problem Social History Household Members: Family Household Members Other:: brother Housing: Apartment Are you a primary associate director career services to a significant other at home: No Do you presently have visiting nurse or other home services: No Alcohol intake: former Comment: 2012 quit Patient Tobacco Use Status: Never used Tobacco Tobacco use type: Cigarette e-Cigarette/Vaping Use: Never Used Second Hand Smoke Exposure: No service: No Current occupational status: employed Cognitive needs: No Hearing needs: No Vision needs: Yes Female Reproductive History Menstrual Age of Menarche: 13 Review of Systems Const Denies fever(s) and Denies weight loss Card Denies chest pain Resp Denies cough and Denies hemoptysis GI Denies abdominal pain, Denies diarrhea and Denies nausea Musc Denies back pain Neuro Denies focal weakness Physical Exam Vital Signs: Last Vital Signs BP 132/82 06/16/24 10:09 Comfortable Neck supple no JVD. Lungs entry equal no rales. Heart S1-S2 heard no gallop or rub. Abdomen soft nontender. Neuro alert awake oriented. No asterixis. Extremities no edema. Results Reviewed Results Reviewed: CT Scan May 2024 1. No acute findings in the abdomen or pelvis. 2. Numerous bilateral renal cysts, largest measuring up to 10.1 cm in the right lower pole. Several of these cysts demonstrate thin wall calcifications. Several smaller cysts are slightly hyperattenuating, most likely proteinaceous or hemorrhagic cysts. The overall appearance is unchanged without suspicious features. 3. There are nonobstructing calculi in both kidneys. There is no hydronephrosis or hydroureter. 4. Additional ancillary findings as discussed in the body of the report. Nephrology Results: Hgb 11.6 g/dl (12.0-16.0) L 06/09/24 WBC 6.2 X10*3/uL (4.8-10.8) 06/09/24 Plt Count 265 X10*3/uL (160-400) 06/09/24 Sodium 139 mmol/L (135-145) 06/09/24 Potassium 4.1 mmol/L (3.3-5.1) 06/09/24 Chloride 109 mmol/L (96-108) H 06/09/24 Carbon Dioxide 25 mmol/L (22-29) 06/09/24 BUN 19 mg/dL (9-16) H 06/09/24 Creatinine 0.71 mg/dL (0.5-1.4) 06/09/24 Calcium 9.5 mg/dL (8.4-10.2) 06/09/24 Urine Protein Negative mg/dL (Neg-Trace) 06/09/24 Assessment & Plan Assessment & Plan (1) PKD (polycystic kidney disease): Code(s): Q61.3 - Polycystic kidney, unspecified Category: Medical (2) Bilateral nephrolithiasis: Code(s): N20.0 - Calculus of kidney Category: Medical Plan Ev is a middle-aged woman with polycystic kidney disease. Renal function stable. History of nephrolithiasis. She has tiny nonobstructing calculus bilaterally. Of note, mild elevation in AST and ALT Plan Obtain 24 urine collection. Encouraged her to stay on low-sodium diet Encouraged her to increase p.o. fluid intake to maintain a urine output of at least 2 L. Avoid cola drinks like Pepsi and Coke. Once the workup is completed I will discuss with her the possibility of using tolvaptan in view of P CKD Orders: Orders Calcium, 24 Hr Ur Today N20.0 - Calculus of kidney, Q61.3 - Polycystic kidney, unspecified Uric Acid, 24Hr Urine Group Today N20.0 - Calculus of kidney, Q61.3 - Polycystic kidney, unspecified Citric Acid 24hr Urine Today N20.0 - Calculus of kidney, Q61.3 - Polycystic kidney, unspecified Parathyroid Hormone Intact 2 Weeks N20.0 - Calculus of kidney UA and rflx microscopic 2 Weeks N20.0 - Calculus of kidney Sodium, 24Hr Urine Group Today N20.0 - Calculus of kidney, Q61.3 - Polycystic kidney, unspecified Creatinine, 24 Hr Group Today N20.0 - Calculus of kidney, Q61.3 - Polycystic kidney, unspecified Oxalate, 24 Hr Today N20.0 - Calculus of kidney, Q61.3 - Polycystic kidney, unspecified Phosphorus 2 Weeks N20.0 - Calculus of kidney Comprehensive Met. Panel 2 Weeks N20.0 - Calculus of kidney Coding Level of Care Code Est Pt Level 4 (94192) Diagnoses PKD (polycystic kidney disease) Q61.3 Bilateral nephrolithiasis N20.0
[2024-06-16 10:09] VITALS: BP 132/82
--- OUTSIDE RECORDS SUMMARY | 2024-06-16 11:16 | XMS_ITS | Encounter Summary ---
Author Organization [facility] Address [address] [facility] [address] [place] [address] Phone Care Team Providers Care Financial Planner Name Role Phone Stanley Contreras MD Primary Care Provider [phone] Reason for Visit * Reason Comments Med Refill Encounter Details Date Type Department Care Team (Late st Contact Info) Description 12/06/2022 Refill [facility] [address] [place] [phone] Terrance Card MD Social History Tobacco Use [...] on filedocumented in this encounter Care Teams Financial Planner Relationship Specialty Start Date End Date Stanley Contreras MD [facility] [place] [address] [place] PCP - General 02/27/20 documented as of this encounter
--- OUTSIDE RECORDS SUMMARY | 2024-06-16 11:16 | XMS_ITS | Clinical Summary ---
Author Organization [facility] Facility Address [address] [place] [address] Care Team Providers Care Bleaching Supervisor Name Role Phone Stanley Contreras MD Primary Care Provider [phone] Medications Multiple Vitamin (MULTIVITAMIN ADULT PO) Take [...] 024 Influenza Vaccine (Season Ended) 2024 Insurance [facility] Care Teams Bleaching Supervisor Relationship Specialty Start Date End Date Stanley Contreras MD [facility] MD [address] [place] PCP - General 02/27/20
== END 2024-06-16 10:24 | disposition home or self-care (01) ==
LOC: HO.HKA 10:01
PROVIDERS: PCP Internal Medicine; Visit Provider Internal Medicine Hypertension Specialist
DX: Q61.3 Polycystic kidney, unspecified (principal); N20.0 Calculus of kidney
CPT/HCPCS: 99214

== ENCOUNTER 2024-07-01 07:05 | Outpatient (REF) | payer OTHER, SELFPAY ==
--- OUTSIDE RECORDS SUMMARY | 2024-07-01 07:09 | XMS_ITS | Encounter Summary ---
Author Organization [facility] Address [address] [facility] [address] [place] [address] Phone Care Team Providers Care Correspondence Representative Name Role Phone Stanley Contreras MD Primary Care Provider [phone] Reason for Visit * Reason Comments Med Refill Encounter Details Date Type Department Care Team (Late st Contact Info) Description 12/06/2022 Refill [facility] [address] [place] [phone] Terrance Card MD Social History Tobacco Use [...] on filedocumented in this encounter Care Teams Correspondence Representative Relationship Specialty Start Date End Date Stanley Contreras MD [facility] [place] [address] [place] PCP - General 02/27/20 documented as of this encounter
[2024-07-01 07:51] LABS: Appearance Urine Clear; Color Urine Yellow; Glucose Urine UA Negative (Negative); Leukocyte Esterase Urine Negative (Negative); Nitrite Urine Negative (Negative); PH 5.5 (5.0-9.0); Specific Gravity - Urine 1.025 (1.005-1.025); UMIC TRIGGER UA YES; Urine Blood Trace (Negative); Urine Ketones Negative (Negative); Urine Protein Negative (Neg-Trace)
[2024-07-01 07:54] LABS: Bacteria Urine 1+ (None Seen); Hyaline Casts Urine 0-2 /LPF (0-2); RBC Urine 0-2 /HPF (0-2); WBC Urine 0-5 /HPF (0-5)
[2024-07-01 08:16] LABS: Alanine Aminotransferase 32 U/L (0-31); Albumin Level 4.1 g/dL (3.5-5.0); Alkaline Phosphatase 76 U/L (39-117); Anion Gap 11 (12-20); Aspartate Amino Transferase 23 U/L (5-31); Bilirubin Total 0.4 mg/dL (0.0-1.0); Blood Urea Nitrogen 16 mg/dL (9-16); Calcium 9.1 mg/dL (8.4-10.2); Carbon Dioxide 25 mmol/L (22-29); Chloride 107 mmol/L (96-108); Estimated Glomerular Filt Rate > 60; Glucose Random 108 mg/dL (60-115); Phosphorus 3.2 mg/dL (2.7-4.5); Potassium 3.8 mmol/L (3.3-5.1); Sodium 139 mmol/L (135-145)
[2024-07-01 08:52] LABS: Parathyroid Hormone Intact 84.9 pg/mL (8.7-77.1)
== END 2024-07-01 07:06 | disposition home or self-care (01) ==
LOC: HO.LAB 07:05
PROVIDERS: PCP Internal Medicine; Visit Provider Internal Medicine Hypertension Specialist
DX: N20.0 Calculus of kidney (principal)
CPT/HCPCS: 36415; 80053; 81001; 83970; 84100

== ENCOUNTER 2024-07-04 07:49 | Outpatient (REF) | payer OTHER, SELFPAY ==
--- OUTSIDE RECORDS SUMMARY | 2024-07-04 07:53 | XMS_ITS | Clinical Summary ---
Author Organization [facility] Facility Address [address] [place] [address] Care Team Providers Care Bow Maker Custom Name Role Phone Stanley Contreras MD Primary Care Provider [phone] Medications Multiple Vitamin (MULTIVITAMIN ADULT PO) Take [...] 024 Influenza Vaccine (Season Ended) 2024 Insurance [facility] Care Teams Bow Maker Custom Relationship Specialty Start Date End Date Stanley Contreras MD [facility] [place] [address] [place] PCP - General 02/27/20
--- OUTSIDE RECORDS SUMMARY | 2024-07-04 07:53 | XMS_ITS | Encounter Summary ---
Author Organization [facility] Address [address] [facility] [address] [place] [address] Phone Care Team Providers Care Magneto Repairer Name Role Phone Stanley Contreras MD Primary Care Provider [phone] Reason for Visit * Reason Comments Med Refill Encounter Details Date Type Department Care Team (Late st Contact Info) Description 12/06/2022 Refill [facility] [address] [place] [phone] Terrance Card MD Social History Tobacco Use [...] on filedocumented in this encounter Care Teams Magneto Repairer Relationship Specialty Start Date End Date Stanley Contreras MD [facility] [place] [address] [place] PCP - General 02/27/20 documented as of this encounter
[2024-07-04 08:50] LABS: Creatinine, mg/dL 60.77; Uric Acid, mg/dL 23.1 mg/dL
[2024-07-04 08:59] LABS: Creatinine, mg/dL 62.92
[2024-07-04 12:35] LABS: Creatinine, 24Hr Urine 1.1 G/Day (1.0-2.0); Sodium 24 Hr Urine 106.8 mmol/Day (40-220); Total Volume 24 Hour Urine 1750 mL; Uric Acid, 24 Hr Urine 404.3 mg/Day (250-750)
[2024-07-08 13:18] LABS: 24hr Urine Total Volume 1750 mL; Citric Acid, 24hr Urine 149 mg/24 h (100-1300); Citric Acid/Creat Ratio 24U 130 mg/g creat (180-1070); Creatinine, 24U 1.14 g/24 h (0.50-2.15)
[2024-07-08 19:48] LABS: Calcium, 24 Hr Urine 121 mg/24 h; Calcium/Creatinine Ratio 108 mg/g creat (30-275); Creatinine 24Hr Urine 1.12 g/24 h (0.50-2.15)
[2024-07-13 05:08] LABS: 24hr Urine Total Volume 1750 mL; Oxalic Acid 24 Urine 28.6 mg/24 h (3.6-38.0)
== END 2024-07-04 07:50 | disposition home or self-care (01) ==
LOC: HO.LNP 07:49
PROVIDERS: Visit Provider Internal Medicine Hypertension Specialist
DX: Q61.3 Polycystic kidney, unspecified (principal); N20.0 Calculus of kidney
CPT/HCPCS: 82340; 82507; 83945; 84300; 84560

== ENCOUNTER 2024-08-16 09:50 | Outpatient (AMB) | payer OTHER, SELFPAY ==
--- NOTE | 2024-08-16 09:54 | HO.NEPHOV_ITS ---
Vital Signs 08/16/24 09:55 Height 5 ft 3 in Weight 181 lb BMI 32.1 BP 130/84 Blood Pressure Location Lt brachial Position Sitting Pulse 105 H Pulse Source Pulse Oximeter Pulse Oximetry (%) 99 Oxygen Delivery Method Room Air Intake Visit Reasons: 2 MO FU/ LVM Spark Plug Assembler Required: No Accompanied by: Self / Same As Patient Allergies No Known Allergies Allergy (Verified 08/16/24 09:57) Medication List - Last Reconciled 08/16/24 by Terrance Card MD blood pressure monitor (Blood Pressure Kit) As directed cyclobenzaprine 10 mg PO Q8H diclofenac sodium 1% (Arthritis Pain (diclofenac)) 4 grams topical QID ferrous sulfate 325 mg PO BID hydrocortisone 2.5% (Proctosol HC) 1 appl [place] BID PRN levothyroxine 25 mcg PO DAILY@0600 lidocaine 5% (Lidoderm) 1 patch topical DAILY lisinopril 10 mg PO DAILY lorazepam 0.5 mg PO DAILY PRN meclizine 25 mg PO BID PRN meloxicam 15 mg PO DAILY multivitamin 1 tab PO DAILY triamcinolone acetonide 0.5% 1 appl topical BID HPI Comments Details: Ev is well known to me . She is a middle-aged woman with a history of polycystic kidney disease. She was previously seen in October 2022. Recently she was in the emergency room and was found to have bilateral renal stones. She is here for further evaluation. Liliane has a history of polycystic kidney disease There has a family history of PCKD. She has been drinking plenty of Coke in [facility]. 08/16/24 The patient is a 49-year-old female with PCKD presenting with headaches. The headaches have been persistent for approximately two weeks, coinciding with the onset of hot weather. The patient reports taking Tylenol daily to manage the headaches, which are severe enough to disrupt her sleep. However, she denies any symptoms such as blurry vision, nausea, or vomiting that might suggest such complications. Recent urine collection tests indicate normal kidney function with no proteinuria, but low urinary citrate levels were noted. The patient is advised to increase citrate intake through lemonade to prevent kidney stone formation. The patient's blood pressure is recorded at 130/84 mmHg, and she is currently on Lisinopril. She has previously used meloxicam for pain management but prefers to avoid frequent medication use. [facility] Medical History Lumbar strain Pre-employment health screening examination Women's annual routine gynecological examination Breast cancer screening by mammogram Vertigo History of kidney stones Family history of colon cancer Colon cancer screening Vitamin D deficiency Obesity (BMI 30-39.9) Anxiety Iron deficiency anemia Anemia HTN (hypertension) Hypothyroid PKD (polycystic kidney disease) Surgical History Hx of cystoscopy Hx of colonoscopy No pertinent past surgical history Family History Mother Breast cancer Maternal Aunt Breast cancer IBS (irritable bowel syndrome) Maternal Aunt Breast cancer Family/Other Breast cancer Family/Other Breast cancer Sister Colon cancer Cervical cancer Maternal Uncle Heart attack Brother Diabetes Brother Diabetes Other Mental health problem Social History Household Members: Family Household Members Other:: brother Housing: Apartment Are you a primary home child care provider to a significant other at home: No Do you presently have visiting nurse or other home services: No Alcohol intake: former Comment: 2012 quit Patient Tobacco Use Status: Never used Tobacco Tobacco use type: Cigarette e-Cigarette/Vaping Use: Never Used Second Hand Smoke Exposure: No service: No Current occupational status: employed Cognitive needs: No Hearing needs: No Vision needs: Yes Female Reproductive History Menstrual Age of Menarche: 13 Physical Exam Vital Signs: Last Vital Signs Pulse 105 H 08/16/24 09:55 BP 130/84 08/16/24 09:55 Pulse Ox 99 08/16/24 09:55 Oxygen Delivery Method Room Air 08/16/24 09:55 BMI result Body Mass Index 32.1 Comfortable Neck supple no JVD. Lungs entry equal no rales. Heart S1-S2 heard no gallop or rub. Abdomen soft nontender. Neuro alert awake oriented. No asterixis. Extremities no edema. Results Reviewed Nephrology Results: Hgb, (12.0-16.0) 11.6 g/dl L 06/09/24 WBC, (4.8-10.8) 6.2 X10*3/uL 06/09/24 Plt Count, (160-400) 265 X10*3/uL 06/09/24 Sodium, (135-145) 139 mmol/L 07/01/24 Potassium, (3.3-5.1) 3.8 mmol/L 07/01/24 Chloride, (96-108) 107 mmol/L 07/01/24 Carbon Dioxide, (22-29) 25 mmol/L 07/01/24 BUN, (9-16) 16 mg/dL 07/01/24 Creatinine, (0.5-1.4) 0.74 mg/dL 07/01/24 Calcium, (8.4-10.2) 9.1 mg/dL 07/01/24 Phosphorus, (2.7-4.5) 3.2 mg/dL 07/01/24 PTH Intact, (8.7-77.1) 84.9 pg/mL H 07/01/24 Urine Protein, (Neg-Trace) Negative mg/dL 07/01/24 Assessment & Plan Assessment & Plan (1) PKD (polycystic kidney disease): Code(s): Q61.3 - Polycystic kidney, unspecified Category: Medical (2) Bilateral nephrolithiasis: Code(s): N20.0 - Calculus of kidney Category: Medical (3) HTN (hypertension): Code(s): I10 - Essential (primary) hypertension Category: Medical Qualifiers: Hypertension type: essential hypertension Qualified Code(s): I10 - Essential (primary) hypertension (4) Ureteral stone: Code(s): N20.1 - Calculus of ureter Category: Medical Plan Ev is a middle-aged woman with polycystic kidney disease. Renal function stable. History of nephrolithiasis. She has tiny nonobstructing calculus bilaterally. Of note, mild elevation in AST and ALT Plan Obtain 24 urine collection. Encouraged her to stay on low-sodium diet Encouraged her to increase p.o. fluid intake to maintain a urine output of at least 2 L. Avoid cola drinks like Pepsi and Coke. 08/16/24 The patient is advised to continue monitoring her blood pressure and maintain her current medication regimen with Lisinopril. 24 hr urine shows LOW Citrate - she is encouraged to increase her intake of citrate-rich fluids, such as lemonade, to prevent kidney stone formation. Other option is to add Potassium citrate and she refused The patient is advised to manage her headaches with Tylenol as needed and to ensure adequate hydration, particularly during hot weather. If no improvement, she might need Neuro evaluation , especially with a h/o PCKD Follow-up is scheduled in six months to reassess her condition and adjust the management plan as necessary. Orders: Orders Basic Metabolic Panel 6 Months I10 - Essential (primary) hypertension, Q61.3 - Polycystic kidney, unspecified Creatinine Urine 6 Months N20.1 - Calculus of ureter, Q61.3 - Polycystic kidney, unspecified Citric Acid, Random Urine 6 Months N20.1 - Calculus of ureter, Q61.3 - Polycystic kidney, unspecified Coding Level of Care Code Est Pt Level 4 (26195) Diagnoses PKD (polycystic kidney disease) Q61.3 Bilateral nephrolithiasis N20.0 Essential hypertension I10 Hypertension type: essential hypertension Ureteral stone N20.1
[2024-08-16 09:55] VITALS: BP 130/84; PULSE 105; O2SAT 99; BMI 32.1
--- OUTSIDE RECORDS SUMMARY | 2024-08-16 10:44 | XMS_ITS | Clinical Summary ---
Author Organization [facility] Facility Address [address] [place] [phone] Care Team Providers Care Patent Prosecution Attorney Name Role Phone Stanley Contreras MD Primary Care Provider [phone] Medications Multiple Vitamin (MULTIVITAMIN ADULT PO) Take [...] Ended) 2024 Insurance [facility] Care Teams Patent Prosecution Attorney Relationship Specialty Start Date End Date Stanley Contreras MD [facility] DC [address] [place] PCP - General 02/27/20
== END 2024-08-16 10:12 | disposition home or self-care (01) ==
LOC: HO.HKA 09:51
PROVIDERS: PCP Internal Medicine; Visit Provider Internal Medicine Hypertension Specialist
DX: Q61.3 Polycystic kidney, unspecified (principal); N20.0 Calculus of kidney; I10 Essential (primary) hypertension; N20.1 Calculus of ureter
CPT/HCPCS: 99214

== ENCOUNTER 2024-08-29 07:43 | Outpatient (AMB) | payer OTHER, SELFPAY ==
--- NOTE | 2024-08-28 22:05 | MHC.OFFVIS ---
Intake Visit Reasons: kidney stones Intake Note: Patient presents for follow up kidney stones Imaging : 06/09/24 Medications:none Blood thinners: none Paint Line Supervisor Required: No Accompanied by: Self / Same As Patient Allergies No Known Allergies Allergy (Verified 08/29/24 08:00) Medication List - Last Reconciled 08/29/24 by Court Gonzalez MD blood pressure monitor (Blood Pressure Kit) As directed ferrous sulfate 325 mg PO BID levothyroxine 25 mcg PO DAILY@0600 lisinopril 10 mg PO DAILY lorazepam 0.5 mg PO DAILY PRN meclizine 25 mg PO BID PRN multivitamin 1 tab PO DAILY HPI Comments Details: 08/29/24--Ev has a history of kidney stones, and polycystic kidney, she is followed by Nephrology. LV 12/2021 CTAP- 06/09/24--Numerous bilateral renal cysts, largest measuring up to 10.1 cm in the right lower pole. Several of these cysts demonstrate thin wall calcifications. Several smaller cysts are slightly hyperattenuating, most likely proteinaceous or hemorrhagic cysts. The overall appearance is unchanged without suspicious features. There are nonobstructing calculi in both kidneys. There is no hydronephrosis or hydroureter. RK- 4mm stone, LK-3 mm nonobstructing calculus in the upper pole, and in the midpole. 08/29/24 History of Present Illness - The patient is a 49-year-old female presenting with follow-up of polycystic kidney disease and nephrolithiasis. - Polycystic kidney disease: The patient has a history of polycystic kidney disease with numerous bilateral renal cysts noted on a recent CT scan, the largest being 10.1 cm in the right kidney lower pole. - Nephrolithiasis: The patient has a history of kidney stones, with a recent CT scan showing a 4 mm stone in the right kidney and 2-3 mm stones in the left kidney. - Emergency Room Visit: The patient visited the emergency room in April 2024 due to right flank pain, which led to the CT scan revealing the kidney stones. - Current Status: The patient reports feeling fine currently, with no recent episodes of pain or hematuria. - Preventative Measures: The patient has been advised to increase fluid intake to help manage the kidney stones. Results - CT Scan (May 2024): Numerous bilateral renal cysts consistent with polycystic kidney disease; largest cyst in right kidney lower pole at 10.1 cm; 4 mm stone in right kidney; 2-3 mm stones in left kidney. 01/06/22--Ev is a 46-year-old female who is here in follow-up post left ureteroscopy stone extraction and left ureteral stent. The patient has a significant history of poly cystic kidney. The patient is followed by Nephrology. I have discussed further evaluation with 24 hour urine collection. On evaluation today I have reviewed the prior CT scan abdomen and pelvis without IV contrast 01/02/2022, and discussed with the patient there were no other stones noted. Intra op the Dangler/string was left attached to the stent. The stent was removed today. [facility] Medical History Lumbar strain Pre-employment health screening examination Women's annual routine gynecological examination Breast cancer screening by mammogram Vertigo History of kidney stones Family history of colon cancer Colon cancer screening Vitamin D deficiency Obesity (BMI 30-39.9) Anxiety Iron deficiency anemia Anemia HTN (hypertension) Hypothyroid PKD (polycystic kidney disease) Surgical History Hx of cystoscopy Hx of colonoscopy No pertinent past surgical history Family History Mother Breast cancer Maternal Aunt Breast cancer IBS (irritable bowel syndrome) Maternal Aunt Breast cancer Family/Other Breast cancer Family/Other Breast cancer Sister Colon cancer Cervical cancer Maternal Uncle Heart attack Brother Diabetes Brother Diabetes Other Mental health problem Social History Household Members: Family Household Members Other:: brother Housing: Apartment Are you a primary mall plant caretaker to a significant other at home: No Do you presently have visiting nurse or other home services: No Alcohol intake: former Comment: 2012 quit Patient Tobacco Use Status: Never used Tobacco Tobacco use type: Cigarette e-Cigarette/Vaping Use: Never Used Second Hand Smoke Exposure: No service: No Current occupational status: employed Cognitive needs: No Hearing needs: No Vision needs: Yes Female Reproductive History Menstrual Age of Menarche: 13 Review of Systems Const All systems reviewed & are unremarkable except as noted in HPI and below Reports no additional complaints Eyes Reports no additional complaints ENT Reports no additional complaints Card Reports no additional complaints Resp Reports no additional complaints GI Reports no additional complaints Reports as per HPI Musc Reports no additional complaints Skin/Breast Reports system reviewed and no additional complaints, except as documented Neuro Reports no additional complaints Psych Reports no additional complaints Endo Reports no additional complaints Satya/Lymph Reports no additional complaints Aller/Immun Reports no additional complaints Results Reviewed Results Reviewed: Date of Service: 06/09/24 CT ABDOMEN AND PELVIS WITHOUT CONTRAST CLINICAL INFORMATION: Right flank and right lower quadrant abdominal pain. COMPARISON: 01/02/2022, 12/31/2020. TECHNIQUE: Multidetector volumetric imaging was performed from the superior aspect of the liver through the pubic symphysis. Sagittal and coronal reformatted images were obtained on the technologist's workstation. This CT examination was performed using dose optimization techniques as appropriate, variously including the following: *Automated exposure control *Adjustment of mA and/or kV according to patient size (this includes techniques or standardized protocols for targeted exams where dose is matched to indication/reason for exam; i.e. extremities or head) *Use of iterative reconstruction technique FINDINGS: LUNG BASES: The visualized lung bases are unremarkable. LIVER, GALLBLADDER, AND BILIARY TREE: The liver is normal in size, shape, and attenuation. No focal hepatic lesion or biliary ductal dilatation is present. The gallbladder is unremarkable with no evidence of radiopaque gallstones, gallbladder wall thickening, or obvious pericholecystic inflammatory changes. PANCREAS: Unremarkable. SPLEEN: Unremarkable. ADRENAL GLANDS: Unremarkable. KIDNEYS AND URETERS: Right kidney: There are numerous renal cysts present, the largest in the lower pole measuring 10.1 x 9.7 x 10.0 cm. There are numerous smaller cysts present as well, some with thin calcifications within the hurley, similar to prior examinations and consistent with Bosniak 2 type cyst. No definite solid mass identified. There is a 4 mm nonobstructing calculus in the midpole. There is no hydronephrosis or hydroureter. Left kidney: There are numerous renal cysts present, largest in the midpole measuring 7.2 cm in diameter. Several smaller cysts present, also demonstrating peripheral thin calcifications, and some small hyperattenuating likely proteinaceous cysts. The appearance is unchanged from prior exams. There is 3 mm nonobstructing calculus in the upper pole, and in the midpole as well. There is no left hydronephrosis or hydroureter. BLADDER: Normal. The distal ureters appear normal. GASTROINTESTINAL TRACT: Normal appendix. No acute findings in the GI tract. Normal appearance. ABDOMINAL WALL: No significant hernia is appreciated. LYMPH NODES: Previously described subcentimeter left-sided para-aortic and left-sided pelvic lymph nodes are unchanged and consistent with reactive etiology. There is no pathologic adenopathy. VASCULAR: Unremarkable. PELVIC VISCERA: The uterus and adnexa are unremarkable. OSSEOUS STRUCTURES: No suspicious lytic or blastic bone lesions. Mild degenerative changes throughout the spine. Mild hip joint degenerative changes. IMPRESSION: 1. No acute findings in the abdomen or pelvis. 2. Numerous bilateral renal cysts, largest measuring up to 10.1 cm in the right lower pole. Several of these cysts demonstrate thin wall calcifications. Several smaller cysts are slightly hyperattenuating, most likely proteinaceous or hemorrhagic cysts. The overall appearance is unchanged without suspicious features. 3. There are nonobstructing calculi in both kidneys. There is no hydronephrosis or hydroureter. 4. Additional ancillary findings as discussed in the body of the report. Assessment & Plan Assessment & Plan (1) PKD (polycystic kidney disease): Code(s): Q61.3 - Polycystic kidney, unspecified Category: Medical (2) Bilateral nephrolithiasis: Code(s): N20.0 - Calculus of kidney Category: Medical Plan Plan - Monitor kidney stones: Due to the small size of the stones and lack of obstruction, continue monitoring with a follow-up renal ultrasound in one year. - Increase fluid intake: The patient is advised to increase fluid intake to aid in the management of kidney stones. - Follow-up care: Plan for a telehealth visit in one year if the patient remains asymptomatic. Orders: Orders US renal BI 11 Months N20.0 - Calculus of kidney, Q61.3 - Polycystic kidney, unspecified Patient Instructions: The patient had an opportunity to ask questions regarding treatment plan. The patient expressed understanding and agreement with the above treatment plan. The patient is aware they should contact our office by phone for worsening of their current condition or the appearance of new symptoms. Compliance is encouraged with any medications and followup testing that is ordered. It is a privilege to be allowed the opportunity to participate in the urologic care of your patient. If you have any questions or concerns regarding treatment for the above conditions please do not hesitate to contact me. The office telephone contact is [phone]. This note is constructed in part using voice recognition software. While every effort has been made to ensure accuracy sustainable design coordinator errors may have been included. Yours sincerely, Court Gonzalez MD Scribe Plan - Not visible on output: Patient was informed and verbally consented to the use of an ambient scribe for clinic note documentation during this visit. Coding Level of Care Code Est Pt Level 4 (20483) Diagnoses PKD (polycystic kidney disease) Q61.3 Bilateral nephrolithiasis N20.0
--- OUTSIDE RECORDS SUMMARY | 2024-08-29 07:46 | XMS_ITS | Clinical Summary ---
Author Organization [facility] Facility Address [address] [place] [id number] Care Team Providers Care Patient Services Coordinator Name Role Phone Stanley Contreras MD Primary Care Provider [phone] Medications Multiple Vitamin (MULTIVITAMIN ADULT PO) Take [...] of 1 - PCV) 024 Influenza Vaccine (#1) 2024 Insurance [facility] Care Teams Patient Services Coordinator Relationship Specialty Start Date End Date Stanley Contreras MD [facility] [place] [address] [place] PCP - General 02/27/20
== END 2024-08-29 08:20 | disposition home or self-care (01) ==
LOC: HO.HUSH 07:43
PROVIDERS: PCP Internal Medicine; Visit Provider Urology
DX: Q61.3 Polycystic kidney, unspecified (principal); N20.0 Calculus of kidney
CPT/HCPCS: 99214

== ENCOUNTER 2024-09-27 15:08 | Outpatient (AMB) | payer OTHER, SELFPAY ==
--- NOTE | 2024-09-27 15:11 | MHC.PC.OV ---
Vital Signs 09/27/24 15:12 Height 5 ft 3 in Weight 184 lb 2 oz BMI 32.6 BP 124/64 Blood Pressure Location Lt brachial Position Sitting Pulse 94 Pulse Source Pulse Oximeter Temp 97.3 F Temp Source Temporal Artery Scan Pulse Oximetry (%) 96 Oxygen Delivery Method Room Air Intake Visit Reasons: ed follow up Intake Note: Patient is here to follow-up after a visit the emergency department at [facility] on 06/09/24. Blending Supervisor Required: No Complaint Evaluation Supervisor: Not Required per policy Accompanied by: Self / Same As Patient Allergies No Known Allergies Allergy (Verified 09/27/24 15:12) Medication List - Last Reconciled 09/27/24 by Stanley Contreras MD blood pressure monitor (Blood Pressure Kit) As directed cyclobenzaprine 10 mg PO Q8H ferrous sulfate 325 mg PO BID levothyroxine 25 mcg PO DAILY@0600 lisinopril 10 mg PO DAILY lorazepam 0.5 mg PO DAILY PRN meclizine 25 mg PO BID PRN multivitamin 1 tab PO DAILY potassium citrate ER 10 mEq PO TID Tobacco use date assessed: 09/27/24 Dental Screening Dental Screen Date: 04/15/24 [facility] Medical History Lumbar strain Pre-employment health screening examination Women's annual routine gynecological examination Breast cancer screening by mammogram Vertigo History of kidney stones Family history of colon cancer Colon cancer screening Vitamin D deficiency Obesity (BMI 30-39.9) Anxiety Iron deficiency anemia Anemia HTN (hypertension) Hypothyroid PKD (polycystic kidney disease) Surgical History Hx of cystoscopy Hx of colonoscopy No pertinent past surgical history Family History Mother Breast cancer Maternal Aunt Breast cancer IBS (irritable bowel syndrome) Maternal Aunt Breast cancer Family/Other Breast cancer Family/Other Breast cancer Sister Colon cancer Cervical cancer Maternal Uncle Heart attack Brother Diabetes Brother Diabetes Other Mental health problem Social History Household Members: Family Household Members Other:: brother Housing: Apartment Are you a primary wound care specialist to a significant other at home: No Do you presently have visiting nurse or other home services: No Alcohol intake: former Comment: 2012 quit Patient Tobacco Use Status: Never used Tobacco Tobacco use type: Cigarette e-Cigarette/Vaping Use: Never Used Second Hand Smoke Exposure: No service: No Current occupational status: employed Cognitive needs: No Hearing needs: No Vision needs: Yes Female Reproductive History Menstrual Age of Menarche: 13 Questionnaire PHQ-9 Over the last 2 weeks, how often have you been bothered by any of the following problems? 1. Little interest or pleasure in doing things: not at all 2. Feeling down, depressed, or hopeless: not at all 3. Trouble falling or staying asleep, or sleeping too much: not at all Source: Developed by Drs. Brian Faust, Nighat Otto, Mickey Calderon and colleagues, with an educational maya from [employer]. Thrive Questionnaire Date Thrive assessed: 04/08/24 I am a: Patient What is your living situation today?: I have a steady place to live Within the past 12 months, did the food you bought not last and you didn't have the money to get more?: Never true Within the past 12 months, did you worry whether your food would run out before you got money to buy more?: Never true Do you have trouble paying for medicines?: No Do you have trouble getting transportation to medical appointments?: No Do you have trouble paying your heating and electricity bill?: No Do you have trouble taking care of your child, family member or friend?: No Do you have trouble with day-to-day activities such as bathing, preparing meals, shopping, managing finances, etc.?: No Are you currently unemployed and looking for a job?: No Are you interested in more education?: No Please select the resources that you would like help with: None Currently or been in a relationship where the following occur: No concerns reported THRIVE Score: 0 AMANDA-7 AMB Questionnaire AMANDA-7 Date AMANDA - 7 assessed: 04/15/24 Source: Developed by Drs. Brian Faust, Mickey Romero and colleagues, with an educational maya from [employer]. Physical exam (Primary Care) Vital Signs: Last Vital Signs Temp 97.3 F 09/27/24 15:12 Pulse 94 09/27/24 15:12 BP 124/64 09/27/24 15:12 Pulse Ox 96 09/27/24 15:12 Oxygen Delivery Method Room Air 09/27/24 15:12 BMI result Body Mass Index 32.6 Tobacco/Smoking Status: Tobacco use Status Tobacco use date assessed 09/27/24 09/27/24 15:18 Patient Tobacco Use Status Never used Tobacco 09/27/24 15:18 Tobacco use type Cigarette 09/27/24 15:18 e-Cigarette/Vaping Use Never Used 09/27/24 15:18 Thrive Assessment: Date of Thrive Assessment Date Thrive assessed 04/08/24 09/27/24 15:18 Currently or been in a relationship where the following occur: No concerns reported Const General: alert; No acute distress Eyes Conjunctivae: conjunctivae normal Resp Auscultation: clear to auscultation bilaterally Cardio Rate: regular rate Rhythm: regular rhythm GI Inspection: Yes normal to inspection Extrem General: Yes normal to inspection and No edema Coding Level of Care Code Est Pt Level 4 (05472) Complex EM visit Add On G2211 Diagnoses Essential hypertension I10 Hypertension type: essential hypertension Hypercholesterolemia E78.00 Acquired hypothyroidism E03.9 Hypothyroidism type: acquired Obesity (BMI 30-39.9) E66.9 PKD (polycystic kidney disease) Q61.3 Bilateral nephrolithiasis N20.0 Anemia of chronic disease D63.8 Assessment & Plan Assessment & Plan (1) HTN (hypertension): Code(s): I10 - Essential (primary) hypertension Category: Medical Qualifiers: Hypertension type: essential hypertension Qualified Code(s): I10 - Essential (primary) hypertension Plan: Continue with blood pressure medication. Decrease salt intake and exercise patient on lisinopril 10 mg once a day (2) Hypercholesterolemia: Code(s): E78.00 - Pure hypercholesterolemia, unspecified Category: Medical Plan: Avoid fried foods, chicken skin, eggs, butter margarine, pastries and meat. Be it pork or beef they have a lot of cholesterol LDL goal of less than 130 and triglyceride of less than 150 (3) Hypothyroid: Code(s): E03.9 - Hypothyroidism, unspecified Category: Medical Qualifiers: Hypothyroidism type: acquired Qualified Code(s): E03.9 - Hypothyroidism, unspecified Plan: Continue with thyroid medication (4) Obesity (BMI 30-39.9): Code(s): E66.9 - Obesity, unspecified Category: Medical Plan: Diet and exercise (5) PKD (polycystic kidney disease): Code(s): Q61.3 - Polycystic kidney, unspecified Category: Medical Plan: Continuing to monitor (6) Bilateral nephrolithiasis: Code(s): N20.0 - Calculus of kidney Category: Medical Plan: Increase oral fluids and continue with potassium citrate (7) Anemia of chronic disease: Code(s): D63.8 - Anemia in other chronic diseases classified elsewhere Category: Medical Plan: Continuing to monitor. Patient has seen hematology oncology Plan History of Present Illness The patient is a 49-year-old female presenting for a follow-up visit. She has a history of hypertension, managed with lisinopril 10 mg daily, and her blood pressure is currently well-controlled. Her hypothyroidism is stable with ongoing thyroid medication. 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 She has been advised to increase fluid intake and consume citric-rich foods to prevent kidney stone formation. Potassium citrate was recommended, but she takes it only twice a day instead of the prescribed three times. Her anemia is consistent with anemia of chronic disease with a component of iron deficiency, and she is followed by hematology oncology. Recent blood work showed mild anemia with hemoglobin at 11.1 g/dL and hematocrit at 36.1%, with normal iron levels. Her electrolytes, renal function, and liver function tests are within normal limits. The patient also has generalized anxiety disorder and is prescribed lorazepam for management. 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 Her hypercholesterolemia is managed with dietary modifications, and her LDL cholesterol is currently at 101 mg/dL. She is advised to maintain an LDL goal of less than 130 mg/dL and triglycerides less than 150 mg/dL. 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 Review of Systems - Cardiovascular: Denies chest pain or palpitations - Endocrine: Reports stable thyroid function - Hematologic: Reports stable anemia, denies new symptoms - Renal: Reports compliance with fluid intake recommendations, denies new symptoms - Psychiatric: Reports anxiety exacerbated by work stress Physical Exam Results - Labs: Hemoglobin 11.1 g/dL, Hematocrit 36.1%, normal iron levels - Labs: Normal electrolytes, renal function, and liver function tests - Labs: LDL cholesterol 101 mg/dL, triglycerides 82 mg/dL Plan The patient will continue her current antihypertensive regimen of lisinopril 10 mg daily, as her blood pressure is well-controlled. Her hypothyroidism management will remain unchanged with ongoing thyroid medication. For her polycystic kidney disease and nephrolithiasis, she is advised to maintain adequate hydration and consume citric-rich foods to prevent stone formation. Potassium citrate is recommended, but she is currently taking it twice daily instead of the prescribed three times. Her anemia will continue to be monitored by hematology oncology, with recent labs showing mild anemia but stable iron levels. She is advised to maintain her current dietary intake to support her hematologic health. For her generalized anxiety disorder, lorazepam will be prescribed as needed, with a focus on managing work-related stress. Her hypercholesterolemia management includes dietary modifications, with a goal to maintain LDL cholesterol below 130 mg/dL and triglycerides below 150 mg/dL. Patient was informed and verbally consented to the use of an ambient scribe for clinic note documentation during this visit. Discussion Notes During the visit, I discussed with the patient the importance of maintaining her current medication regimen for hypertension and hypothyroidism. We reviewed her kidney health management, emphasizing the need for adequate hydration and dietary modifications to prevent nephrolithiasis. I also addressed her anemia management, noting the stability of her condition and the importance of continued monitoring by hematology oncology. For her anxiety, we discussed the use of lorazepam and strategies to manage work-related stress. Additionally, we reviewed her cholesterol management goals and the importance of dietary modifications. Patient Instructions - Continue taking lisinopril 10 mg daily for blood pressure control. - Maintain current thyroid medication regimen. - Increase fluid intake and consume citric-rich foods to prevent kidney stones. - Take potassium citrate as prescribed, ideally three times a day. - Use lorazepam as needed for anxiety, focusing on stress management strategies. - Follow dietary recommendations to maintain cholesterol levels within target range. - Schedule next colonoscopy in 2026 and keep mammogram up to date. Medications: Refilled lorazepam 0.5 mg PO DAILY PRN 30 tabs 1RF anxiety F41.1 - Generalized anxiety disorder lorazepam 0.5 mg PO DAILY PRN 14 tabs 1RF anxiety F41.1 - Generalized anxiety disorder
[2024-09-27 15:12] VITALS: BP 124/64; PULSE 94; TEMP 36.3; O2SAT 96; BMI 32.6
--- OUTSIDE RECORDS SUMMARY | 2024-09-27 15:59 | XMS_ITS | Clinical Summary ---
Author Organization [facility] Facility Address [address] [place] [id number] Care Team Providers Care Water Safety Instructor Name Role Phone Stanley Contreras MD Primary Care Provider [phone] Medications Multiple Vitamin (MULTIVITAMIN ADULT PO) Take [...] PCV) 024 Influenza Vaccine (#1) [address] [facility] Care Teams Water Safety Instructor Relationship Specialty Start Date End Date Stanley Contreras MD [facility] [place] [address] [place] [address] PCP - General 02/27/20
== END 2024-09-27 15:39 | disposition home or self-care (01) ==
LOC: HO.HMCH 15:09
PROVIDERS: PCP Internal Medicine; Visit Provider Internal Medicine
DX: I10 Essential (primary) hypertension (principal); E78.00 Pure hypercholesterolemia, unspecified; Z68.32 Body mass index [BMI] 32.0-32.9, adult; E66.9 Obesity, unspecified; Q61.3 Polycystic kidney, unspecified; E03.9 Hypothyroidism, unspecified; N20.0 Calculus of kidney; D63.8 Anemia in other chronic diseases classified elsewhere

== ENCOUNTER 2025-01-10 07:55 | Outpatient (REF) | payer OTHER, SELFPAY ==
[2025-01-10 08:09] LABS: MANUAL DIFF FLAG NO
[2025-01-10 08:45] LABS: Hematocrit 37.8 % (37.0-47.0); Hemoglobin 11.4 g/dl (12.0-16.0); Imm Gran Abs Auto 0.02 X10*3/uL (0.00-0.03); Imm Gran Pct Auto 0.3 % (0.0-0.4); Lymphocytes Absolute Auto 1.8 X10*3/uL (1.2-4.9); Mean Corpuscular HGB Conc 30.2 g/dl (31.0-35.0); Mean Corpuscular Hemoglobin 21.9 pg (27.0-33.0); Mean Corpuscular Volume 72.7 fL (80.0-98.0); NRBC Abs Auto 0.000 X10*3/uL (0.0-0.012); NRBC Pct Auto 0.0 /100WBC (0.0-0.2); Platelet Count 331 X10*3/uL (160-400); Red Blood Count 5.20 X10*6/uL (4.20-5.50); Reticulocytes Absolute 0.086 X10*6/uL (0.026-0.095); White Blood Count 5.8 X10*3/uL (4.8-10.8)
[2025-01-10 09:27] LABS: Alanine Aminotransferase 69 U/L (0-31); Albumin Level 4.2 g/dL (3.5-5.0); Alkaline Phosphatase 89 U/L (39-117); Anion Gap 11 (12-20); Aspartate Amino Transferase 51 U/L (5-31); Blood Urea Nitrogen 15 mg/dL (9-16); Calcium 9.1 mg/dL (8.4-10.2); Carbon Dioxide 25 mmol/L (22-29); Chloride 108 mmol/L (96-108); Cholesterol 178 mg/dL (<200); Estimated Glomerular Filt Rate > 60; HDL Cholesterol 44 mg/dL (>40); Iron 94 mcg/dL (30-160); Percent Iron Saturation 32 % (15-50); Potassium 3.9 mmol/L (3.3-5.1); Sodium 140 mmol/L (135-145); Total Iron Binding Capacity 294 mcg/dL (228-428); Total Protein 7.1 g/dL (6.5-8.0); Triglycerides 99 mg/dL (<150); Unsaturated Iron Binding 200 ug/dL
[2025-01-10 09:47] LABS: Ferritin 64 ng/mL (10-250); Free T4 (Free Thyroxine) 0.94 ng/dL (0.71-1.85); Thyroid Stimulating Hormone 2.08 uIU/mL (0.32-4.0)
[2025-01-10 09:54] LABS: Folate 14.5 ng/mL (> or = 4.0); Vitamin B12 830 pg/mL (200-900)
== END 2025-01-10 07:56 | disposition home or self-care (01) ==
LOC: HO.LAB 07:55
PROVIDERS: PCP Internal Medicine; Visit Provider Internal Medicine Hypertension Specialist
DX: E03.9 Hypothyroidism, unspecified (principal); E78.00 Pure hypercholesterolemia, unspecified; Z13.21 Encounter for screening for nutritional disorder; Z13.0 Encounter for screening for diseases of the blood and blood-forming organs and certain disorders involving the immune mechanism; Z13.1 Encounter for screening for diabetes mellitus
CPT/HCPCS: 36415; 80053; 80061; 82306; 82607; 82728; 82746; 83036; 83540; 84439; 84443; 85025; 85045

== ENCOUNTER 2025-01-11 14:41 | Outpatient (AMB) | payer OTHER, SELFPAY ==
[2025-01-11 14:45] VITALS: BP 128/84; PULSE 96; O2SAT 97; BMI 33.9
--- NOTE | 2025-01-11 14:45 | A.OFFVIS_ITS ---
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 PMH is notable for: anemia, HTN, assymptomatic kidney stones, hypothyroidism, obesity. She reports she has headaches at times, which she typically has in the summer months or in the winter if her apartment is too warm (as her landlord sets the heat quite high in her apartment). She states these headaches respond quickly to Tylenol 650mg tabs and a quick nap. She has had these headaches for quite some time, but unsure for exactly how long. She also ask if we can look at her right ear, as she woke up with right ear pain this morning after cleaning the ear. She denies recent fever, ear drainage, dorita-auricle pain, lymphadenopathy, dental pain, or recent URI symptoms. PMH and ROS are notable for:? HEENT: Reports some swallowing difficulties, such as breaks large pills in half to avoid a choking sensation. Musculoskeletal: Reports leg cramps, particularly in the summer. Denies restless legs. Psychiatric: Reports history of nocturnal anxiety with panic attacks, now resolved. Constitutional: Reports daytime sleepiness and fatigue. Denies fever. Genitourinary: Reports irregular menstrual cycles. Denies bowel or bladder problems. Integumentary: Reports history of eczema that has since resolved. Pertinent denials include: Denies pain in the back of the throat, watery eyes, diplopia, dizziness, neck pain, seizures, syncope, or clotting d/o's Lifestyle considerations * Typical nutrition intake: i eat too much * Typical fluid intake per day: trying to drink more fluids- adds lemon/lemonade powder- as she does drink plain water * Caffeine use: 2 cups of black coffee per day, usually in the morning and after work at 5pm * Sleep routine: Usual bedtime: 11pm-1am depending on whether she can relax or not- gets home from [employer] around 10:30pm a couple nights per week, may take a benadryl to help her sleep. and wake-up time: 6am * Sleep difficulties: Endorses: Snoring, Excessive daytime sleepiness if fragmented sleep, Fatigue, Gasping Arousals- more so if anxious, Leg Cramps- more so in the summer. * Substance use: Denies * Exercise:?Denies * Employment:?works at a [employer]- 7:30am-4:30pm * Reproductive health status: Menses has been irregular this past year. Headache questionnaire * Types of headache disorders: 1 * Age/time of onset: unsure * Preceding causes: denies * Family history of headache disorder: brother and mother also has headaches triggered by the heat * Previous work-up: * Head imaging (unsure if MRI or CT): in her 20s * Previous neurological care: None * Eye care provider: [facility] * Dentist: Dentist- unsure of clinic name, [facility] Typical headache characteristics * Duration of each headache attack: responds quickly to Tylenol and sleep * Frequency of this attack: can be daily during warmer weather, otherwise occasional * Time of day this headache usually occurs: No specific circadian pattern during the summer. Now that the heat is on in her apartment, she may wake up with a headache * Time of year or season this headache usually occurs: Usually in the warmer months * Prodrome symptoms: Denies * Aura: Denies * Pain intensity: mild * Location, quality, characteristics: in her temples * Associated symptoms: None- specifically denies photophobia, phonophobia, photophobia, nausea/vomiting/activity intolerance. * Atypical associated symptoms: None * Postdrome: Denies * Aggravating factors during this headache: * Alleviating factors during this headache: denies * Triggers that provoke this headache: heat exposure * Headache impact on your quality of life: mild Current treatment strategies * Current acute medication use/interventions: Tylenol 650mg * Current preventative medication use: Denies- however she is on lisinopril for HTN tx. * Current non-pharmacological interventions: rest [facility] Medical History Lumbar strain Pre-employment health screening examination Women's annual routine gynecological examination Breast cancer screening by mammogram Vertigo History of kidney stones Family history of colon cancer Colon cancer screening Vitamin D deficiency Obesity (BMI 30-39.9) Anxiety Iron deficiency anemia Anemia HTN (hypertension) Hypothyroid PKD (polycystic kidney disease) Surgical History Hx of cystoscopy Hx of colonoscopy No pertinent past surgical history Family History Mother Breast cancer Maternal Aunt Breast cancer IBS (irritable bowel syndrome) Maternal Aunt Breast cancer Family/Other Breast cancer Family/Other Breast cancer Sister Colon cancer Cervical cancer Maternal Uncle Heart attack Brother Diabetes Brother Diabetes Other Mental health problem Social History Household Members: Family Household Members Other:: brother Housing: Apartment Are you a primary health care analyst to a significant other at home: No Do you presently have visiting nurse or other home services: No Alcohol intake: former Comment: 2012 quit Patient Tobacco Use Status: Never used Tobacco Tobacco use type: Cigarette e-Cigarette/Vaping Use: Never Used Second Hand Smoke Exposure: No service: No Current occupational status: employed Cognitive needs: No Hearing needs: No Vision needs: Yes Female Reproductive History Menstrual Age of Menarche: 13 Physical Exam Vital Signs: Last Vital Signs Pulse 96 01/11/25 14:45 BP 128/84 01/11/25 14:45 Pulse Ox 97 01/11/25 14:45 Oxygen Delivery Method Room Air 01/11/25 14:45 BMI result Body Mass Index 33.9 Const Orientation/consciousness: patient oriented x3 Resp Effort & Inspection: normal respiratory effort and able to speak in complete sentences Neuro Other: No palpable scalp tenderness. No palpable auricular or dorita-auricular discomfort. No palpable lymphadenopathy Small amount of dried blood within right ear ishan- cavum. Without erythema, induration, odor, nevin drainage. Mallampati stage IV General: patient oriented x3 Cranial nerves: Yes CN's II-XII intact bilaterally Cognition (Neuro): normal cognition Gait exam (Neuro): Normal gait present Motor exam (neuro): 5/5 motor strength present throughout Deep tendon reflexes (DTR's): Right triceps reflex intensity grade: 2+, Left triceps reflex intensity grade: 2+, Rt Biceps (C5, C6): 2+, Left biceps reflex intensity grade: 2+, Right brachioradialis reflex intensity grade: 2+, Left brachioradialis reflex intensity grade: 2+, Right patellar reflex intensity grade: 2+ and Left patellar reflex intensity grade: 2+ Coordination: [id number] test normal, tandem gait normal and Romberg test negative Pupils: Normal pupillary reactivity/response: bilateral Psych Appearance: grossly normal Mental Status: mental status grossly normal Speech and movement: Normal speech and movement present Affect: normal affect Attitude: cooperative Thought process: Normal thought process present Assessment & Plan Assessment & Plan (1) Headache: Code(s): R51.9 - Headache, unspecified Category: Medical Qualifiers: Headache type: unspecified Headache chronicity pattern: episodic headache Intractability: not intractable Qualified Code(s): R51.9 - Headache, unspecified (2) PKD (polycystic kidney disease): Code(s): Q61.3 - Polycystic kidney, unspecified Category: Medical (3) Snoring: Code(s): R06.83 - Snoring Category: Medical (4) Sleep difficulties: Code(s): G47.9 - Sleep disorder, unspecified Category: Medical (5) Excessive daytime sleepiness: Comment: ESS 15 Code(s): G47.19 - Other hypersomnia Category: Medical Plan Discussion note I explained to the patient that the clinical presentation and physical exam were reassuring and did not suggest an urgent neurological problem. For completeness and to address the referring provider's concern regarding risk for neurological manifestations of PKD, I recommended a brain MRI with and without contrast and Brain MRA without contrast to assess for underlying cerebral and/or vascular/cystic processes. I also recommended a sleep study, explaining that undiagnosed sleep apnea could contribute to hypertension (as well as daytime sleepiness), which is important to control given the patient's PKD, and could also lower the threshold for headaches. We discussed that a home sleep study would be arranged to accommodate the patient's transportation limitations. As she is not currently experiencing bothersome headaches, she is hesitant to start preventative headache supplements or prescription medications at this time. She may continue to use as-needed Tylenol and rest for now. However, we will consider implementation of preventative strategies if the headache frequency and severity worsens. Regarding the new right ear pain and finding of dried blood, I advised the patient to seek evaluation with PCP or urgent care if the pain recurs or worsens, and to be gentle with ear cleaning. I acknowledged the patient has a scheduled follow-up with their primary doctor next week. You are advised to undergo the following: Brain MRI with and without contrast Brain MRA without contrast Home sleep study Headache Management Tips Combining good self-care with some helpful tools can make managing headaches much easier. Healthy Habits * Eat a balanced diet * Drink enough water throughout the day, typically at least 64 oz of fluid per day * Get regular, adequate sleep consisting of 7-9 hours of sleep per night * Stay active with routine physical activity, typically at least 30 minutes 5 days per week * Stay connected with friends and family, enjoy meaningful activities, and take care of your mood Tracking Your Headaches * Write down when headaches happen, what helps, and any side effects of new treatments * There are several options to help you, such as: * Apps such as Migraine Med * A simple paper calendar or paper migraine tracker Non-Medication Strategies * You may use cold or warm packs for 20-30 minutes as needed * You may continue to rest in a quiet, dimly lit area as needed For acute (as needed) headache treatment: It is important to take acute medications at the first sign of headache. However, please be aware that frequently using most acute medications may increase the frequency of your headache attacks, as well as make your other treatments less effective. * May continue Tylenol 650-1000 mg every 4-6 hours as needed * May cyclobenzaprine 10 mg every 8 hours as needed Previous acute migraine medication trials: None other Acute headache medication contraindications: Would avoid triptans and DHE due to PKD, HTN, HLD For headache prevention medication: Preventative medications should be taken routinely as prescribed for best effect, it may take several weeks for full effect to take effect. * Continue lisinopril 10 mg daily Previous headache prevention medication trials: Topiramate due to kidney stones. Migraine headache medication contraindications: Depakote d/t female of childbearing age. We will follow-up upon review of above and with a follow-up clinic visit in 3-6 months or sooner as needed. Patient was informed and verbally consented to the use of an ambient scribe for clinic note documentation during this visit. Orders: Orders 2 MR angio head wo con Today E78.00 - Pure hypercholesterolemia, unspecified, I10 - Essential (primary) hypertension, Q61.3 - Polycystic kidney, unspecified, R51.9 - Headache, unspecified RT home sleep study Today G47.19 - Other hypersomnia, G47.9 - Sleep disorder, unspecified, R06.83 - Snoring MR head/brain wo/w con Today E78.00 - Pure hypercholesterolemia, unspecified, I10 - Essential (primary) hypertension, Q61.3 - Polycystic kidney, unspecified, R51.9 - Headache, unspecified Coding Level of Care Code New Pt Level 4 (20231) Diagnoses Nonintractable episodic headache, unspecified headache type R51.9 Headache type: unspecified Headache chronicity pattern: episodic headache Intractability: not intractable PKD (polycystic kidney disease) Q61.3 Snoring R06.83 Sleep difficulties G47.9 Excessive daytime sleepiness G47.19
== END 2025-01-11 16:07 | disposition home or self-care (01) ==
LOC: HO.HSMS 14:41
PROVIDERS: PCP Internal Medicine; Visit Provider Nurse Practitioner Family
DX: R51.9 Headache, unspecified (principal); Q61.3 Polycystic kidney, unspecified; R06.83 Snoring; G47.9 Sleep disorder, unspecified; G47.19 Other hypersomnia
CPT/HCPCS: 99204

== ENCOUNTER 2025-01-17 09:43 | Outpatient (AMB) | payer OTHER, SELFPAY ==
--- NOTE | 2025-01-17 09:47 | HO.NEPHOV_ITS ---
Vital Signs 01/17/25 09:48 Height 5 ft 3 in Weight 192 lb BMI 34.0 BP 126/80 Blood Pressure Location Rt brachial Position Sitting Pulse 115 H Pulse Source Pulse Oximeter Pulse Oximetry (%) 98 Oxygen Delivery Method Room Air Intake Visit Reasons: Dec follow-up Biology Teacher Required: No Accompanied by: Self / Same As Patient Allergies No Known Allergies Allergy (Verified 01/17/25 09:49) Medication List - Last Reconciled 01/17/25 by Terrance Card MD blood pressure monitor (Blood Pressure Kit) As directed cyanocobalamin (vitamin B-12) 1,000 mcg sublingual DAILY cyclobenzaprine 10 mg PO Q8H ferrous sulfate 325 mg PO BID levothyroxine 25 mcg PO DAILY@0600 lisinopril 10 mg PO DAILY lorazepam 0.5 mg PO DAILY PRN meclizine 25 mg PO BID PRN multivitamin 1 tab PO DAILY HPI Comments Details: Ev is well known to me . She is a middle-aged woman with a history of polycystic kidney disease. She was previously seen in October 2022. Recently she was in the emergency room and was found to have bilateral renal stones. She is here for further evaluation. Liliane has a history of polycystic kidney disease There has a family history of PCKD. She has been drinking plenty of Coke in [facility]. 08/16/24 The patient is a 49-year-old female with PCKD presenting with headaches. The headaches have been persistent for approximately two weeks, coinciding with the onset of hot weather. The patient reports taking Tylenol daily to manage the headaches, which are severe enough to disrupt her sleep. However, she denies any symptoms such as blurry vision, nausea, or vomiting that might suggest such complications. Recent urine collection tests indicate normal kidney function with no proteinuria, but low urinary citrate levels were noted. The patient is advised to increase citrate intake through lemonade to prevent kidney stone formation. The patient's blood pressure is recorded at 130/84 mmHg, and she is currently on Lisinopril. She has previously used meloxicam for pain management but prefers to avoid frequent medication use. 01/17/25 The patient is a 49 year old individual presenting for a semiannual follow-up for polycystic kidney disease. The patient reports feeling well and has stable blood pressure on lisinopril 10 mg without any side effects. There are no reports of dysuria, urinary tract infections, leg swelling, or foamy urine. A prior urine analysis in June showed no proteinuria. The patient has a history of kidney stones but reports no related symptoms at this time. The patient discontinued a previously prescribed medication, believed to be cyclobenzaprine for kidney stones from urology, due to its cost. Current medications include lisinopril, levothyroxine, lorazepam, meclizine, vitamin B12, iron, and a multivitamin. The patient has noted some recent weight gain and consumes alcohol. [facility] Medical History Lumbar strain Pre-employment health screening examination Women's annual routine gynecological examination Breast cancer screening by mammogram Vertigo History of kidney stones Family history of colon cancer Colon cancer screening Vitamin D deficiency Obesity (BMI 30-39.9) Anxiety Iron deficiency anemia Anemia HTN (hypertension) Hypothyroid PKD (polycystic kidney disease) Surgical History Hx of cystoscopy Hx of colonoscopy No pertinent past surgical history Family History Mother Breast cancer Maternal Aunt Breast cancer IBS (irritable bowel syndrome) Maternal Aunt Breast cancer Family/Other Breast cancer Family/Other Breast cancer Sister Colon cancer Cervical cancer Maternal Uncle Heart attack Brother Diabetes Brother Diabetes Other Mental health problem Social History Household Members: Family Household Members Other:: brother Housing: Apartment Are you a primary pet care technician to a significant other at home: No Do you presently have visiting nurse or other home services: No Alcohol intake: former Comment: 2012 quit Patient Tobacco Use Status: Never used Tobacco Tobacco use type: Cigarette e-Cigarette/Vaping Use: Never Used Second Hand Smoke Exposure: No service: No Current occupational status: employed Cognitive needs: No Hearing needs: No Vision needs: Yes Female Reproductive History Menstrual Age of Menarche: 13 Physical Exam Vital Signs: Last Vital Signs Pulse 115 H 01/17/25 09:48 BP 126/80 01/17/25 09:48 Pulse Ox 98 01/17/25 09:48 Oxygen Delivery Method Room Air 01/17/25 09:48 BMI result Body Mass Index 34.0 Comfortable Neck supple no JVD. Lungs entry equal no rales. Heart S1-S2 heard no gallop or rub. Abdomen soft nontender. Neuro alert awake oriented. No asterixis. Extremities no edema. Results Reviewed Nephrology Results: Hgb, (12.0-16.0) 11.4 g/dl L 01/10/25 WBC, (4.8-10.8) 5.8 X10*3/uL 01/10/25 Plt Count, (160-400) 331 X10*3/uL 01/10/25 Sodium, (135-145) 140 mmol/L 01/10/25 Potassium, (3.3-5.1) 3.9 mmol/L 01/10/25 Chloride, (96-108) 108 mmol/L 01/10/25 Carbon Dioxide, (22-29) 25 mmol/L 01/10/25 BUN, (9-16) 15 mg/dL 01/10/25 Creatinine, (0.5-1.4) 0.77 mg/dL 01/10/25 Calcium, (8.4-10.2) 9.1 mg/dL Δ 01/10/25 Assessment & Plan Assessment & Plan (1) PKD (polycystic kidney disease): Code(s): Q61.3 - Polycystic kidney, unspecified Category: Medical (2) Bilateral nephrolithiasis: Code(s): N20.0 - Calculus of kidney Category: Medical (3) HTN (hypertension): Code(s): I10 - Essential (primary) hypertension Category: Medical Qualifiers: Hypertension type: essential hypertension Qualified Code(s): I10 - Essential (primary) hypertension (4) Ureteral stone: Code(s): N20.1 - Calculus of ureter Category: Medical Plan Ev is a middle-aged woman with polycystic kidney disease. Renal function stable. History of nephrolithiasis. She has tiny nonobstructing calculus bilaterally. Of note, mild elevation in AST and ALT Encouraged her to increase p.o. fluid intake to maintain a urine output of at least 2 L. Avoid cola drinks like Pepsi and Coke. 01/17/25 Renal function is stable The patient is advised to continue monitoring her blood pressure and maintain her current medication regimen with Lisinopril. 24 hr urine shows LOW Citrate - she is encouraged to increase her intake of citrate-rich fluids, such as lemonade, to prevent kidney stone formation. ;Other option is to add Potassium citrate and she refused The patient is advised to manage her headaches with Tylenol as needed and to ensure adequate hydration, particularly during hot weather. If no improvement, she might need Neuro evaluation , especially with a h/o PCKD Follow-up is scheduled in six months to reassess her condition and adjust the management plan as necessary. Discussed weight loss Orders: Orders Creatinine Urine 6 Months I10 - Essential (primary) hypertension, Q61.3 - Polycystic kidney, unspecified UA and rflx microscopic 6 Months I10 - Essential (primary) hypertension, Q61.3 - Polycystic kidney, unspecified Total Protein Urine Random 6 Months I10 - Essential (primary) hypertension, Q61.3 - Polycystic kidney, unspecified Basic Metabolic Panel 6 Months I10 - Essential (primary) hypertension, Q61.3 - Polycystic kidney, unspecified Coding Level of Care Code Est Pt Level 4 (09191) Diagnoses PKD (polycystic kidney disease) Q61.3 Bilateral nephrolithiasis N20.0 Essential hypertension I10 Hypertension type: essential hypertension Ureteral stone N20.1
[2025-01-17 09:48] VITALS: BP 126/80; PULSE 115; O2SAT 98; BMI 34.0
--- OUTSIDE RECORDS SUMMARY | 2025-01-17 10:46 | XMS_ITS | Clinical Summary ---
Author Organization [facility] Address [address] [place] [id number] Care Team Providers Care Moving Van Driver Name Role Phone Stanley Contreras MD Primary [...] PCV) 024 Influenza Vaccine (#1) 2024 Insurance [facility] Care Teams Moving Van Driver Relationship Specialty Start Date End Date Stanley Contreras MD [facility] [place] [address] [place] PCP - General 02/27/20
--- OUTSIDE RECORDS SUMMARY | 2025-01-17 10:46 | XMS_ITS | Encounter Summary ---
Author Organization [facility] Address [address] [address] [address] [place] [address] Phone Care Team Providers Care Fire Prevention Forester Name Role Phone Stanley Contreras MD Primary Care Provider [phone] Reason for Visit * Reason Comments Med Refill Encounter Details Date Type Department Care Team (Late st Contact Info) Description 12/06/2022 Refill [facility] [address] [place] [id number] Terrance Card MD Social History Tobacco Use [...] on filedocumented in this encounter Care Teams Fire Prevention Forester Relationship Specialty Start Date End Date Stanley Contreras MD [facility] [address] [place] PCP - General 02/27/20 documented as of this encounter
== END 2025-01-17 10:01 | disposition home or self-care (01) ==
LOC: HO.HKA 09:44
PROVIDERS: PCP Internal Medicine; Visit Provider Internal Medicine Hypertension Specialist
DX: Q61.3 Polycystic kidney, unspecified (principal); N20.0 Calculus of kidney; I10 Essential (primary) hypertension; N20.1 Calculus of ureter
CPT/HCPCS: 99214